=== PATIENT | male | born 1950 | race Caucasian/White ===

== ENCOUNTER 2022-04-22 08:40 | Outpatient (CLI) | payer BC, SELFPAY ==
[2022-04-22 12:32] LABS: Albumin* 4.3 g/dL (3.3-5.0)
[2022-04-22 12:33] LABS: Chloride* 104 mmol/L (96-114); Potassium* 4.7 mmol/L (3.6-5.1); Sodium* 137 mmol/L (135-149)
[2022-04-22 12:35] LABS: Aspartate Amino Transferase* 23 U/L (12-35); Bilirubin Total* 0.6 mg/dL (0.1-1.5); Carbon Dioxide* 26 mmol/L (20-32); Cholesterol* 205 mg/dL (90-199); Creatinine* 0.8 mg/dL (0.5-1.5); Estimated Glomerular Filt Rate 95 ml/min; Total Protein* 7.1 g/dL (6.0-8.3)
[2022-04-22 12:36] LABS: Alanine Aminotransferase* 11 U/L (4-50); Alkaline Phosphatase* 90 U/L (40-150); Blood Urea Nitrogen* 18 mg/dL (7-30); Calcium* 9.1 mg/dL (8.4-10.6); Glucose* 100 mg/dL (60-115); HDL Cholesterol* 59 mg/dL (>=40); LDL Cholesterol Calculated 129 mg/dL (<100); Triglycerides* 87 mg/dL (40-149)
[2022-04-22 13:03] LABS: PSA Screen* 0.14 ng/mL (0.10-4.00)
== END 2022-04-22 08:41 | disposition home or self-care (01) ==
LOC: LKVLAB 08:41
PROVIDERS: PCP Physician Assistant Medical; Visit Provider Physician Assistant Medical
DX: Z00.00 Encounter for general adult medical examination without abnormal findings (principal); Z12.5 Encounter for screening for malignant neoplasm of prostate; E03.9 Hypothyroidism, unspecified; E78.00 Pure hypercholesterolemia, unspecified
CPT/HCPCS: 36415; 80053; 80061; 84153; 84443

== ENCOUNTER 2022-05-26 07:06 | Outpatient (CLI) | payer BC, SELFPAY | END 2022-05-26 07:07 | disposition home or self-care (01) | PROVIDERS: PCP Physician Assistant Medical; Visit Provider Surgery | DX: Z12.11 Encounter for screening for malignant neoplasm of colon (principal); K63.5 Polyp of colon; N42.9 Disorder of prostate, unspecified; K57.30 Diverticulosis of large intestine without perforation or abscess without bleeding; Z80.0 Family history of malignant neoplasm of digestive organs | CPT/HCPCS: 45385; 88305; 99153; J1200; J2250; J3010 ==

== ENCOUNTER 2022-08-22 14:16 | Outpatient (CLI) | payer BC, SELFPAY ==
[2022-08-22 23:14] LABS: C Reactive Protein* 2.1 mg/dL (0.5-1.0)
== END 2022-08-22 14:17 | disposition home or self-care (01) ==
LOC: LKVREF 14:19
PROVIDERS: PCP Physician Assistant Medical; Visit Provider Nurse Practitioner Family
DX: M25.551 Pain in right hip (principal); M25.552 Pain in left hip
CPT/HCPCS: 86140

== ENCOUNTER 2023-02-06 09:15 | Outpatient (CLI) | payer BC, SELFPAY | END 2023-02-06 09:16 | disposition home or self-care (01) | LOC: LAB 09:16 | PROVIDERS: PCP Physician Assistant Medical; Visit Provider Orthopaedic Surgery Sports Medicine | DX: Z98.890 Other specified postprocedural states (principal) | CPT/HCPCS: 36415; 86850; 86900; 86901 ==

== ENCOUNTER 2023-02-08 08:43 | Day surgery (SDC) | payer BC, SELFPAY ==
[2023-02-08] VITALS (23 sets, daily range): BP systolic 103–154; BP diastolic 62–87; PULSE 62–783; RESP 14–18; TEMP 35.6–36.7; O2SAT 95–100; BMI 25.4
[2023-02-08] MEDS: LACTATED RINGERS 1000 ML 1,000 ML 100 ML IV ×2 (09:00→12:22)
[2023-02-08] MEDS: ACETAMINOPHEN 500 MG TABLET 1000 MG PO ×3 (09:16→23:29)
[2023-02-08] MEDS: CELECOXIB 200 MG CAPSULE PO ×2 (09:17→21:29)
[2023-02-08] MEDS: OXYCODONE (CR) 10 MG TAB.ER.12H PO (09:17)
[2023-02-08] MEDS: SODIUM CHLORIDE 0.9 % (FLUSH) 10 ML SYRINGE IVF (09:44)
--- NOTE | 2023-02-08 09:57 | CRLHL7_ITS ---
For Patients: As a result of the Cures Act, medical imaging exams and procedure reports are released immediately into your electronic medical record. You may view this report before your referring provider. If you have questions, please contact your health care provider. Indication: Postop Technique: AP hip centered pelvis and lateral view left hip Findings/Impression: Hardware from a left total hip arthroplasty is in satisfactory position. Bone alignment is normal. No sign of acute fracture. Postop changes are within normal limits. Dictated by Eris Meraz MD @ 02/08/2023 3:25:59 PM (Electronically Signed)
[2023-02-08] MEDS: fentaNYL 100 MCG/2 ML inj IVP (10:42)
--- NOTE | 2023-02-08 10:42 | SUR.PREOP ---
TIME?OUT:?1042 PT/RN/MDA?VERIFICATION?OF?SURGICAL?SITE,?PROCEDURE,?AND?CONSENT OBTAINED?PRIOR?TO?INVASIVE?PROCEDURE.
[2023-02-08] MEDS: MIDAZOLAM HCL 1 MG/ML inj IVP (10:53)
--- NOTE | 2023-02-08 11:00 | CRLHL7_ITS ---
For Patients: As a result of the Cures Act, medical imaging exams and procedure reports are released immediately into your electronic medical record. You may view this report before your referring provider. If you have questions, please contact your health care provider. Indication: Hip replacement surgery Technique: AP hip fluoroscopic images. Fluoroscopy time 43.5 seconds. Findings/Impression: Hardware from a left total hip arthroplasty is in satisfactory position. Dictated by Eris Meraz MD @ 02/08/2023 3:24:58 PM (Electronically Signed)
--- NOTE | 2023-02-08 11:22 | P.NB_ITS ---
Nerve Block Nerve Block Time Seen by Provider: 10:45 Date Seen: 02/08/23 Type of block requested by surgeon for post-operative analgesia: NYA/LFCN Side: left Time out performed: Yes Verification of patient name: Yes Verification of date of : Yes Site marking: site marked Name of person performing procedure: Geoffrey Continuous monitoring Was continuous monitoring of O2 sat, B/P, environmental monitoring specialist, recorded every 15 minutes?: Yes Procedure Checklist: sterile prep, needles and gloves Ultrasound guided. Images saved: Yes Medications given in 5ml increments after negative aspiration: Ropivicaine %: 0.5 mL: 30 Needle gauge: 20 Decadron (mg): 10 Precedex (mcg): 25 Patient tolerated procedure well: Yes Additional comments: Needle noted below psoas tendon needle noted adjacent to LFCN Block Charges Block Charge (with Pro Fee): Other Periph Nerve Block Use of Ultrasound Machine for Block: Yes- US Guidance/pain block
--- NOTE | 2023-02-08 11:22 | W.ANESCHARGE ---
Anesthesia Charges Start Date/Time Anesthesia Start Date: 02/08/23 Anesthesia Start Time: 11:50 Stop Date/Time Anesthesia Stop Date: 02/08/23 Anesthesia Stop Time: 14:40 Summary Extremes of Age - Over 70 or under 1: MDA
[2023-02-08] MEDS: CEFAZOLIN 2 GM in 0.9 % SODIUM CHLORIDE Mini-bag 100 ML IVPB ×2 (12:02→17:55)
[2023-02-08] MEDS: TRANEXAMIC ACID 100 MG/ML INJ 1000 MG IV (12:05)
--- NOTE | 2023-02-08 13:50 | P.ORPRC_ITS ---
Procedure Note Date of procedure: 02/08/23 Procedure: PREOPERATIVE DIAGNOSIS: 1. Left hip osteoarthritis, severe, primary POSTOPERATIVE DIAGNOSIS: 1. Left hip osteoarthritis, severe, primary PROCEDURE: 1. Left total hip arthroplasty-anterior approach 2. 17991 - intraoperative fluoroscopy up to 1 hour. SURGEON: Chris Gaston MD. RACE AND SPORTS BOOK WRITER: Mil Herrera PA-C; CALLIE Schulz - Of note, a skilled food and beverage assistant manager was critical for this case to aid in patient positioning, tissue retraction, limb manipulation/positioning, dislocation/relocation, patient safety, and closure. ANESTHESIA: Spinal anesthetic EBL: 300ml IMPLANTS: DePuy J&J uncemented total hip Troy cup size 54, hole eliminator, +4 neutral liner Actis stem, standard offset, size 12 +1.5 mm ceramic 36 mm head. COMPLICATIONS: None evident INDICATIONS: The patient is a pleasant 72-year-old male who has experienced severe left hip pain and difficulty bearing weight. Workup included x-rays which revealed severe osteoarthrosis in the hip. Given the deformity, the dysfunction, and the pain, as well as the failure of nonoperative management, recommendation was made for surgery. FINDINGS: Full-thickness chondral loss femoral head broadly. Acetabular osteophytes. Moderate effusion upon entering the joint. DESCRIPTION OF PROCEDURE: Following a thorough discussion of risks, benefits, and alternatives consent was obtained and the left hip was marked. The patient was brought to the operating room and placed supine on the operating table. Induction of anesthesia was undertaken. 2 g IV Ancef and 1 g tranexamic acid was administered within 1 hr of incision preoperatively. Proper time-out was performed identifying proper patient, site, procedure. The operative extremity was prepped and draped in the appropriate sterile fashion using ChloraPrep after the patient was positioned on the [place] table with head in neutral alignment and all bony prominences well padded. C-arm fluoroscopic imaging was utilized to confirm proper pelvis rotation and position, and to get true AP films of both the contralateral left, and the affected left hip. This is for comparison. A longitudinal incision was made starting approximately 1 cm distal to the ASIS, and 3-4 cm lateral. The incision was extended distally aiming toward the lateral border the patella. Sharp incision through skin and bovie cautery through the subcutaneous tissue allowed identification of the TFL fascia. This was sharply divided, and the fascia bluntly released from the muscle fibers as we dissected medial. Upon coming to the medial border, we were able to retract the TFL laterally, and penetrated the deeper fascia and identify the crossing circumflex vessels. These were ligated/cauterized. The rectus was elevated from the capsule, and retractors placed laterally and medially along the femoral neck to help with visualization of the capsule. We then performed an inverted T capsulotomy. The capsule was tagged for later repair. Retractors were placed inside the capsule. The femoral neck was visua lized after releasing medially down to the lesser trochanter, along the saddle laterally, and up onto the acetabulum. The femoral neck cut was made in line with our preoperative templating. The head was removed in a single piece, and sized. We turned our attention to acetabular preparation. Initially, the labrum was resected from around the perimeter, the pulvinar was excised, allowing us to vi sualize the false wall. We started the reaming with a 43 mm reamer. This was medialized down to the true wall. We then enlarged our reamers sequentially up to one size less than the selected cup size. We trialed at the same size and found it to have an excellent fit. The selected cup was then opened, inserted, and impacted in line with the goal of 40-45? of abduction, and 20-25? of anteversion. This was confirmed on C-arm fluoroscopic imaging to be in the appropriate/goal position. Once the cup was placed we placed a hole eliminator and a liner consistent with preop planning. Attention was turned to the femoral preparation. The limb was extended, externally rotated, and adducted. The posteromedial capsule was released, as retractors were placed allowing excellent access to the proximal femur. Initially a boxer operator was followed by canal finder followed by various broaches. We broached sequentially up to size noted above, found it to have excellent rotational control, and trialing various heads and necks, revealed that appropriate neck offset, and the above noted head size provided the greatest stability, and nondenominational of length, and offset. C-arm fluoroscopic imaging confirmed position of the stem, as well as leg lengths, which were compared with the pre procedure all fluoroscopic images. Trial implants were removed, the real femoral stem inserted, as was the ceramic head. After reducing, the leg was placed through range of motion and stability was confirmed anterior, posterior, and lateral. A 3 min Betadine soak was then performed, and thorough irrigation with normal saline followed. Closure of the capsule was performed with #1 PDS. Bleeding was confirmed to be controlled at this stage, and the TFL fascia was closed with #0 strata fix. Subcutaneous, and subcuticular closure was performed with 2-0 Vicryl and 4-0 Monocryl, respectively. Dressings were applied, and the patient was awoken from anesthesia and transferred the PACU in stable condition. A skilled food and beverage assistant manager was critical for this case to aid in patient positioning, tissue retraction, proximal femur exposure, limb manipulation/positioning, dislocation/relocation, patient safety, and closure. PLAN: 1. Weight bear as tolerated operative extremity. 2. 23 hr perioperative antibiotics. 3. Ice. 4. PT/OT consults for ambulation assistance/mobility education. 5. Social work consult for discharge planning. 6. DVT prophylaxis with at SCDs, Kp Hose, and Xarelto x5 days followed by aspirin for a total of 1 month..
--- NOTE | 2023-02-08 14:37 | W.ANESCHARGE ---
Anesthesia Charges Start Date/Time Anesthesia Start Date: 02/08/23 Anesthesia Start Time: 11:50 Stop Date/Time Anesthesia Stop Date: 02/08/23 Anesthesia Stop Time: 14:40
--- NOTE | 2023-02-08 16:01 | PM.IMCN1 ---
Date of Consult Patient: [facility] Patient Consult date: 02/08/23 Requesting Physician: Orthopedics Primary Care Provider: Collette Gardner PA-C Consult Narrative Reason for consult: Medical management of comorbidities Narrative: Devin Desai is a 72 year old male who presented to the hospital today for an elective L ARACELI. There were no surgical or anesthetic complications noted during procedure. Patient's H&P reviewed, PCP is Collette Gardner. Past medical history significant for: Vasculitis (no steroids for >1 year), mitral valve repair, thoracic aortic aneurysm (followed by [facility] annually), prostate cancer, hypothyroidism. Postoperative plan: Home with in [place]. Review of Systems Status of ROS: Reports: 10 or more systems reviewed and unremarkable except as noted in History and below [facility] Medical History (Updated 01/04/23 @ 11:42 by Collette Gardner PA-C) Squamous cell skin cancer ?C44.92 - Squamous cell carcinoma of skin, unspecified (ICD-10) Basal cell carcinoma (07/29/10) ?C44.91 - Basal cell carcinoma of skin, unspecified (ICD-10) Malignant neoplasm of prostate ?C61 - Malignant neoplasm of prostate (ICD-10) Elevated prostate specific antigen (PSA) ?R97.20 - Elevated prostate specific antigen [PSA] (ICD-10) Surgical History (Updated 02/08/23 @ 16:04 by Milagro Patriico MD) Status post left hip replacement ?Z96.642 - Presence of left artificial hip joint (ICD-10) History of mitral valve repair ?Z98.890 - Other specified postprocedural states (ICD-10) History of total thyroidectomy (07/29/10) ?E89.0 - Postprocedural hypothyroidism (ICD-10) Family History (Updated 01/17/23 @ 09:32 by Navya Castro RN) Brother Colon cancer Heart disease Brain cancer Father Abdominal aortic aneurysm Colon cancer Angina at rest Mother Diabetes Social History (Reviewed 08/25/22 @ 10:20 by Dorothy Brewer ~ [facility], [facility]) Narrative: - 1 adult child; 2 grandchildren; 1 great granddaughter that he helps care for. resides with them during the summer months; malone in [place] with his non-tobacco user Smoking Status: Never smoker Do you use any of these nicotine containing products: None How often do you have a drink containing alcohol: 4 or more times a week Alcohol type: wine How many standard drinks containing alcohol do you have on a typical day: 1 or 2 How often do you have six or more drinks on one occasion: Never AUDIT-C Alcohol total score: 4 Non-prescribed substance use: denies use Caffeine: Yes (1 cup/AM) Little interest or pleasure in doing things: not at all Feeling down, depressed, or hopeless: not at all service: Yes Meds Home Medications and Allergies Allergies Allergy/AdvReac Type Severity Reaction Status Date / Time penicillin V Allergy Intermediate Rash Verified 02/08/23 09:17 amoxicillin Allergy Mild Rash Verified 02/08/23 09:17 Exam Narrative: Exam Narrative: GEN: Alert and oriented, laying comfortably in bed HEENT: EOMIs bilaterally, no scleral icterus CV: RRR, + murmur heard best in left mid axillary line R: LCTA bilaterally without concerning wheezing, air movement adequate Ext: wearing Kp hose bilaterally Skin: No concerning skin lesions or rashes on exposed skin Neuro: Nonfocal Psych: Appropriate Const: Vital Signs, click to edit/add: Vital Signs - 24 hr 02/08/23 09:25 02/08/23 10:42 02/08/23 10:45 Temperature 98.1 F Pulse Rate 70 68 68 Respiratory Rate 16 16 16 Blood Pressure 149/87 H 154/79 H 129/74 Pulse Oximetry 95 97 100 Oxygen Delivery Me thod Nasal Cannula Nasal Cannula Oxygen Flow Rate 2 2 02/08/23 14:35 02/08/23 14:40 02/08/23 14:45 Temperature 97.6 F Pulse Rate 86 82 90 Respiratory Rate 14 16 16 Blood Pressure 116/77 115/79 121/71 Pulse Oximetry 97 98 98 Oxygen Delivery Me thod Room Air Room Air Room Air Oxygen Flow Rate 02/08/23 14:50 02/08/23 14:55 02/08/23 15:00 Temperature 97.4 F L Pulse Rate 82 76 76 Respiratory Rate 14 16 18 Blood Pressure 111/76 114/80 114/77 Pulse Oximetry 98 97 97 Oxygen Delivery Me thod Room Air Room Air Room Air Oxygen Flow Rate 02/08/23 15:05 02/08/23 15:46 Temperature 97.7 F Pulse Rate 783 H Respiratory Rate 18 Blood Pressure 112/76 Pulse Oximetry 98 97 Oxygen Delivery Me thod Room Air Room Air Oxygen Flow Rate Assessment and Plan Assessment and plan (1) Status post left hip replacement: Problem comment: - 02/08/23, Dr. Gaston Status: Acute Plan - pain management and prophylaxis per orthopedic surgery team - continue home medications for comorbidities as noted in HPI - anticipate routine postoperative course - updated at bedside, questions answered
[2023-02-08] MEDS: ONDANSETRON 2 MG/ML inj 4 MG IVP ×2 (16:55→21:29)
[2023-02-08] MEDS: OXYCODONE 5 MG TABLET PO ×3 (16:55→23:30)
[2023-02-08] MEDS: HYDROmorphone 0.5 mg/0.5 ml inj IVP (17:52)
[2023-02-08] MEDS: LACTATED RINGERS 1000 ML 1,000 ML 75 ML IV (17:58)
--- NOTE | 2023-02-08 18:34 | PC.NURSE ---
End of Shift: Pt arrived to med/surg unit post LTH repair. Pain well-controlled with PO oxycodone ranging from 0-7/10. Pt reported some nausea, IV zofran administered, nausea resolved. Tolerating ice chips, water, and crackers well. Pt has not yet ambulated. No void or BM. VS stable. O2 97-100% RA
[2023-02-08] MEDS: PROCHLORPERAZINE 10 MG TABLET 5 MG PO (20:34)
[2023-02-08] MEDS: SENNOSIDES 1 TAB TABLET 2 TAB PO (21:29)
[2023-02-09] MEDS: CEFAZOLIN 2 GM in 0.9 % SODIUM CHLORIDE Mini-bag 100 ML IVPB (01:36)
[2023-02-09 01:38] VITALS: BP 102/61; PULSE 78; RESP 16; TEMP 36.2; O2SAT 96
[2023-02-09] MEDS: OXYCODONE 5 MG TABLET PO ×2 (01:42→08:36)
[2023-02-09] MEDS: ACETAMINOPHEN 500 MG TABLET 1000 MG PO (05:44)
--- NOTE | 2023-02-09 06:24 | PC.NURSE ---
[id number]: Patient cooperative with cares. Dressing to L. hip C/D/I. CMS intact. A1/walker/GB. PRN Oxycodone and active ice for pain management. Pt c/o nausea for first half of shift and medications administered accordingly. Nausea subsided by 0100 and patient reports feeling better.
[2023-02-09 07:00] VITALS: RESP 16
[2023-02-09 07:19] LABS: Basophils Percent Auto 0.1 % (0.0-3.0); Hematocrit 34.8 % (37.0-53.0); Hemoglobin* 11.6 gm/dL (13.5-17.5); Immature Granulocytes Pct Auto 0.3 %; Lymphocytes Percent Auto 5.7 % (20-44); Mean Corpuscular HGB Conc 33 gm/dL (32-36); Mean Corpuscular Hemoglobin 33 pg (26-34); Mean Corpuscular Volume 99 fL (80-100); Monocytes Percent Auto 11.6 % (0.0-11.0); Neutrophils Percent Auto 82.3 % (42.0-72.0); Platelet Count* 171 K/uL (140-440); RDW Coefficient of Variation % 13.2 % (11.5-15.5); Red Blood Count 3.51 m/uL (4.30-5.90); White Blood Count* 14.42 K/uL (4.50-11.00)
[2023-02-09 07:29] LABS: Slide Review Reflex No
[2023-02-09 07:42] LABS: Potassium* 4.2 mmol/L (3.6-5.1); Sodium* 135 mmol/L (135-149)
[2023-02-09 07:44] LABS: Creatinine* 0.7 mg/dL (0.5-1.5); Est. Creatinine Clearance* 69.96; Estimated Glomerular Filt Rate 99 ml/min
[2023-02-09 07:45] LABS: Blood Urea Nitrogen* 20 mg/dL (7-30)
[2023-02-09] MEDS: RIVAROXABAN 10 MG TABLET PO (08:36)
[2023-02-09] MEDS: SENNOSIDES 1 TAB TABLET 2 TAB PO (08:36)
[2023-02-09] MEDS: CELECOXIB 200 MG CAPSULE PO (08:36)
[2023-02-09 09:00] VITALS: BP 113/76; PULSE 76; RESP 16; TEMP 36; O2SAT 99
--- NOTE | 2023-02-09 09:04 | PM.ORPN ---
Subjective Subjective Date Seen: 02/09/23 Principal diagnosis: Status postop day 1, left total hip arthroplasty - anterior approach Interval history: Patient reports doing well. No acute events over night. Some nausea yesterday, resolved with medication. Had breakfast this morning without issue. Pain managed with scheduled and PRN medications, ice. DVT prophylaxis: Rivaroxaban, bilateral knee high Kp stockings, SCDs, walking. Denies fevers, chills, aches, N/V, CP, SOB/CLARK, or lightheadedness at this time. Reports to me nearly 15 years of prednisone use for vasculitis, but has not been taking his medication for quite some time now as the vasculitis is in remission. Ortho Exam Narrative Exam Narrative: -Patient appears comfortable in recliner, family present; no apparent acute distress -Alert and oriented times 3 -Operative hip mildly swollen; soft tissues supple; no obvious erythema. Ecchymosis noted medial to the bandage. Warmth appropriate -Surgical dressing clean, dry, intact; no obvious drainage, no erythematous streaking peripheral to the bandage -Bilateral calves soft and supple; no significant swelling, edema, tenderness, erythema, discoloration, warmth, or palpable cords -2+ DP/PT pulses, intact dermatomes and myotomes distally (5/5 strength). Noted numbness about the lateral femoral cutaneous nerve distribution. Const Vital Signs, click to edit/add: Vital Signs - 24 hr 02/08/23 09:25 02/08/23 10:42 02/08/23 10:45 Temperature 98.1 F Pulse Rate 70 68 68 Pulse Rate [Right Pulse Oximeter] Respiratory Rate 16 16 16 Blood Pressure 149/87 H 154/79 H 129/74 Blood Pressure [Left Arm] Pulse Oximetry 95 97 100 Oxygen Delivery Method Nasal Cannula Nasal Cannula Oxygen Flow Rate 2 2 02/08/23 14:35 02/08/23 14:40 02/08/23 14:45 Temperature 97.6 F Pulse Rate 86 82 90 Pulse Rate [Right Pulse Oximeter] Respiratory Rate 14 16 16 Blood Pressure 116/77 115/79 121/71 Blood Pressure [Left Arm] Pulse Oximetry 97 98 98 Oxygen Delivery Method Room Air Room Air Room Air Oxygen Flow Rate 02/08/23 14:50 02/08/23 14:55 02/08/23 15:00 Temperature 97.4 F L Pulse Rate 82 76 76 Pulse Rate [Right Pulse Oximeter] Respiratory Rate 14 16 18 Blood Pressure 111/76 114/80 114/77 Blood Pressure [Left Arm] Pulse Oximetry 98 97 97 Oxygen Delivery Method Room Air Room Air Room Air Oxygen Flow Rate 02/08/23 15:05 02/08/23 15:10 02/08/23 15:25 Temperature 97.7 F 96.8 F L 96.1 F L Pulse Rate 783 H Pulse Rate [Right Pulse Oximeter] 78 76 Respiratory Rate 18 16 18 Blood Pressure 112/76 Blood Pressure [Left Arm] 111/73 106/83 Pulse Oximetry 98 Oxygen Delivery Method Room Air Room Air Room Air Oxygen Flow Rate 02/08/23 15:40 02/08/23 15:46 02/08/23 15:50 Temperature 96.1 F L 96.8 F L Pulse Rate 78 Pulse Rate [Right Pulse Oximeter] 75 Respiratory Rate 16 16 Blood Pressure Blood Pressure [Left Arm] 115/62 111/73 Pulse Oximetry 97 97 Oxygen Delivery Method Room Air Room Air Room Air Oxygen Flow Rate 02/08/23 15:55 02/08/23 16:10 02/08/23 16:40 Temperature 96.8 F L 96.1 F L 96.8 F L Pulse Rate Pulse Rate [Right Pulse Oximeter] 73 70 71 Respiratory Rate 16 16 18 Blood Pressure Blood Pressure [Left Arm] 103/67 104/71 110/64 Pulse Oximetry 97 97 100 Oxygen Delivery Method Room Air Room Air Room Air Oxygen Flow Rate 02/08/23 17:10 02/08/23 18:10 02/08/23 19:00 Temperature 96.8 F L 96.8 F L 96.9 F L Pulse Rate Pulse Rate [Right Pulse Oximeter] 62 62 74 Respiratory Rate 18 18 18 Blood Pressure Blood Pressure [Left Arm] 113/79 117/66 118/75 Pulse Oximetry 100 100 97 Oxygen Delivery Method Room Air Room Air Room Air Oxygen Flow Rate 02/08/23 20:00 02/08/23 21:00 02/08/23 21:00 Temperature 96.9 F L 98.1 F 98.1 F Pulse Rate Pulse Rate [Right Pulse Oximeter] 91 74 74 Respiratory Rate 18 16 16 Blood Pressure Blood Pressure [Left Arm] 112/67 114/73 114/73 Pulse Oximetry 98 98 98 Oxygen Delivery Method Room Air Room Air Room Air Oxygen Flow Rate 02/09/23 01:38 02/09/23 07:00 Temperature 97.1 F L Pulse Rate Pulse Rate [Right Pulse Oximeter] 78 Respiratory Rate 16 16 Blood Pressure Blood Pressure [Left Arm] 102/61 Pulse Oximetry 96 Oxygen Delivery Method Room Air Oxygen Flow Rate Assessment and Plan Assessment and plan (1) Status post left hip replacement: Problem details: - 02/08/23, Dr. Gaston Status: Acute Plan - Complete 23 hour perioperative antibiotics. - PT/OT consult for education and assistance. - Social work consult for discharge planning - Prescribed analgesics as needed (of note, insurance only improved 28 tablets of 5 mg oxycodone for discharge) - DVT prophylaxis: Rivaroxaban for 5 days, followed by 81 mg aspirin by mouth twice daily 25 days, bilateral knee high Kp Hose stockings and SCDs - Anticipation is for discharge to home with family 02/09/2023 if the patient remains medically stable, pain is controlled, and they are safe with mobilization.
[2023-02-09 10:00] VITALS: BP 112/76; PULSE 78; RESP 16; TEMP 36
== END 2023-02-09 10:50 | disposition home or self-care (01) ==
LOC: OR 08:45 → MEDSURG 08:47
PROVIDERS: PCP Physician Assistant Medical; Visit Provider Orthopaedic Surgery Sports Medicine
PROC: (CPT 27130; principal; 2023-02-08 11:00)
DX: M16.11 Unilateral primary osteoarthritis, right hip (principal); G89.18 Other acute postprocedural pain
CPT/HCPCS: 27130; 01214; 36415; 64450; 73501; 76000; 76942; 82565; 84132; 84295; 84520; 85025; 97110; 97116; 97161; 97165; 99100; A9270; C1776; J0690; J1100; J1170; J2250; J2370; J2405; J2704; J2795; J3010; J7120

== ENCOUNTER 2023-03-08 13:45 | Outpatient (RCR) | payer BC, SELFPAY | END 2023-07-06 23:59 | disposition home or self-care (01) | PROVIDERS: PCP Physician Assistant Medical; Visit Provider Orthopaedic Surgery Sports Medicine | DX: M16.12 Unilateral primary osteoarthritis, left hip (principal); Z96.642 Presence of left artificial hip joint; M25.552 Pain in left hip; M25.652 Stiffness of left hip, not elsewhere classified; Z51.89 Encounter for other specified aftercare | CPT/HCPCS: 97110; 97140; 97161; 97535 ==

== ENCOUNTER 2023-07-31 09:33 | Outpatient (CLI) | payer BC, SELFPAY | END 2023-07-31 09:34 | disposition home or self-care (01) | PROVIDERS: PCP Physician Assistant Medical; Visit Provider Physician Assistant Medical | DX: Z00.00 Encounter for general adult medical examination without abnormal findings (principal); D64.9 Anemia, unspecified; E03.9 Hypothyroidism, unspecified; Z12.5 Encounter for screening for malignant neoplasm of prostate; Z13.6 Encounter for screening for cardiovascular disorders; Z13.1 Encounter for screening for diabetes mellitus | CPT/HCPCS: 80053; 80061; 84153; 84443 ==

== ENCOUNTER 2024-05-02 10:21 | Outpatient (CLI) | payer BC, MEDICARE, SELFPAY ==
--- OUTSIDE RECORDS SUMMARY | 2024-05-02 10:25 | XMS_ITS | Encounter Summary ---
Author Organization Pending sale to [facility] Address [address], [place] [address] Care Team Providers Care [facility] Specialist Name Role Phone Unassigned, Provider Primary Care Provider Unava ilable Encounter Details Date Type Department Care Team (Latest Contact Info) Description 05/30/1995 Orders Only Ryan Sim DDS Social History Tobacco Use Types Packs/Day Years Used Date Smoking Tobacco: Never Assessed Sex and Gender Information Value Date Recorded Sex Assigned at Not on file Gender Identity Not on file Sexual Orientation Not on file documented as of this encounter Plan of Treatment Not on file documented as of this encounter Visit Diagnoses Not on filedocumented in this encounter Care Teams [facility] Specialist Relationship Specialty Start Date End Date Unassigned, Provider [address] [place] [address] PCP - General 12/29/05 documented as of this encounter
--- OUTSIDE RECORDS SUMMARY | 2024-05-02 10:25 | XMS_ITS | Clinical Summary ---
Author Organization [facility] Address [address] [place] [address] Care Team Providers Care Bedspread Folder Name Role Phone Unassigned, Provider Primary Care Provider Unava ilable Source Comments You are receiving this document as you are listed as the primary care provider,follow-up provider, or the patient has been referred to you for consultation.This is in compliance with the Medicare andMedicaid EHR Incentive Program,which states Providers who transition their patient to another setting of careor provider of care or refers their patient to another provider of care shouldprovide summary care record for each transition of care or referral. [employer] Allergies Active Allergy Reactions Criticality Noted Date Comments Penicillins Hives High 07/10/2016 Medications Medication Sig Dispensed Refills Start Date End Date Status azaTHIOprine (IMURAN) 50 MG tablet Take 50 mg by mouth daily. Active levothyroxine (SYNTHROID) 150 MCG tablet Take 150 mcg by mouth daily. Active aspirin 81 MG chewable tablet Take 81 mg by mouth daily. Active metoprolol tartrate (LOPRESSOR) 25 MG tablet Take 25 mg by mouth daily. 01/12/2022 Active methylPREDNISolone (MEDROL 21 TABLET DOSEPACK) 4 MG tablet Follow package directions 21 Tablet 01/29/2022 Active methocarbamol (ROBAXIN) 500 MG tablet Take 1 Tablet (500 mg) by mouth at bedtime as needed for Other. 20 Tablet 01/29/2022 Active Active Problems No known active problems Immunizations Name Administration Dates Next Due Td 05/19/1992,07/02/1980 Varicella 06/23/1998(Deferred: Immune by Desire saunders) Social History Tobacco Use Types Packs/Day Years Used Date Smoking Tobacco: Never Smokeless Tobacco: Never Sex and Gender Information Value Date Recorded Sex Assigned at Not on file Gender Identity Not on file Sexual Orientation Not on file Last Filed Vital Signs Vital Sign Reading Time Taken Comments Blood Pressure 150/77 01/29/2022 11:45 AM CDT Pulse 58 01/29/2022 11:45 AM CDT Temperature 36.8 ??C (98.2 ??F) 01/29/2022 11:45 AM C DT Respiratory Rate 18 01/29/2022 11:45 AM CDT Oxygen Saturation 99% 01/29/2022 11:45 AM CDT Inhaled Oxygen Concentration - - Weight - - Height - - Body Mass Index - - Plan of Treatment Health Maintenance Due Date Last Done Comments Colon Cancer Screening Plan Due 1950 Hep C Screening (Preventive Services) 1950 MTM Covered 1950 Adult Preventive Visit 06/22/1999 06/22/1998, 1996 Cholesterol 02/03/2002 02/03/1997 COVID-19 Vaccine ( season) 2024 05/11/2021 Influenza (#1) 2024 06/01/2021, 04/15, 04/23/2019, Additional history exists RSV (1 - 1-dose 75+ series) 2026 DTaP/Tdap/Td (3 - Tdap) 12/21/2030 12/22/19, 09/06/2013, 01/05/2006, Additional history exists Zoster/Shingles Completed 12/09/2018, 11/0 01/2018, 02/25/2015 Pneumococcal 65+ Yrs Completed 12/27/2018, 10/31/2017, 01/31/2017, Additional history exists HepA Aged Out No longer eligi ble based on patient's age to complete this topic HepB Aged Out No longer eligi ble based on patient's age to complete this topic Hib Aged Out No longer eligi ble based on patient's age to complete this topic IPV (Polio) Aged Out No longer eligi ble based on patient's age to complete this topic MCV4 Aged Out No longer eligi ble based on patient's age to complete this topic Procedures Procedure Name Priority Date/Time Associated Diagnosis Comments LIPID PANEL, FAST > 12 HOUR Routine 02/03/1997 9:27 AM CDT from Last 3 Months or Most Recently Relevant to Health Maintenance Results * FASTING LIPID PANEL (>12HR FAST) INCL:CHOL,HDL,TRIG,LDL(CALC (02/03/1997 9:27 AM CDT) Cholesterol 155 <240 mg/dl [facility] Triglyceride 65 <300 mg/dl [facility] HDL 49 >35 mg/dl [facility] LDL, Calc. 93 mg/dl [facility] Hours Fasting 12 hours [facility] 02/03/1997 9:27 AM CDT 02/03/1997 9:28 AM CDT Gustavo Rust MD [facility] [address] [address] from Last 3 Months or Most Recently Relevant to Health Maintenance Care Teams Bedspread Folder Relationship Specialty Start Date End Date Unassigned, Provider [address] [place] [address] PCP - General 12/29/05
--- OUTSIDE RECORDS SUMMARY | 2024-05-02 10:25 | XMS_ITS | Clinical Summary ---
Author Organization [facility] Address [address] [place] [address] Care Team Providers Care Medical Records Secretary Name Role Phone Unavailable Primary Care Provider Unavailabl e Source Comments Patient records contain information from all sites at [facility]. For routine questions regarding patient records, call [phone] during business hours, M-F 8:00 AM - 5:00 PM Central Time. Record requests for emergency care only can be directed to [phone] at any time.[facility] Allergies Active Allergy Reactions Criticality Noted Date Comments Amoxicillin Rash 02/09/2004 Penicillins Hives (Reselect Reaction) High 6 Medications Medication Sig Dispensed Refills Start Date End Date Status levothyroxine (SYNTHROID, LEVOTHROID) 137 mcg tablet Take 137 mcg by mouth every morning before breakfast. 0 10/17/2018 Active niacin 500 mg ER capsule Take 500 mg by mouth at bedtime. Active aspirin [address] tablet Take 81 mg by mouth daily. Every other day Active sildenafiL (Viagra) 100 mg tablet 20 mg 03/08/2020 Active UNABLE TO FIND Take by mouth. Ukzlejs-Xajhi-Rwlu -PassF-LBalm (MELATONIN + L-THEANINE) CAPS Active naproxen sodium 220 mg capsule Take 220 mg by mouth as needed. Active oxyCODONE (ROXICODONE) 5 mg immediate release tablet Take 5 mg by mouth as needed for pain. 02/08/2023 Active Senexon-S 8.6-50 mg per tablet Take by mouth as needed. 02/08/2023 Active acetaminophen (TYLENOL) 500 mg tablet Take 500 mg by mouth every 6 (six) hours as needed for pain. Active methocarbamoL (Robaxin) 500 mg tablet Take 500 mg by mouth daily as needed. 01/29/2022 Active metoprolol tartrate (Lopressor) 25 mg tablet Take 25 mg by mouth daily. 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 Aneurysm Aortic Without Rupture (HCC); Vasculitis (HCC) Discharge Disposition: Home or Self Care 02/19/2024 8:30 AM CDT Clinical Communication Virtual Review in [address] [address] Pre-visit Intake from Last 3 Months Immunizations Name Administration Dates Next Due HZV (ZOSTAVAX) 02/25/2015 Family History Medical History Relation Name Comments Colon cancer Brother 1 Isaiah Desai Diabetes Brother 2 Abhishek Desai Relation Name Status Comments Brother 1 Isaiah Desai Brother 2 Abhishek Desai Social History Tobacco Use Types Packs/Day Years Used Date Smoking Tobacco: Never Smokeless Tobacco: Never Tobacco Cessation:Counseling Given: Not Answered Alcohol Use Standard Drinks/Week Comments Yes 3 (1 standard drink = 0.6 oz pur e alcohol) [facility] Utilities Answer Date Recorded In the past 12 months has e [employer], gas, oil, or water company threatened to shut off services in your home? No 02/14/2024 Humiliation, Afraid, Rape, and Kick questionnair e Answer Date Recorded Within the last year, have y ou been afraid of your partner or ex-partner? No 02/12/2023 Within the last year, have y ou been humiliated or emotionally abused in other ways by your partner or ex-partner? No Within the last year, have y ou been kicked, hit, slapped, or otherwise physically hurt by your partner or ex-partner? No 02/12/2023 Within the last year, have y ou been raped or forced to have any kind of sexual activity by your partner or ex-partner? No 02/12/2023 Social Connection and Isolat ion Panel [NHANES] Answer Date Recorded In a typical week, how many times do you talk on the phone with family, friends, or neighbors? Twice a week 12/18/2021 How often do you get togethe r with friends or relatives? More than three times a week 12/18/2021 How often do you attend [facility] or uatsdin services? Never 12/18/2021 Do you belong to any clubs o r organizations such as scientology groups, unions, fraternal or athletic groups, or school groups? Yes 12/18/2021 How often do you attend meet ings of the clubs or organizations you belong to? Never 12/18/2021 Are you , , di vorced, , never , or living with a partner? 12/18/2021 AUDIT-C Answer Date Recorded Q1: How often do you have a drink containing alcohol? 4 or more times a week 12/18/2021 Q2: How many drinks containi ng alcohol do you have on a typical day when you are drinking? 1 or 2 2 Q3: How often do you have si x or more drinks on one occasion? Never 12/18/2021 Overall Financial Resource Strain (CARDIA) Answe r Date Recorded How hard is it for you to pa y for the very basics like food, housing, medical care, and heating? Not very hard 02/12/2023 [facility] of Occupat ional Health - Occupational Stress Questionnaire Answer Date Recorded Do you feel stress - tense, restless, nervous, or anxious, or unable to sleep at night because your mind is troubled all the time - these days? Only a little 12/18/2021 Exercise Vital Sign Answer Date Recorde d On average, how many days pe r week do you engage in moderate to strenuous exercise (like a brisk walk)? 3 days 02/14/2024 On average, how many minutes do you engage in exercise at this level? 90 min 02/14/2024 Hunger Vital Sign Answer Date Recorded Within the past 12 months, y ou worried that your food would run out before you got the money to buy more. Never true 02/14/20 24 Within the past 12 months, t he food you bought just didn't last and you didn't have money to get more. Never true 02/14/2024 PRAPARE - Transportation Answer Date Re corded In the past 12 months, has l ack of transportation kept you from medical appointments or from getting medications? No 10/2023 In the past 12 months, has l ack of transportation kept you from meetings, work, or from getting things needed for daily living? No 02/14/2024 Nutrition Answer Date Recorded On average, how many serving s of fruits and vegetables do you eat per day (serving size is equal to 1 cup or approximately the size of a tennis ball)? 3-5 02/14/2024 Dental Answer Date Recorded Dental: Regular Dentist Yes 12/19/19 Employment Answer Date Recorded Employment status Retired 02/14/2024 Housing Stability Answer Date Recorded What is your living situation today? I have a [facility] place to live 02/14/2024 Education Answer Date Recorded What is the highest level of school you have completed or the highest degree you have received? Associate degree: occupational, technical, or vocational program 12/18/2021 Sex and Gender Information Value Date Recorded Sex Assigned at Male 11/28/2018 12:14 PM CDT Gender Identity Male 11/28/2018 12:14 PM CDT Sexual Orientation Straight 11/28/2018 12 :14 PM CDT Last Filed Vital Signs Vital Sign Reading Time Taken Comments Blood Pressure 164/78 02/21/2024 10:14 AM CDT Pulse 72 02/21/2024 10:14 AM CDT Temperature 36.6 ??C (97.9 ??F) 02/21/2024 1 0:14 AM CDT Respiratory Rate - - Oxygen Saturation - - Inhaled Oxygen Concentration - - Weight 80.2 kg (176 lb 12.9 oz) 024 10:14 AM CDT Height 177.8 cm (5' 10) 02/21/2024 10: 14 AM CDT Body Mass Index 25.37 02/21/2024 10:14 AM CDT Plan of Treatment Health Maintenance Due Date Last Done Comments CT Colonography 1950 Cologuard 1950 Colonoscopy 1950 Colorectal Cancer Surveillance 1950 Thyroid Stimulating Hormone (TSH) test for thyroid function 1950 Depression Screening (Annual PHQ-2) 08/14/2023 Fall Risk Screen (Annual) 08/14/2023 Fasting Glucose for Diabetes Screening 03/07/2024 03/07/2021, 03/06/2021, 03/05/2021, Additional history exists COVID-19 Vaccine (2022-09 4 season) 2024 05/19/2023, 05/11/2021, 11/05/2020, Additional history exists Influenza Vaccine (#1) 2024 , 05/18/2022, 06/01/2021, Additional history exists DTaP,Tdap,and Td Vaccines (3 - Td or Tdap) 12/21/2030 12/21/2020, 09/06/2013, 01/05/2006 Hepatitis C Screening Completed 07/25/2000 Abdominal Aortic Aneurysm (A AA) Screen Discontinued 07/10/2016, 07/14/2013, 05/08/2001, Additional history exists Zoster Vaccines Completed 12/09/2018, 01/2018, 02/25/2015 Pneumococcal vaccine (65+ years) Completed 12/27/2018, 10/31/2017, 01/31/2017, Additional history exists Medical Devices Implanted Type Area [place] Device Identifier Shelf Expiration Date Model / Serial / Lot Cardiac Valve Prosthesis-03/03 Implanted:03/03 (Quantity not on file) Cardiac Valve Prosthesis Mitral Valve Nigel [id number] / [id number] / Hardware E.G. Pins/Screws/Jann s Hardware e.g. pins/screws/r ods Chest Description:Spoke to pt on t he phone. He didn't have his card with him at the time to give the exact information on the clip/wires. 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 (HCC) Vasculitis (HCC) C-REACTIVE PROTEIN (CRP), S/P Routine 02/21/2024 10:00 AM CDT Aneurysm Aortic Without Rupture (HCC) Vasculitis (HCC) SEDIMENTATION RATE, B Routine 02/21/2024 10:00 AM CDT Aneurysm Aortic Without Rupture (HCC) Vasculitis (HCC) CBC WITH DIFFERENTIAL, B Routine 024 10:00 AM CDT Aneurysm Aortic Without Rupture (HCC) Vasculitis (HCC) GLUCOSE, FASTING, S/P Routine 09/12/2012 8:06 AM IT DESKTOP SUPPORT SPECIALIST CT ABDOMEN WITH IV CONTRAST Routine 05/08/2001 10:08 AM CDT from Last 3 Months or Most Recently Relevant to Health Maintenance Results * Sedimentation Rate (02/21/2024 10:00 AM CDT) Sedimentation Rate, B 5 3 - 28 mm/h 02/21/2024 11:58 AM CDT DTL Blood (Blood, Venous) 02/21/2024 10:00 AM CDT 02/21/2024 10:17 AM CDT Vera Fernandez APRN, C.N.P., M.S. LAB BLOOD ADD-ON [facility] [address] [place] [address], [facility] DTL [facility] [address] [place] [address] * (ABNORMAL) CBC with Differential, Blood (02/21/2024 10:00 AM CDT) Hemoglobin 13.5 13.2 - 16.6 g/dL 02/21/2024 11:07 AM CDT DTL Hematocrit 41.8 38.3 - 48.6 % 02/21/2024 11:07 AM CDT DTL Erythrocytes 4.17(L) 4.35 - 5.65 x10(12)/L 02/21/2024 11:07 AM CDT DTL MCV 100.2(H) 78.2 - 97.9 fL 02/21/2024 11:07 AM CDT DTL RBC Distrib Width 12.9 11.8 - 14.5 % 02/21/2024 11:07 AM CDT DTL Platelet Count 233 135 - 317 x10(9)/L 02/21/2024 11:07 AM CDT DTL Leukocytes 7.4 3.4 - 9.6 x10(9)/L 02/21/2024 11:07 AM CDT DTL Neutrophils 4.58 1.56 - 6.45 x10(9)/L 02/21/2024 11:07 AM CDT DHPM Lymphocytes 1.46 0.95 - 3.07 x10(9)/L 02/21/2024 11:07 AM CDT DTL Monocytes 0.88(H) 0.26 - 0.81 x10(9)/L 02/21/2024 11:07 AM CDT DTL Eosinophils 0.40 0.03 - 0.48 x10(9)/L 02/21/2024 11:07 AM CDT DTL Basophils 0.08 0.01 - 0.08 x10(9)/L 02/21/2024 11:07 AM CDT DTL Blood (Blood, Venous) 02/21/2024 10:00 AM CDT 02/21/2024 10:17 AM CDT Vera Fernandez APRN, C.N.P., M.S. LAB BLOOD ADD-ON [facility] [address] [place] [address], [facility] [address] [place] [address] [facility] [address] [place] [address] * CRP (C-Reactive Protein) (02/21/2024 10:00 AM CDT) C-Reactive Protein (CRP), S <3.0 <5.0 mg/L 02/21/2024 11:01 AM CDT DTL Blood (Blood, Venous) 02/21/2024 10:00 AM CDT 02/21/2024 10:38 AM CDT Teetee Sahu APRN.N.Vincent., M.S. LAB BLOOD ADD-ON [facility] [address] [place] [address], [facility] [address] [place] [address] * AST (Aspartate Aminotransferase) (02/21/2024 10:00 AM CDT) Aspartate Aminotransferase (AST), S 29 8 - 48 U/L 02/21/2024 11:01 AM CDT DT Blood (Blood, Venous) 02/21/2024 10:00 AM CDT 02/21/2024 10:38 AM CDT Teetee Sahu APRN.N.P., M.S. LAB BLOOD ADD-ON [facility] [address] [place] [address], [facility] [address] [place] [address] * Creatinine with Estimated GFR (02/21/2024 10:00 AM CDT) Creatinine 0.92 0.74 - 1.35 mg/dL 02/21/2024 11:01 AM CDT DTL Estimated GFR (eGFR) 88 >=60 mL/min/BSA 02/21/2024 11:01 AM CDT DTL Comment: Estimated GFR calculated using the 2020 CKD_EPI creatinine equation. Blood (Blood, Venous) 02/21/2024 10:00 AM CDT 02/21/2024 10:38 AM CDT Vera Fernandez APRN, C.N.P., M.S. LAB BLOOD ADD-ON Performing Organization Address City/[facility] Co de Phone Number [facility] [address] DTL [facility] [address] [place] [address] * Glucose, Fasting (09/12/2012 8:06 AM IT DESKTOP SUPPORT SPECIALIST) Last Intake 13 HR [facility] Glucose, P 96 70 - 100 MG/DL [facility] 09/12/2012 8:06 AM IT DESKTOP SUPPORT SPECIALIST 09/12/2012 8:06 AM IT DESKTOP SUPPORT SPECIALIST Lopez Sahu APRNNMarcos., M.S. LAB BLOOD NON ADD-ON Performing Organization Address [facility] Co de Phone Number [facility] [address] * CT Abdomen with IV Contrast (05/08/2001 10:08 AM CDT) Anatomical Region Laterality Modality Abdomen N/A Computed Tomogra phy 05/08/2001 10:0 8 AM CDT Narrative 05/08/2001 12:28 PM CDT 08-May-2001 10:08:00 ??Exam: CT ABDOMEN w Indications: TH/ABD - ANEURYSM, OLD CHANGES^OF ASCENDING & DESCENDING AORT ORIGINAL REPORT - 08-May-2001 12:28:00 ([id number], [id number]) ??Scan of the entire aorta was carried out from the thoracic aorta all the way to the bifurcation. There is very slight dilatation of the ascending aorta and to a lesser extent of the descending aorta but I really do not think this is an aneurysm just that these areas are generous in size. We compared with the previous examination of 11/08/00 and the measurements of the ascending and descending aorta are exactly the same. There has been no change. Also on today's examination, we see no sign of any type of thickening involving the wall of the aorta that was apparently present before. Small hepatic cysts are present. ?? Dx--531.205 C Ind: [phone] ?? [email or web address] ?? Electronically signed by: ?? Lilia Green MD. ??[id number] 08-May-2001 12:28 Procedure Note Hermilo Green M.D. - 11/17/2017 08-May-2001 10:08:00 Exam: CT ABDOMEN w Indications: TH/ABD - ANEURYSM, OLD CHANGES^OF ASCENDING & DESCENDING AORT ORIGINAL REPORT - 08-May-2001 12:28:00 ([id number], [id number]) Scan of the entire aorta was carried out from thethoracic aorta all the way to the bifurcation. There is very slightdilatation of the ascending aorta and to a lesser extent of the descendingaorta but I really do not think this is an aneurysm just that these areasare generous in size. We compared with the previous examination of11/08/00 and the measurements of the ascending and descending aorta areexactly the same. There has been no change. Also on today's examination,we see no sign of any type of thickening involving the wall of the aortathat was apparently present before. Small hepatic cysts are present. Dx--531.205 C Ind: [id number] [email or web address] Electronically signed by: Lilia Green MD. [id number] 08-May-2001 12:28 Ruddy Torres M.D. IMTrudy CT PROCEDURE S from Last 3 Months or Most Recently Relevant to Health Maintenance
--- OUTSIDE RECORDS SUMMARY | 2024-05-02 10:26 | XMS_ITS ---
Author Organization [facility] Address [address] [place] [address] Care Team Providers Care Gaming Table Operator Name Role Phone Unavailable Unavailable Unavailable Surgery Details Not on file Complications Check Surgery Details section. Procedure Estimated Blood Loss Check Surgery Details section. Procedure Findings Check Surgery Details section. Procedure Specimens Taken Check Surgery Details section.
--- OUTSIDE RECORDS SUMMARY | 2024-05-02 10:26 | XMS_ITS | Referral Summary ---
Author Organization 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. For routine questions regarding patient records, call [phone] during business hours, M-F 8:00 AM - 5:00 PM Central Time. Record requests for emergency care only can be directed to [phone] at any time.[facility] Encounters Date Type Department Care Team Description 02/21/2024 10:30 AM CDT Office Visit Division of Rheumatology in [address] [phone] Vera Fernandez APRN, C.N.P., M.S. Aneurysm Aortic Without Rupture (HCC); Vasculitis (HCC) 02/21/2024 9:39 AM CDT - 02/21/2024 11:59 PM CDT Hospital Encounter Department of Laboratory Medicine and Pathology, [facility], in [address] [phone] Vera Fernandez APRN, C.N.P., M.S. Aneurysm Aortic Without Rupture (HCC); Vasculitis (HCC) Discharge Disposition: Home or Self Care 02/19/2024 8:30 AM CDT Clinical Communication Virtual Review in [address] [phone] Pre-visit Intake from Last 3 Months Allergies Active Allergy Reactions Criticality Noted Date [...] Active UNABLE TO FIND Take by mouth. 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 Never 12/18/2021 Do you belong to any clubs o r organizations such as sikh groups, unions, fraternal or athletic groups, or [...] care, and heating? Not very hard 02/12/2023 [facility] [place] of Occupat ional Health - Occupational Stress [...] your living situation today? I have a [facility] place to live 02/14/2024 Education Answer [...] 02/21/2024 10:14 AM CDT Plan of Treatment Not on file Medical Devices Implanted Type Area Licensed Real Estate Broker Device Identifier Shelf Expiration Date Model / Serial / Lot Cardiac Valve Prosthesis-03/03 Implanted:03/03 (Quantity not on file) Cardiac Valve Prosthesis Mitral Valve Manning [id number] / [id number] / Hardware E.G. Pins/Screws/Jann s Hardware e.g. [...] GLUCOSE, FASTING, S/P Routine 09/12/2012 8:[address] ABDOMEN WITH IV CONTRAST Routine 05/08/2001 10:08 AM CDT from Last 3 Months or Most Recently Relevant to Health Maintenance Results * Sedimentation Rate (02/21/2024 10:00 AM CDT) Sedimentation Rate, B 5 3 - 28 mm/h 02/21/2024 11:58 AM CDT DTL Blood (Blood, Venous) 02/21/2024 10:00 AM CDT 02/21/2024 10:17 AM CDT Vera Fernandez APRN, C.N.P., M.S. LAB BLOOD ADD-ON [facility] [address] [place] [address], [facility] DTL [facility] [address] [place] [address] * (ABNORMAL) CBC with Differential, Blood (02/21/2024 [...] 10:00 AM CDT 02/21/2024 10:17 AM CDT Teetee Sahu APRN.N.Vincent., M.S. LAB BLOOD ADD-ON [facility] [address] [place], [place] [id number] [place] [address] 200 [place] [address] * CRP (C-Reactive Protein) (02/21/2024 10:00 AM CDT) C-Reactive Protein (CRP), S <3.0 <5.0 mg/L 02/21/2024 11:01 AM CDT DTL Blood (Blood, Venous) 02/21/2024 10:00 AM CDT 02/21/2024 10:38 AM CDT Teetee Sahu APRN.N.P., M.S. LAB BLOOD ADD-ON Performing Organization Address City/[facility]/ZIP Co de Phone Number [facility] [address] [place], [place] [id number] [place] [address] [facility] [address] [place] [address] * AST (Aspartate Aminotransferase) (02/21/2024 10:00 AM CDT) Aspartate Aminotransferase (AST), S 29 8 - 48 U/L 02/21/2024 11:01 AM CDT DTL Blood (Blood, Venous) 02/21/2024 10:00 AM CDT 02/21/2024 10:38 AM CDT Vera Fernandez APRN, C.N.P., M.S. LAB BLOOD ADD-ON [facility] [address] [place] [address] * Creatinine with Estimated GFR (02/21/2024 10:00 AM CDT) Creatinine 0.92 0.74 - 1.35 mg/dL 02/21/2024 11:01 AM CDT DTL Estimated GFR (eGFR) 88 >=60 mL/min/BSA 02/21/2024 11:01 AM CDT DT Comment: Estimated GFR calculated using the 2020 CKD_EPI creatinine equation. Blood (Blood, Venous) 02/21/2024 10:00 AM CDT 02/21/2024 10:38 AM CDT Vera Fernandez APRN, C.N.P., M.S. LAB BLOOD ADD-ON Performing Organization Address City/[facility]/ZIP Co de Phone Number [facility] [address] 200 [place] [address] * Glucose, Fasting (09/12/2012 8:06 AM COMPOSITION MIXER) Last Intake 13 HR [facility] [place] Glucose, P 96 70 - 100 MG/DL [facility] 09/12/2012 8:06 AM COMPOSITION MIXER 09/12/2012 8:06 AM COMPOSITION MIXER Vera Fernandez APRN, C.N.P., M.S. LAB BLOOD NON ADD-ON [facility] [address] * CT Abdomen with IV Contrast (05/08/2001 10:08 AM CDT) Anatomical Region Laterality Modality Abdomen N/A Computed Tomogra phy 05/08/2001 10:0 8 AM CDT Narrative 05/08/2001 12:28 PM CDT 08-May-2001 10:08:00 ??Exam: CT ABDOMEN w Indications: TH/ABD - ANEURYSM, OLD CHANGES^OF ASCENDING & DESCENDING AORT ORIGINAL REPORT - 08-May-2001 12:28:00 ([id number], [id number]) ??Scan of the entire aorta was carried [...] DESCENDING AORT ORIGINAL REPORT - 08-May-2001 12:28:00 ([id number], [id number]) Scan of the entire aorta was carried [...] MD. [id number] 08-May-2001 12:28 Ruddy Torres M.D. IMG CT PROCEDURE S from Last 3 Months or Most Recently Relevant to Health Maintenance
--- OUTSIDE RECORDS SUMMARY | 2024-05-02 10:26 | XMS_ITS | Encounter Summary ---
Author Organization [facility] Address [address] [place] [address] Care Team Providers Care Placement Interviewer Name Role Phone Unavailable Primary Care Provider Unavailabl e Encounter Details Date Type Department Care Team (Latest Contact Info) Description 02/21/2024 9:39 AM CDT - 02/21/2024 11:59 PM CDT Hospital Encounter Department of Laboratory Medicine and Pathology, [place], [place] [address] [place] [phone] Vera Fernandez, SHANE, C.N.P., M.S. [address] [place] [phone] Aneurysm Aortic Without Rupture (HCC); Vasculitis (HCC) Discharge Disposition: Home or Self Care Social History Tobacco Use Types Packs/Day Years Used Date Smoking Tobacco: Never Smokeless Tobacco: Never Alcohol Use Standard Drinks/Week Comments Yes 3 (1 standard drink = 0.6 oz pur e alcohol) [facility] Utilities Answer Date Recorded In the past 12 months has e electric, gas, oil, or water [employer] threatened to shut off services in your [...] How often do you attend chur or pentecostal services? Never 12/18/2021 Do you belong to any clubs o r organizations such as zoroastrianism groups, unions, fraternal or athletic groups, or [...] care, and heating? Not very hard 02/12/2023 [facility] of Occupat ional Health - Occupational Stress [...] your living situation today? I have a [facility] place to live 02/14/2024 Education Answer [...] Orientation Straight 11/28/2018 12 :14 PM CDT documented as of this encounter Medications at Time of Discharge Medication Sig Dispensed Refills Start Date End Date acetaminophen (TYLENOL) 500 mg tablet Take 500 mg by mouth every 6 (six) hours as needed for pain. aspirin [address] tablet Take 81 mg by mouth daily. Every other day levothyroxine (SYNTHROID, LEVOTHROID) 137 mcg tablet Take 137 mcg by mouth every morning before breakfast. 0 10/17/2018 methocarbamoL (Robaxin) 500 mg tablet Take 500 mg by mouth daily as needed. 01/29/2022 metoprolol tartrate (Lopressor) 25 mg tablet Take 25 mg by mouth daily. 01/12/2022 naproxen sodium 220 mg capsule Take 220 mg by mouth as needed. niacin 500 mg ER capsule Take 500 mg by mouth at bedtime. oxyCODONE (ROXICODONE) 5 mg immediate release tablet Take 5 mg by mouth as needed for pain. 02/08/2023 Senexon-S 8.6-50 mg per tablet Take by mouth as needed. 02/08/2023 sildenafiL (Viagra) 100 mg tablet 20 mg 03/08/2020 UNABLE TO FIND Take by mouth. Erqoupg-Lykml-Xtua-Won ssF-LBalm (MELATONIN + L-THEANINE) CAPS azithromycin (ZITHROMAX) 500 mg tablet Take 500 mg by mouth as needed. 01/23/2023 02/24/2024 documented as of this encounter Plan of Treatment Not on file documented as of this encounter Procedures Procedure Name Priority Date/Time Associated Diagnosis Comments SEDIMENTATION RATE, B Routine 02/21/2024 10:00 AM CDT Aneurysm Aortic Without Rupture (HCC) Vasculitis (HCC) CBC WITH DIFFERENTIAL, B Routine 024 10:00 AM CDT Aneurysm Aortic Without Rupture (HCC) Vasculitis (HCC) C-REACTIVE PROTEIN (CRP), S/P Routine 02/21/2024 10:00 AM CDT Aneurysm Aortic Without Rupture (HCC) Vasculitis (HCC) ASPARTATE AMINOTRANSFERASE (AST), S/P Routine 02/21/2024 10:00 AM CDT Aneurysm Aortic Without Rupture (HCC) Vasculitis (HCC) CREATININE WITH EGFR, S/P Routine 02/21/2024 10:00 AM CDT 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 Results * AST (Aspartate Aminotransferase) (02/21/2024 10:00 AM CDT) Aspartate Aminotransferase (AST), S 29 8 - 48 U/L 02/21/2024 11:01 AM CDT DTL Blood (Blood, Venous) 02/21/2024 10:00 AM CDT 02/21/2024 10:38 AM CDT Vera Fernandez APRN, C.N.P., M.S. LAB BLOOD ADD-ON [facility] [address] [place], [place] [phone] [place] [address] [facility] [address] [place] [address] * Creatinine with Estimated GFR (02/21/2024 10:00 AM CDT) Creatinine 0.92 0.74 - 1.35 mg/dL 02/21/2024 11:01 AM CDT DTL Estimated GFR (eGFR) 88 >=60 mL/min/BSA 02/21/2024 11:01 AM CDT DTL Comment: Estimated GFR calculated using the 2020 CKD_EPI creatinine equation. Blood (Blood, Venous) 02/21/2024 10:00 AM CDT 02/21/2024 10:38 AM CDT Vera Fernandez APRN, C.N.P., M.S. LAB BLOOD ADD-ON [facility] [address] [place], [place] [phone] [place] [address] 200 [place] [address] * CRP (C-Reactive Protein) (02/21/2024 10:00 AM CDT) C-Reactive Protein (CRP), S <3.0 <5.0 mg/L 02/21/2024 11:01 AM CDT DTL Blood (Blood, Venous) 02/21/2024 10:00 AM CDT 02/21/2024 10:38 AM CDT Lopez Sahu APRNNMarcos., M.S. LAB BLOOD ADD-ON [facility] [address] [place], [place] [id number] [place] [address] [facility] 200 [place] [address] * Sedimentation Rate (02/21/2024 10:00 AM CDT) Pathologist [facility] Sedimentation Rate, B 5 3 - 28 mm/h 02/21/2024 11:58 AM CDT DTL Blood (Blood, Venous) 02/21/2024 10:00 AM CDT 02/21/2024 10:17 AM CDT Vera Fernandez APRN, C.N.P., M.S. LAB BLOOD ADD-ON [facility] 200 [place] [address], [facility] [place] [address] * (ABNORMAL) CBC with Differential, Blood (02/21/2024 10:00 AM CDT) [facility] [address] Hemoglobin 13.5 13.2 - 16.6 g/dL 02/21/2024 [...] Fernandez APRN, C.N.P., M.S. LAB BLOOD ADD-ON [facility] [address] [place] [address], [facility] DTL [facility] [address] [place] [address] [facility] [address] [place] [address] documented in this encounter Visit Diagnoses Diagnosis 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
--- OUTSIDE RECORDS SUMMARY | 2024-05-02 10:26 | XMS_ITS | Referral Summary ---
Author Organization [place] Address [address] [place] [address]. [place] [address] Care Team Providers Care Sql Server Architect Name Role Phone Little Birch MD Unavailable [phone] No Ref-Primary, Physician Primary Care Provider Mich Yanes MD Unavailable Encounters Date Type Department Care Team Description 04/29/2024 Telephone [facility] [address] [facility] [address] [place] [address] Little Birch MD Call Back (Chest cold- wondering if Cardioversion should be delayed) 04/29/2024 Telephone [facility] [address] [facility] [address] [place] [address] Lisa Odom RN Clinic Care Coordination - Follow-up (Pre-cardioversion call to patient) 2024 Travel 04/26/2024 12:45 PM CDT Office Visit [facility] [address] [place] [address] [address] [place] [address] Little Birch MD Persistent atrial fibrillation (H) (Primary Dx); History of mitral valve repair 04/25/2024 Travel 04/25/2024 9:23 AM CDT - 04/25/2024 11:59 PM CDT Hospital Encounter [facility] [address] [facility] [address] [place] [phone] Little Birch MD History of mitral valve repair; Persistent atrial fibrillation (H) Discharge Disposition: Home or Self Care 04/22/2024 Travel 03/27/2024 Travel 03/27/2024 3:45 PM CDT Office Visit [facility] [place] [address] [facility] [address] [place] [phone] Little Birch MD History of mitral valve repair (Primary Dx); Persistent atrial fibrillation (H) from Last 3 Months Allergies Active Allergy Reactions Criticality Noted Date Comments Amoxicillin 07/14/2013 Penicillins 07/14/2013 Medications Medication Sig Dispensed Refills Start Date End Date Status levothyroxine (SYNTHROID/LEVOTHRO ID) 137 MCG tablet Take 137 mcg by mouth every morning Active diphenhydrAMINE (BENADRYL) 25 MG capsule Take 25 mg by mouth at bedtime. 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 Prostate cancer 06/21/2021 Acquired hypothyroidism 06/21/2021 S/P MVR (mitral valve repair )-[place]-Ambrosio NeoChords on flail P2 segment, 34 mm Velasquez Physio ring 03/08/2021 Fluid overload 03/08/2021 Transient hyperglycemia post procedure Mitral prolapse 02/09/2021 Overview: Added automatically from request for surgery [id number] Status post coronary angiogram 02/04/2021 Nonrheumatic mitral valve regurgitation 01/26/20 21 Overview: Added automatically from request for surgery [id number] Coronary artery disease invo lving [place] coronary artery of [place] heart without angina pectoris 01/25/2021 Overview: Added automatically from request for surgery [id number] Immunizations Name Administration Dates Next Due Flu 65+ (Fluad) 04/23/2019 Influenza Vaccine 65+ (Fluzone HD) 06/01/2021, Pneumo Conj 13-V (2010&after) 10/31/2017, 017 Pneumococcal 23 valent 12/27/2018,07/29/2010 TDAP Vaccine (Boostrix) 12/21/2020,09/06/2013 Zoster recombinant adjuvanted (SHINGRIX) 019,06/19/2018 Zoster vaccine, live 02/25/2015 Social History Tobacco Use Types Packs/Day Years Used Date Smoking Tobacco: Never Smokeless Tobacco: Never Tobacco Cessation:Counseling Given: Not Answered Alcohol Use Standard Drinks/Week Comments Yes 0 (1 standard drink = 0.6 oz pur e alcohol) glass of wine daily PHQ-2 Answer Date Recorded PHQ-2 Score 0 03/27/2024 Adolescent Education Answer Date Record ed Getting School Help Needed Not on file 05/13 Sex and Gender Information Value Date Recorded Sex Assigned at Male 05/01/2021 11:53 PM CDT Gender Identity Male 05/01/2021 11:53 PM CDT Sexual Orientation Straight 05/01/2021 11 :53 PM CDT Last Filed Vital Signs Vital Sign Reading Time Taken Comments Blood Pressure 150/92 04/26/2024 12:43 PM CDT Pulse 90 04/26/2024 12:43 PM CDT Temperature 36.9 ??C (98.4 ??F) 06/21/2021 2:01 PM CS T Respiratory Rate 18 03/07/2021 7:40 AM CDT Oxygen Saturation 100% 04/26/2024 12:43 PM CDT Inhaled Oxygen Concentration - - Weight 79.4 kg (175 lb) 04/26/2024 12:43 PM CDT Height 179.1 cm (5' 10.5) 04/26/2024 12:43 PM C DT Body Mass Index 24.75 04/26/2024 12:43 PM CDT Plan of Treatment Upcoming Encounters Date Type Department Care Team (Late st Contact Info) Description 05/14/2024 8:30 AM CDT Appointment [facility] [address] [phone] Little Birch MD [address] [place] [address] 06/26/2024 12:40 PM MACHINE RIGGER Office Visit [facility] [place] [address] [facility] [address] [place] [phone] Khadra Poe APRN CNP [address] [place] [id number] Medical Devices Implanted Type Area Steward/Stewardess Deck Device Identifier Shelf Expiration Date Model / Serial / Lot Annuloplasty Ring Terri Velasquez Physio Ii 24mm [id number] - [id number] Implanted:Qty: 1 on 03/03/2021 by Merlin Rouse MD at [facility] Annuloplasty Ring N/A: Heart [employer] 11/17/2025 [id number] / [id number] / Imp Kit Suture Cor-Knot Mini 4x14mm [id number] - [id number] Implanted:Qty: 1 on 03/03/2021 by Merlin Rouse MD at [facility] Metallic Hardware/Ancho r N/A: Chest [employer] 02/10/2023 [id number] / / [id number] Device Villalta Endo Cor Knot Quick Load [id number] - [id number] Implanted:Qty: 1 on 03/03/2021 by Merlin Rouse MD at [facility] Wire N/A: Chest [employer] [id number] 11/11/2022 [id number] / / [id number] Device Villalta Endo Cor Knot Quick Load [id number] - [id number] Implanted:Qty: 1 on 03/03/2021 by Merlin Rouse MD at [facility] Wire N/A: Chest [employer] [id number] 05/13/2022 [id number] / / [id number] Procedures Procedure Name Priority Date/Time Associated Diagnosis Comments ECHO COMPLETE Routine 04/25/2024 10:09 AM CDT History of mitral valve repair Persistent atrial fibrillation (H) EKG 12-LEAD COMPLETE W/READ - CLINICS Routine 03/27/2024 History of mitral valve repair BASIC METABOLIC PANEL Add-On 03/07/2021 7:22 AM CDT TSH WITH FREE T4 REFLEX Routine 01/12/2021 10:53 PM CDT from Last 3 Months or Most Recently Relevant to Health Maintenance Results * ECHO COMPLETE (04/25/2024 10:09 AM CDT) LVEF 60-65% CARDIOLOGY RESULTS Anatomical Region Laterality Modality Echocardiography 04/25/2024 8:51 AM CDT Narrative 04/25/2024 11:25 AM CDT [id number]^KASEY^LITTLE^TONY DONIS [facility] Echocardiography Laboratory [address] [place] [address] Name: DEVIN DESAI : 1950 Study Date: 04/25/2024 08:51 AM Age: 73 yrs Gender: Male Patient Location: [facility] Reason For Study: History of mitral valve repair, Persistent atrial fibrillation ( Ordering Physician: LITTLE BIRCH Referring Physician: No Ref-Primary, Physician Performed By: Lidia Ruiz RDCS BSA: 2.0 m2 Height: 70 in Weight: 177 lb HR: 80 BP: 115/80 mmHg Procedure Complete Echo Adult. 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 There is no mitral valve stenosis. The visual ejection fraction is 60-65%. The left atrium is mildly dilated. Compared to prior study, there is no significant change. Left Ventricle The left ventricle is normal in structure, function and size. The visual ejection fraction is 60-65%. Diastolic function not assessed due to presence of prosthetic mitral valve. Right Ventricle The right ventricle is normal in structure, function and size. Atria The left atrium is mildly dilated. Right atrial size is normal. Mitral Valve There is trace mitral regurgitation. There is no mitral valve stenosis. An annuloplasty ring is noted in the mitral position. Tricuspid Valve Normal tricuspid valve. There is mild (1+) tricuspid regurgitation. Right ventricular systolic pressure is normal. Aortic Valve The aortic valve is normal in structure and function. Pulmonic Valve Normal pulmonic valve. Vessels The aortic root is normal size. Ascending aorta aneurysm is present. The inferior vena cava is normal. Pericardium There is no pericardial effusion. MMode/2D Measurements & Calculations IVSd: 1.0 cm LVIDd: 4.2 cm LVIDs: 3.0 cm LVPWd: 1.1 cm IVC diam: 1.6 cm FS: 27.2 % LV mass(C)d: 148.3 grams LV mass(C)dI: 74.9 grams/m2 Ao root diam: 3.9 cm LA dimension: 3.8 cm asc Aorta Diam: 4.8 cm LA/Ao: 0.97 LVOT diam: 2.5 cm LVOT area: 4.7 cm2 Ao root diam index Ht(cm/m): 2.2 Ao root diam index BSA (cm/m2): 2.0 Asc Ao diam index BSA (cm/m2): 2.4 Asc Ao diam index Ht(cm/m): 2.7 LA Volume Index (BP): 36.1 ml/m2 RWT: 0.54 Doppler Measurements & Calculations MV E max juan: 122.7 cm/sec MV A max juan: 83.1 cm/sec MV E/A: 1.5 MV max P.2 mmHg MV mean P.4 mmHg MV V2 VTI: 43.9 cm MV dec slope: 409.1 cm/sec2 MV dec time: 0.30 sec PA acc time: 0.10 sec TR max juan: 272.5 cm/sec TR max P.7 mmHg E/E': 8.7 Peak E' Juan: 14.2 cm/sec Report approved by: Ulises Villagomez 04/25/2024 11:25 AM Procedure Note Little Birch MD - 04/25/2024 [id number]^KASEY^LITTLE^TONY DONIS [facility] Echocardiography Laboratory [address] [place] [address] Name: DEVIN DESAI : 1950 Study Date: 04/25/2024 08:51 AM Age: 73 yrs Gender: Male Patient Location: [facility] Reason For Study: History of mitral valve repair, Persistent atrial fibrillation ( Ordering Physician: LITTLE BIRCH Referring Physician: Zaida Ref-Primary, Physician Performed By: Lidia Ruiz RDCS BSA: 2.0 m2 Height: 70 in Weight: 177 lb HR: 80 BP: 115/80 mmHg Procedure Complete Echo Adult. 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 There is no mitral valve stenosis. The visual ejection fraction is 60-65%. The left atrium is mildly dilated. Compared to prior study, there is no significant change. Left Ventricle The left ventricle is normal in structure, function and size. The visual ejection fraction is 60-65%. Diastolic function not assessed due topresence of prosthetic mitral valve. Right Ventricle The right ventricle is normal in structure, function and size. Atria The left atrium is mildly dilated. Right atrial size is normal. Mitral Valve There is trace mitral regurgitation. There is no mitral valve stenosis.An annuloplasty ring is noted in the mitral position. Tricuspid Valve Normal tricuspid valve. There is mild (1+) tricuspid regurgitation.Right ventricular systolic pressure is normal. Aortic Valve The aortic valve is normal in structure and function. Pulmonic Valve Normal pulmonic valve. Vessels The aortic root is normal size. Ascending aorta aneurysm is present. The inferior vena cava is normal. Pericardium There is no pericardial effusion. MMode/2D Measurements & Calculations IVSd: 1.0 cm LVIDd: 4.2 cm LVIDs: 3.0 cm LVPWd: 1.1 cm IVC diam: 1.6 cm FS: 27.2 % LV mass(C)d: 148.3 grams LV mass(C)dI: 74.9 grams/m2 Ao root diam: 3.9 cm LA dimension: 3.8 cm asc Aorta Diam: 4.8 cm LA/Ao: 0.97 LVOT diam: 2.5 cm LVOT area: 4.7 cm2 Ao root diam index Ht(cm/m): 2.2 Ao root diam index BSA (cm/m2): 2.0 Asc Ao diam index BSA (cm/m2): 2.4 Asc Ao diam index Ht(cm/m): 2.7 LA Volume Index (BP): 36.1 ml/m2 RWT: 0.54 Doppler Measurements & Calculations MV E max juan: 122.7 cm/sec MV A max juan: 83.1 cm/sec MV E/A: 1.5 MV max P.2 mmHg MV mean P.4 mmHg MV V2 VTI: 43.9 cm MV dec slope: 409.1 cm/sec2 MV dec time: 0.30 sec PA acc time: 0.10 sec TR max juan: 272.5 cm/sec TR max P.7 mmHg E/E': 8.7 Peak E' Juan: 14.2 cm/sec Report approved by: Ulises Villagomez 04/25/2024 11:25 AM Little Birch MD CV ECHO ORDERABLES * EKG 12-lead complete w/read - Clinics (performed today) (03/27/2024) Little Birch MD ECG ORDERABLES * (ABNORMAL) Basic metabolic panel (03/07/2021 7:22 AM CDT) [facility] Signature Sodium 135 133 - 144 mmol/L 03/07/2021 9:04 AM [facility] Potassium 3.8 3.4 - 5.3 mmol/L 03/07/2021 9:04 AM [facility] Chloride 103 94 - 109 mmol/L 03/07/2021 9:04 AM [facility] Carbon Dioxide (CO2) 26 20 - 32 mmol/L 03/07/2021 9:04 AM [facility] Anion Gap 6 3 - 14 mmol/L 03/07/2021 9:04 AM [facility] Urea Nitrogen 14 7 - 30 mg/dL 03/07/2021 9:04 AM [facility] Creatinine 0.80 0.66 - 1.25 mg/dL 03/07/2021 9:04 AM [facility] Calcium 8.9 8.5 - 10.1 mg/dL 03/07/2021 9:04 AM [facility] Glucose 106(H) 70 - 99 mg/dL 03/07/2021 9:04 AM [facility] GFR Estimate >90 >60 mL/min/1.7 3m2 03/07/2021 9:04 AM [facility] Comment:As of February 21, 2021, eGFR is calculated by the CKD-EPI creatinine equation, without race adjustment. eGFR can be influenced by muscle mass, exercise, and diet. The reported eGFR is an estimation only and is only applicable if the renal function is stable. Blood STRUCTURE OF LEFT UPPER LIMB / Unknown Venipuncture / Unknown 03/07/2021 7:22 AM CDT 03/07/2021 7:43 AM CDT Bisi Jerry PA-C LAB - BLOOD ORDER [facility] [address], [address] [place] [address], [facility] [phone] * TSH with free T4 reflex (01/12/2021 10:53 PM CDT) TSH 1.35 0.40 - 4.00 mU/L 01/13/2021 12:00 AM CDT [facility] 01/12/2021 10:5 3 PM CDT 01/12/2021 11:04 PM CDT Harshad Toribio MD LAB - BLOOD ORDERABL ES [facility] [address] [place] [address], [facility] [phone] from Last 3 Months or Most Recently Relevant to Health Maintenance Advance Directives For more information, please contact: [phone] * Full Code (Latest Code Status on File) Date Activated Date Inactivated Comments 03/03/2021 12:54 PM 03/07/2021 1:15 PM All basic a nd advanced life-sustaining interventions are performed as appropriate Question Answer Comments Code status determined by: Discussion with patie nt/ legal decision maker Care Teams Sql Server Architect Relationship Specialty Start Date End Date No Ref-Primary, Physician PCP - General 06/18/21 Little Birch MD [address] [place], [place] [address] Assigned Heart and Vascular Provider 05/09/21 Mich Yanes MD [address] [place], [place] [address] Assigned PCP 05/27/21
--- OUTSIDE RECORDS SUMMARY | 2024-05-02 10:26 | XMS_ITS ---
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 Prostate cancer 06/21/2021 Acquired hypothyroidism 06/21/2021 S/P MVR (mitral valve repair )-[place]-Ambrosio NeoChords on flail P2 segment, 34 mm Manning Physio ring 03/08/2021 Fluid overload 03/08/2021 Transient hyperglycemia post procedure Mitral prolapse 02/09/2021 Overview: Added automatically from request for surgery [id number] Status post coronary angiogram 02/04/2021 Nonrheumatic mitral valve regurgitation 01/26/20 Overview: Added automatically from request for surgery [id number] Coronary artery disease invo lving [place] coronary artery of [place] heart without angina pectoris 01/25/2021 Overview: Added automatically from request for surgery [id number] Current Oncology Plans No current plan information found. Past Plans No past plan information found. Radiation Treatments * No radiation treatments are documented for this patient in [facility]. Treatments may have been administered in another system. Lifetime Dose Tracking * Chemical Lifetime Dose Automatic Entry Manual Entr y Total Air Kerma 148.09 mGy 0 mGy 148.09 mGy Jeff DAP. 16.9 Gy-cm2 0 Gy-cm2 16.9 Gy-cm2
--- OUTSIDE RECORDS SUMMARY | 2024-05-02 10:26 | XMS_ITS | Encounter Summary ---
Author Organization [place] Address [facility] [place] [address] Care Team Providers Care Geological Scout Name Role Phone Ip, Teodoro Velazquez MD Unavailable [phone] No Ref-Primary, Physician Primary Care Provider Mich Yanes MD Unavailable [phone] Encounter Details Date Type Department Care Team (Latest Contact Info) Description 2024 Travel Social History Tobacco Use Types Packs/Day Years Used Date Smoking Tobacco: Never Smokeless Tobacco: Never Alcohol Use Standard Drinks/Week Comments Yes 0 [...] Orientation Straight 05/01/2021 11 :53 PM CDT documented as of this encounter Plan of Treatment Upcoming Encounters Date Type Department Care Team (Late st Contact Info) Description 05/14/2024 8:30 AM CDT Appointment [facility] [address] [phone] Ip, Teodoro Velazquez MD [address] [place] [address] 06/26/2024 12:40 PM FUR TINTER Office Visit [facility] [address] [facility] [address] [place] [phone] Khadra Poe APRN CNP [address] [place] [address] documented as of this encounter Visit Diagnoses Not on filedocumented in this encounter Care Teams Geological Scout Relationship Specialty Start Date End Date No Ref-Primary, Physician PCP - General 06/18/21 Ip, Teodoro Velazquez MD [address] [place] [address] Assigned Heart and Vascular Provider 05/09/21 Mich Yanes MD [address] [place] [address] Assigned PCP 05/27/21 documented as of this encounter
--- OUTSIDE RECORDS SUMMARY | 2024-05-02 10:26 | XMS_ITS | Encounter Summary ---
Author Organization [place] Address [facility] [place] [address] Care Team Providers Care Senior Firewall Engineer Name Role Phone Ip, Teodoro Velazquez MD Unavailable [phone] No Ref-Primary, Physician Primary Care Provider Mich Yanes MD Unavailable [phone] Reason for Visit * Reason Onset Date Comments Call Back 04/29/2024 Chest cold- wond ering if Cardioversion should be delayed Encounter Details Date Type Department Care Team (Late st Contact Info) Description 04/29/2024 Telephone [facility] [address] [place] [address] [address] [place] [address] Ip, Teodoro Velazquez MD [address] [facility] [address] [place], [place] [address] Call Back (Chest cold- wondering if Cardioversion should be delayed) Social History Tobacco Use Types Packs/Day Years [...] PM CDT documented as of this encounter Miscellaneous Notes * Telephone Encounter - Burak Imelda - 04/29/2024 12:43 PM CDT [facility] Phone Message May a detailed message be left on voicemail: yes Reason for Call: Other: Patient called to reschedule his cardioversion on 05/01. Patient said that he was told that he shouldn't go under the anesthesia since he is currently sick. Please call patientback to reschedule the appointment. Thank you! Action Taken: Other: Cardiology Travel Screening: Not Applicable Thank you! [facility] * Telephone Encounter - Lisa Odom RN - 04/29/2024 12:36 PM CDT Sweep Molder called again and spoke with Devin. He verbalized understanding and agreement with Dr. Justice for postponing the cardioversion for a couple weeks, just to be sure the cold\virus\infection gets out ofhis system. We also discussed rescheduling the follow up apmnt, since Dr. Birch's note says 6 - 8 weeks after the procedure. Devin verbalized understanding and will call scheduling to get these appointments rescheduled. Lisa Odom RN on 04/29/2024 at 12:38 PM * Telephone Encounter - Lisa Odom RN - 04/29/2024 11:46 AM CDT Sweep Molder spoke with patient earlier today. He states he has been feeling off for several days, frequent cough, test for CoVid is negative. Chest cold, productive cough of yellow phlegm, worse at night. Not improving. Now it seems to be moving up into my head. Should I reschedule the cardioversion? Sending to Dr. Justice for recommendation. Informed Devin that I will call him back by the end of today with response. Lisa Odom RN on 04/29/2024 at 11:50 AM * Telephone Encounter - Gabriela Mcqueen - 04/29/2024 10:59 AM CDT [facility] Phone Message May a detailed message be left on voicemail: no Reason for Call: Pt stated he has Cardioversion scheduled 05/01/24, but he has lingering chest cold symptoms. Pt is wondering if this should be delayed due to going under anesthesia. Please review andcall pt to discuss. Action Taken: Other: cardio Travel Screening: Not Applicable Date of Service: documented in this encounter Plan of Treatment Upcoming Encounters Date Type Department Care Team (Late st Contact Info) Description 05/14/2024 8:30 AM CDT Appointment [facility] [address] [phone] Teodoro Birch MD [address] [place] [id number] 06/26/2024 12:40 PM POULTRY TRIMMER Office Visit [facility] [place] [address] [facility] [address] [place] [phone] Khadra Poe APRN CNP [address] [place] [phone] documented as of this encounter Visit Diagnoses Not on filedocumented in this encounter Care Teams Senior Firewall Engineer Relationship Specialty Start Date End Date No Ref-Primary, Physician PCP - General 06/18/21 Teodoro Birch MD [address] [place] [id number] Assigned Heart and Vascular Provider 05/09/21 Mich Yanes MD [address] [place], [place] [phone] Assigned PCP 05/27/21 documented as of this encounter
--- OUTSIDE RECORDS SUMMARY | 2024-05-02 10:26 | XMS_ITS | Clinical Summary ---
Author Organization [place] Address [address] [place] [address] Care Team Providers Care Powertrain Calibration Engineer Name Role Phone Ip, Little Velazquez MD Unavailable [phone] No Ref-Primary, Physician Primary Care Provider Mich Yanes MD Unavailable [phone] Allergies Active Allergy Reactions Criticality Noted Date Comments Amoxicillin 07/14/2013 Penicillins 07/14/2013 Medications Medication Sig Dispensed Refills Start Date End Date Status levothyroxine (SYNTHROID/LEVOTHRO ID) 137 MCG tablet Take 137 mcg by mouth every morning Active diphenhydrAMINE (BENADRYL) 25 MG capsule Take 25 mg by mouth at bedtime. 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 01/25/2021 Overview: Added automatically from request for surgery [id number] Encounters Date Type Department Care Team Description 04/29/2024 Telephone [facility] [address] [facility] [address] [place] [phone] Little Birch MD Call Back (Chest cold- wondering if Cardioversion should be delayed) 04/29/2024 Telephone [facility] [address] [facility] [address] [place] [phone] Lisa Odom RN Clinic Care Coordination - Follow-up (Pre-cardioversion call to patient) 2024 Travel 04/26/2024 12:45 PM CDT Office Visit [facility] [id number] [place] [address] [address] [place] [phone] Little Birch MD Persistent atrial fibrillation (H) (Primary Dx); History of mitral valve repair 04/25/2024 9:23 AM CDT - 04/25/2024 11:59 PM CDT Hospital Encounter [facility] [id number] [place] [address] [address] [place] [address] Little Birch MD History of mitral valve repair; Persistent atrial fibrillation (H) Discharge Disposition: Home or Self Care 04/25/2024 Travel 04/22/2024 Travel 03/27/2024 3:45 PM CDT Office Visit [facility] [place] [phone] [facility] [address] [place] [address] Little Birch MD History of mitral valve repair (Primary Dx); Persistent atrial fibrillation (H) 03/27/2024 Travel from Last 3 Months Immunizations Name Administration Dates Next Due Flu 65+ (Fluad) 04/23/2019 Influenza Vaccine 65+ (Fluzone HD) 06/01/2021, Pneumo Conj 13-V (2010&after) 10/31/2017, 017 Pneumococcal 23 valent 12/27/2018,07/29/2010 TDAP Vaccine (Boostrix) 12/21/2020,09/06/2013 Zoster recombinant adjuvanted (SHINGRIX) 019,06/19/2018 Zoster vaccine, live 02/25/2015 Family History Medical History Relation Comments Colon Cancer Brother Angina Father Colon Cancer Father Coronary Artery Disease Father Relation Status Comments Brother Father Mother Social History Tobacco Use Types Packs/Day Years [...] Info) Description 05/14/2024 8:30 AM CDT Appointment [facility] [address] [phone] Little Birch MD [address] [place] [id number] 06/26/2024 12:40 PM MARKETING CONTENT SPECIALIST Office Visit M [facility] [address] [facility] [address] [place] [phone] Khadra Poe APRN SAFETY INSTRUCTOR [address] [place] [id number] Health Maintenance Due Date Last Done Comments ADVANCE CARE PLANNING 1950 ANNUAL REVIEW OF HM ORDERS [address] COLONOGRAPHY 1950 FIT 1950 FLEX SIG 1950 sDNA (Cologuard) 1950 COLONOSCOPY 1961 COLORECTAL CANCER SCREENING 1961 HEPATITIS C SCREENING 1969 LIPID 1991 RSV VACCINE (1 - Risk 60-74 years 1-dose series) 2011 MEDICARE ANNUAL WELLNESS VISIT 2016 06/22/1998, 01/20/1997 TSH W/FREE T4 REFLEX 01/12/2022 01/12/2021 FALL RISK ASSESSMENT 06/21/2022 06/21/2021 GLUCOSE 03/07/2024 03/07/2021, 02/12, 03/06/2021, Additional history exists COVID-19 Vaccine ( - season) 2024 05/19/2023, 05/11/2021 INFLUENZA VACCINE (#1) 2024 , 05/18/2022, 06/01/2021, Additional history exists DTAP/TDAP/TD IMMUNIZATION (3 - Td or Tdap) 12/21/2030 12/21/2020, 09/06/2013, 01/05/2006, Additional history exists ZOSTER IMMUNIZATION Completed 12/09/2018, 06/19/2018, 02/25/2015 Pneumococcal Vaccine: 65+ Years Completed 12/27/2018, 10/31/2017, 01/31/2017, Additional history exists PHQ-2 (once per calendar year) Completed 03/27/2024, 06/21/2021 HPV IMMUNIZATION Aged Out No longer e ligible based on patient's age to complete this topic MENINGITIS IMMUNIZATION Aged Out No l onger eligible based on patient's age to complete this topic RSV MONOCLONAL ANTIBODY Aged Out No l onger eligible based on patient's age to complete this topic Medical Devices Implanted Type Area Apple Peeler Operator Device Identifier Shelf Expiration Date Model / Serial / Lot Annuloplasty Ring Terri Velasquez Physio Ii 24mm [id number] - [id number] Implanted:Qty: 1 on 03/03/2021 by Merlin Rouse MD at [facility] Annuloplasty Ring N/A: Heart [employer] 11/17/2025 [id number] / [id number] / Imp Kit Suture Cor-Knot Mini 4x14mm [id number] - [id number] Implanted:Qty: 1 on 03/03/2021 by Merlin Rouse MD at [facility] Metallic Hardware/Ancho r N/A: Chest [employer] 02/10/2023 [id number] / / [id number] Device Villalta Endo Cor Knot Quick Load [id number] - [id number] Implanted:Qty: 1 on 03/03/2021 by Merlin Rouse MD at [facility] Wire N/A: Chest [employer] [id number] 11/11/2022 [id number] / / [id number] Device Villalta Endo Cor Knot Quick Load [id number] - [id number] Implanted:Qty: 1 on 03/03/2021 by Merlin Rouse MD at [facility] Wire N/A: Chest [employer] [id number] 05/13/2022 [id number] / / [id number] Procedures Procedure Name Priority Date/Time Associated Diagnosis [...] AM CDT Narrative 04/25/2024 11:25 AM CDT [id number]^KASEY^LITTLE^TONY VELAZQUEZ [facility] E[facility] [address] [place] [address] Name: DEVIN DESAI : 1950 Study Date: 04/25/2024 08:51 AM Age: 73 yrs Gender: Male Patient Location: [facility] Reason For Study: History of mitral [...] Procedure Note Little Birch MD - 04/25/2024 [id number]^KASEY^LITTLE^TONY VELAZQUEZ [facility] [address] [place] [address] Name: DEVIN DESAI : 1950 Study Date: 04/25/2024 08:51 AM Age: 73 yrs Gender: Male Patient Location: [facility] Reason For Study: History of mitral [...] Basic metabolic panel (03/07/2021 7:22 AM CDT) Sodium 135 133 - 144 mmol/L 03/07/2021 9:04 AM CDT LABORATORY Potassium 3.8 3.4 - 5.3 mmol/L 03/07/2021 9:04 AM CDT LABORATORY Chloride 103 94 - 109 mmol/L 03/07/2021 9:04 AM T LABORATORY Carbon Dioxide (CO2) 26 20 - 32 mmol/L 03/07/2021 9:04 AM CDT LABORATORY Anion Gap 6 3 - 14 mmol/L 03/07/2021 9:04 AM T LABORATORY Urea Nitrogen 14 7 - 30 mg/dL 03/07/2021 9:04 AM CDT LABORATORY Creatinine 0.80 0.66 - 1.25 mg/dL 03/07/2021 9:04 AM T LABORATORY Calcium 8.9 8.5 - 10.1 mg/dL 03/07/2021 9:04 AM T LABORATORY Glucose 106(H) 70 - 99 mg/dL 03/07/2021 9:04 AM T LABORATORY GFR Estimate >90 >60 mL/min/1.7 3m2 03/07/2021 9:04 AM [facility]OR[facility] Comment:As of February 21, 2021, [...] Jerry PA-C LAB - BLOOD ORDER [facility] Lab [address] floor, [address] [place] [address], [facility] [phone] * TSH with free T4 reflex (01/12/2021 10:53 PM CDT) TSH 1.35 0.40 - 4.00 mU/L 01/13/2021 12:00 AM CDT [facility] 01/12/2021 10:5 3 PM CDT 01/12/2021 11:04 PM CDT Harshad Toribio MD LAB - BLOOD ORDERABL ES [facility] [address] [place] [address], [facility] [phone] from Last 3 Months or Most Recently Relevant to Health Maintenance Advance Directives For more information, please contact: [phone] * Full Code (Latest Code Status on File) Date Activated Date Inactivated Comments 03/03/2021 12:54 PM 03/07/2021 1:15 PM All basic a nd advanced life-sustaining interventions are performed as appropriate Question Answer Comments Code status determined by: Discussion with shan trujillo/ legal decision maker Care Teams Powertrain Calibration Engineer Relationship Specialty Start Date End Date No Ref-Primary, Physician PCP - General 06/18/21 Little Birch MD [address] [place] [address] Assigned Heart and Vascular Provider 05/09/21 Mich Yanes MD [address] [place] [address] Assigned PCP 05/27/21
--- OUTSIDE RECORDS SUMMARY | 2024-05-02 10:26 | XMS_ITS | Encounter Summary ---
Author Organization [facility] Address [address] [place] [address] Care Team Providers Care Roller Setter Name Role Phone Unavailable Primary Care Provider Unavailabl e Reason for Referral * MRI/CAT/PET Scan (Routine) - Pending Review Specialty Diagnoses / Procedures Referred By Kassyac t Referred To Contact Radiology Diagnoses Vasculitis (HCC) Procedures CT Chest Angiogram with IV Contrast Vera Fernandez APRN, C.NMarcos., M.S. [address] [place] [phone] [facility] Referral ID Status Reason Start Date Expiration Date V isits Requested Visits Authorized [id number] Pending Review 02/24/2024 02/23/2025 1 1 * Outpatient (Routine) - Authorized Specialty Diagnoses / Procedures Referred By Contac t Referred To Contact Rheumatology Vera Fernandez APRN, C.N.Vincent., M.S. 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 [address] [place] [phone] [facility] Referral ID Status Reason Start Date Expiration Date Visits Re quested Visits Authorized [id number] Closed 02/15/2023 02/14/2026 1 1 Encounter Details Date Type Department Care Team (Late st Contact Info) Description 02/21/2024 10:30 AM CDT Office Visit Division of Rheumatology in [place], [place] [address] [place] [phone] Vera Fernandez APRN, C.N.Vincent., M.S. 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 Never 12/18/2021 Do you belong to any clubs o r organizations such as samaritan groups, unions, fraternal or athletic groups, or [...] care, and heating? Not very hard 02/12/2023 [facility] - Occupational Stress [...] your living situation today? I have a [facility] place to live 02/14/2024 Education Answer Date [...] PM CDT documented as of this encounter Last Filed Vital Signs Vital Sign Reading [...] Mass Index 25.37 02/21/2024 10:14 AM CDT documented in this encounter Progress Notes * Vera Fernandez, SHANE, C.N.P., M.S. - 02/21/2024 10:30 AM CDT SUBJECTIVE CHIEF COMPLAINT / REASON FOR VISIT Devin Desai is a 73 y.o. male presenting today as an established patient for follow up of aortitis. 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 He has had stable lab monitoring. Sed rate and C-reactive protein within normal limits. Liver enzymes, creatinine, and EGFR all within normal limits. He He has his history of shoulder separation and frozen shoulder in the past and kidney stones, basal cell carcinoma surveillance, as he has a history of this. he did have prostate cancer was treated with radiation Is doing well with normalised PSA Had mitral valve repair in February 2021. Had left hip replacement in 2022. He denies any typical giant cell arteritis symptoms and does well. No findings of active vasculitis. CT angiogram showed stability in 2022 with no significant change in the caliber of the thoracic or abdominal aortas from the prior study. No evidence of active arteritis. Had cataracts removed doing well Giant Cell Arteritis Associated symptoms: hip pain (right pain has improved 3 days) and joint pain Associated symptoms: no headaches, no scalp tenderness, no tenderness at left temporal artery, no tenderness at right temporal artery, no anterior neck pain, no tongue pain, no jaw pain, no vision loss, no double vision, no blurred vision, no shoulder pain, no shoulder stiffness, no hip stiffness, no joint swelling, no fever, not weight gain, no weight loss, no muscle weakness, no chest pain and no loss of consciousness Previous Reports Reviewed:lab reports and office notes The following portions of the patient's history were reviewed and updated as appropriate: allergies, current medications, and problem list. REVIEW OF SYSTEMS Pertinent positives and negatives as documented in the above history of present illness. Constitutional: - Negative for fever and weight loss. Eyes: - Negative for blurred vision, double vision and sudden loss of vision. Cardiovascular: - Negative for chest pain, pressure or tightness. Musculoskeletal: Positive for pain or stiffness in the joints and hip pain (right pain has improved3 days). - Negative for joint swelling and shoulder pain. Neurological: - Negative for loss of consciousness and headaches. OBJECTIVE PHYSICAL EXAM Physical Exam Vascular Exam General: Alert, oriented, appropriate affect, no apparent distress Skin: No rheumatic rashes. Eyes: Clear conjunctivae and lids. Lymph: No cervical or supraclavicular adenopathy. Heart: Regular rate. No murmurs or rubs. Lungs: Clear to auscultation bilaterally. Vessels: Normal radial and pedal pulses. No edema noted Gait: normal Lab: Lab Results Component Value Date/Time SEDRATE 5 02/21/2024 10:00 AM SEDRATE 58 (H) 02/15/2023 07:40 AM SEDRATE 27 (H) 12/20/2021 11:03 AM SEDRATE 7 01/12/2021 10:53 PM CRP <3.0 02/21/2024 10:00 AM CRP 30.0 (H) 12/20/2021 11:03 AM CRP <2.9 01/12/2021 10:53 PM CRP <3.0 01/24/2020 10:21 AM Lab Results Component Value Date/Time HGB 10.8 (L) 02/15/2023 07:40 AM HGB 13.4 12/20/2021 11:03 AM HGB 10.8 (L) 03/03/2021 11:36 AM HGB 10.4 (L) 03/03/2021 10:50 AM HGB 9.5 (L) 03/03/2021 10:32 AM HGB 13.4 02/04/2021 07:05 AM HGB 13.5 01/12/2021 10:53 PM MCV 101.5 (H) 02/15/2023 07:40 AM MCV 101.0 (H) 12/20/2021 11:03 AM MCV 98 02/04/2021 07:05 AM MCV 101 (H) 01/12/2021 10:53 PM MCV 100.7 (H) 01/24/2020 10:21 AM WBC 8.7 02/15/2023 07:40 AM WBC 11.2 (H) 12/20/2021 11:03 AM WBC 6.2 02/04/2021 07:05 AM WBC 7.8 01/12/2021 10:53 PM WBC 5.9 01/24/2020 10:21 AM PLT 338 (H) 02/15/2023 07:40 AM PLT 247 12/20/2021 11:03 AM PLT 194 02/04/2021 07:05 AM PLT 201 01/12/2021 10:53 PM PLT 200 01/24/2020 10:21 AM Lab Results Component Value Date/Time CREATININE 0.82 02/15/2023 07:40 AM CREATININE 0.86 12/20/2021 11:03 AM CREATININE 0.80 03/07/2021 07:22 AM CREATININE 0.81 03/06/2021 06:10 AM CREATININE 0.77 03/05/2021 07:08 AM CREATININE 0.86 02/04/2021 07:05 AM CREATININE 0.87 01/12/2021 10:53 PM EGFR >90 02/15/2023 07:40 AM 12/20/2021 Tender joint count (0-28) 0 Swollen joint count (0-28) 0 Patient global assessment (0-100) 5 Printed Circuit Board Pcb Designer global assessment (0-100) 5 ESR (mm/h) 27 CRP (mg/L) 30 Disease Activity Score 28 using ESR (NAF35-HSL) 2.38 Disease Activity Score 28 using CRP (JMS38-MRC) 2.27 Clinical Disease Activity Index (CDAI) 1 Simplified Disease Activity Index (SDAI) 4 Jorge Luis Vasculitis Activity Score (BVAS) for Rula's Granulomatosis (WG) Evaluation: Total BVAS/WG score: 0 ASSESSMENT / PLAN #1 Aortitis #2 Vasculitis (HCC) He is currently stable with minimal vasculitis symptoms at time his sed rate and C-reactive proteinare stable I will see him back follow-up in the with CT chest angiogram at that time if he has any recurrent symptoms and I can see him back sooner Patient's questions were answered they verbalized understanding and agreed with plan. documented in this encounter Plan of Treatment Scheduled Orders Name Type Priority Associated Diagnoses Order Schedule CBC with Differential, Blood Lab Routine Vasculitis (HCC) Expected: 01/01/2025, Expires: 05/26/2025 Sedimentation Rate Lab Routine Vasculitis (HCC) Expected: 01/01/2025, Expires: 05/26/2025 CRP (C-Reactive Protein) Lab Routine Vasculitis (HCC) Expected: 01/01/2025, Expires: 05/26/2025 Creatinine with Estimated GFR Lab Routine Vasculitis (HCC) Expected: 01/01/2025, Expires: 05/26/2025 AST (Aspartate Aminotransferase) Lab Routine Vasculitis (HCC) Expected: 01/01/2025, Expires: 05/26/2025 CT Chest Angiogram with IV Contrast Imaging RAD - Routine (most inpatients and all outpatients) Vasculitis (HCC) Expected: 01/01/2025, Expires: 02/23/2025 Scheduled Referrals Name Type Priority Associated Diagnoses Order Schedule Rheumatology office visit (clinic) Outpatient Referral Routine Expected: 01/01/2025, Expires: 05/26/2025 documented as of this encounter Visit Diagnoses Diagnosis 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
--- OUTSIDE RECORDS SUMMARY | 2024-05-02 10:26 | XMS_ITS | Encounter Summary ---
Author Organization [facility] Address [address] [place] [address] Care Team Providers Care Convalescent Sitter Name Role Phone Unavailable Primary Care Provider Unavailabl e Reason for Visit * Reason Onset Date Comments Pre-visit Intake 02/19/2024 Encounter Details Date Type Department Care Team (Latest Contact Info) Description 02/19/2024 8:30 AM CDT Clinical Communication Virtual Review in [place], [place] [address] [place] [phone] Pre-visit Intake Social History Tobacco Use Types Packs/Day Years Used Date Smoking Tobacco: Never Smokeless Tobacco: Never Alcohol Use Standard Drinks/Week Comments Yes 3 (1 standard drink = 0.6 oz pur e alcohol) [facility] Utilities Answer Date Recorded In the past 12 months has e electric, gas, oil, or water [employer] threatened to shut off services in your [...] often do you attend chur ch or rastafarian services? Never 12/18/2021 Do you belong to any clubs o r organizations such as taoist groups, unions, fraternal or athletic groups, or [...] care, and heating? Not very hard 02/12/2023 [facility] Health - Occupational [...]
--- OUTSIDE RECORDS SUMMARY | 2024-05-02 10:26 | XMS_ITS | Encounter Summary ---
Author Organization [place] Address [address] [place] [address]. [place] [address] Care Team Providers Care Child And Family Therapist Name Role Phone Ip, Teodoro Velazquez MD Unavailable [phone] Ref-Primary, Physician Primary Care Provider Mich Yanes MD Unavailable [phone] Reason for Visit * Reason Onset Date Comments Clinic Care Coordination - Follow-up 04/29/2024 Pre-cardioversion call to patient Encounter Details Date Type Department Care Team (Late st Contact Info) Description 04/29/2024 [facility] [address] [place] [address] Lisa Odom, RN Clinic Care Coordination - Follow-up (Pre-cardioversion call to patient) Social History Tobacco Use Types Packs/Day Years [...] encounter Miscellaneous Notes * Telephone Encounter - Lisa Odom RN - 05/01/2024 1:27 PM CDT He has rescheduled. Lisa Odom RN on 05/01/2024 at 1:27 PM * Telephone Encounter - Lisa Odom RN - 04/29/2024 9:20 AM CDT Placed call to Devin for review of pre-cardioversion information. He states that he is not feeling well, he has a frequent cough and feels like he has a cold. He is going to check a CoVid test when he returns home today. He will call in later to check with us. Lisa Odom RN on 04/29/2024 at 9:31 AM documented in this encounter Plan of Treatment Upcoming Encounters Date Type Department Care Team (Late st Contact Info) Description 05/14/2024 8:30 AM CDT Appointment [facility] [address] [phone] Teodoro Birch MD [address] [place] [address] 06/26/2024 12:40 PM TEST DECK SUPERVISOR Office Visit [facility] [place] [address] [facility] [address] [place] [phone] Khadra Poe APRN CNP [address] [place] [address] documented as of this encounter Visit Diagnoses Not on filedocumented in this encounter Care Teams Child And Family Therapist Relationship Specialty Start Date End Date No Ref-Primary, Physician PCP - General 06/18/21 Teodoro Birch MD [address] [place] [address] Assigned Heart and Vascular Provider 05/09/21 Mich Yanes MD [address] [address] Assigned PCP 05/27/21 documented as of this encounter
--- OUTSIDE RECORDS SUMMARY | 2024-05-02 10:27 | XMS_ITS | Encounter Summary ---
Author Organization [place] Address [facility] [place] [address] Care Team Providers Care Locomotive Mechanic Name Role Phone Ip, Teodoro Velazquez MD Unavailable [phone] No Ref-Primary, Physician Primary Care Provider Mich Yanes MD Unavailable [phone] Encounter Details Date Type Department Care Team (Latest Contact Info) Description 04/22/2024 Travel Social History Tobacco Use Types Packs/Day [...] Info) Description 05/14/2024 8:30 AM CDT Appointment [facility] [address] [phone] Ip, Teodoro Velazquez MD [address] [place] [address] 06/26/2024 12:40 PM SELF PROPELLED MINING MACHINE OPERATOR Office Visit [facility] [address] [facility] [address] [place] [phone] Khadra Poe APRN CNP [address] [address] documented as of this encounter Visit Diagnoses Not on filedocumented in this encounter Care Teams Locomotive Mechanic Relationship Specialty Start Date End Date No Ref-Primary, Physician PCP - General 06/18/21 Ip, Teodoro Velazquez MD [address] [phone] Assigned Heart and Vascular Provider 05/09/21 Mich Yanes MD [address] [place] [address] Assigned PCP 05/27/21 documented as of this encounter
--- OUTSIDE RECORDS SUMMARY | 2024-05-02 10:27 | XMS_ITS | Encounter Summary ---
Author Organization [place] Address [facility] [place] [address] Care Team Providers Care Radiation Monitor Name Role Phone Ip, Little Donis MD Unavailable No Ref-Primary, Physician Primary Care Provider Mich Yanes MD Unavailable [phone] Reason for Referral * CV Testing (Routine) - Closed Specialty Diagnoses / Procedures Referred By Ruby lima Referred To Contact Cardiology Diagnoses History of mitral valve repair Persistent atrial fibrillation (H) Procedures Echocardiogram Complete ZZHC TTE W/DOPPLER, COMPLETE ZZHC ECHO COMPLETE W DOPPLER W CONTRAST ZZHC ECHO COMPLETE W DOPPLER W/O CONTRAST ZZHC IV PUSH SINGLE, INITIAL SUBSTANCE ZZHC US GUIDE FOR PERICARDIOCENTESIS ZZHC ECHO MYOCARD BX ZZC INJECTION, PERFLUTREN LIPID MICROSPHERES, PER ML ZZHC STATISTIC IV PUSH SINGLE INITIAL SUBSTANCE TN ECHO MYOCARD BX TN INJECTION, PERFLUTREN LIPID MICROSPHERES, PER ML TN TTE W/DOPPLER, COMPLETE TN IV PUSH SINGLE, INITIAL SUBSTANCE TN TTE W/DOPPLER, COMPLETE TN TTE W/DOPPLER, COMPLETE HC US GUIDE FOR PERICARDIOCENTESIS HC ECHO MYOCARD BX HC IV PUSH SINGLE, INITIAL SUBSTANCE HC STATISTIC IV PUSH SINGLE INITIAL SUBSTANCE HC ECHO COMPLETE W DOPPLER W CONTRAST HC ECHO COMPLETE W DOPPLER W/O CONTRAST Ip, Little Donis MD [address] [place] [address] Rh Cv Cardiac Svc Rscc [address] [place] [address] Referral ID Status Reason Start Date Expiration Date Visits Re quested Visits Authorized [id number] Closed 03/27/2024 03/27/2025 1 1 * Consultation (Routine: Next available opening) - Pending Review Specialty Diagnoses / Procedures Referred By Contac t Referred To Contact Cardiovascular Disease Diagnoses History of mitral valve repair Persistent atrial fibrillation (H) Little Birch MD [address] [place] [address] Referral ID Status Reason Start Date Expiration Date V isits Requested Visits Authorized [id number] Pending Review 03/27/2024 03/27/2025 1 1 Question Answer Follow-up with: JOHNATHON Scheduling Instructions: [facility] will call you to coordinate your care as prescribed by your provider. If you have concerns about scheduling, please call [phone]. Comments [facility] will call you to coordinate your care as prescribed by your provider. If you have concerns about scheduling, please call [phone]. Encounter Details Date Type Department Care Team (Late st Contact Info) Description 03/27/2024 3:45 PM CDT Office Visit [facility] [place] [address] [place] [phone] Little Birch MD [address] [place] [id number] History of mitral valve repair (Primary Dx); Persistent atrial fibrillation (H) Social History Tobacco Use Types Packs/Day Years [...] Sign Reading Time Taken Comments Blood Pressure 132/70 03/27/2024 3:42 PM CDT Pulse 80 03/27/2024 3:42 PM CDT Temperature - - Respiratory Rate - - Oxygen Saturation - - Inhaled Oxygen Concentration - - Weight 80.3 kg (177 lb) 03/27/2024 3:42 PM CDT Height 179.1 cm (5' 10.5) 03/27/2024 3:42 PM CD T Body Mass Index 25.04 03/27/2024 3:42 PM CDT documented in this encounter Progress Notes * Ip, Little Donis MD - 03/27/2024 3:45 PM CDT HPI and Plan: Mr Desai, accompanied by his , returns today for follow-up of mitral valve disease. I first saw him in January 2021 when he presented with symptomatic severe mitral regurgitation due to flail P2 leaflet. He had atypical chest pain at that time and no shortness of breath but had progressive fatigue on exertion. Fortunately he had no coronary artery disease on coronary angiography preoperatively. On 03/03/21 Mr Desai successfully underwent Mitral valve repair with implantation of [place]-Ambrosio NeoChords to the flail P2 segment, implantation of a 34 mm Velasquez Physio II annuloplasty ring by Dr. Merlin Rouse. Postoperatively the mean gradient by ESTHER was only 1.7 mmHg. 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 He is followed up at the [facility] and he has been told that this is an extremely rare disease. In January 2021 CT scan of his aorta demonstrated aneurysmal dilatation of ascending thoracic aorta proximally just above the level the sinuses of Valsalva measuring approximately 5 x 4.7 cm. Aneurysmal dilatation of the descending thoracic aorta above the level of the aortic hiatus at the level the hemidiaphragm measuring 5.4 x 5.1 cm up. We consulted [facility] who advised us to continue to pursue conservative treatment for his aortic disease. He has done very well symptomatically after his mitral valve surgery. He is physically active and walks 4 miles a day without any cardiac symptoms. He has regular CTs of his thoracic aorta. He is notable to have MRIs as he is claustrophobic Last echocardiogram in 2021 shows intact mitral valve repair with a mean gradient of 1.8 mmHg. He does have mild to moderate tricuspid regurgitation but normal pulmonary artery pressures and normal right ventricular systolic function. His left atrium is mildly enlarged. On physical examination today he continues to have a short systolic murmur at the left sternal border consistent with a tricuspid regurgitation. Otherwise there is no evidence of CHF. However his heart rhythm is irregular and even prior to me entering the consultation room medical record clerk Derrell hinds taken his EKG in atrial fibrillation is confirmed. He was in sinus rhythm when he had his echocardiogram in 2021. He has a history of hypothyroidism and he has been told that this illness is very stable. He does not smoke abuse alcohol or drugs. This stage and I not sure exactly what precipitated atrial fibrillation but he certainly has the substrate for it and that he is 73 years old and has a history of mitral valve repair with left atrialenlargement. I am happy to see that he is asymptomatic from it though a controlled heart rate in the absence of negatively chronotropic drugs would suggest that he might have a degree of underlying conduction system disease. We discussed various approaches to treatment of atrial fibrillation. I like to see if we can restore and maintain normal sinus rhythm. He is agreeable to this approach. To this end I have asked him to stop taking aspirin and I will have him start on Eliquis 5 mg p.o. twice daily. Possible side effects were discussed. In the next 3 to 4 weeks I will have him come back for an H&P in preparation for elective cardioversion. Orders Placed This Encounter Procedures Follow-Up with Cardiology JOHNATHON EKG 12-lead complete w/read - Clinics (performed today) Echocardiogram Complete Orders Placed This Encounter Medications cannabidiol (EPIDIOLEX) 100 MG/ML oral solution Sig: Take by mouth as needed apixaban ANTICOAGULANT (ELIQUIS ANTICOAGULANT) 5 MG tablet Sig: Take 1 tablet (5 mg) by mouth 2 times daily Dispense: 60 tablet Refill: 11 Encounter Diagnoses Name Primary? History of mitral valve repair Yes Persistent atrial fibrillation (H) CURRENT MEDICATIONS: Current Outpatient Medications Medication Sig Dispense Refill apixaban ANTICOAGULANT (ELIQUIS ANTICOAGULANT) 5 MG tablet Take 1 tablet (5 mg) by mouth 2 times daily 60 tablet 11 cannabidiol (EPIDIOLEX) 100 MG/ML oral solution Take by mouth as needed levothyroxine (SYNTHROID/LEVOTHROID) 137 MCG tablet Take 137 mcg by mouth every morning Jngmzol-Dgzel-Ygvl-PassF-LBalm (MELATONIN + L-THEANINE) CAPS naproxen sodium (ALEVE) 220 MG capsule Take 220 mg by mouth as needed diphenhydrAMINE (BENADRYL) 25 MG capsule Take 25 mg by mouth At Bedtime (Patient not taking: Reported on 03/15/2023) ALLERGIES Allergies Allergen Reactions Amoxicillin Penicillins PAST MEDICAL HISTORY: Past Medical History: Diagnosis Date Cancer (H) basal cell skin cancer removed, Hx prostate cancer(radiation) Mitral valve posterior leaflet prolapse Thyroid disease thyroidectomy for benign nodules Vasculitis (H24) PAST SURGICAL HISTORY: Past Surgical History: Procedure Laterality Date CV CORONARY ANGIOGRAM Bilateral 02/04/2021 Procedure: Coronary Angiogram; Surgeon: Fermin Novoa MD; Location: HEART CARDIAC VERIFICATION MANAGER HEAD & NECK SURGERY REPLACE VALVE MITRAL N/A 03/03/2021 Procedure: MITRAL VALVE REPAIR WITH JOSE-VELASQUEZ PHYSIO RING SIZE 34 ON PUMP/ESTHER; Surgeon: Merlin Rouse MD; Location: OR FAMILY HISTORY: Family History Problem Relation Age of Onset Angina Father Coronary Artery Disease Father Colon Cancer Father Colon Cancer Brother SOCIAL HISTORY: Social History Socioeconomic History Marital status: Spouse name: None Number of children: None Years of education: None Highest education level: None Tobacco Use Smoking status: Never Smokeless tobacco: Never Substance and Sexual Activity Alcohol use: Yes Comment: glass of wine daily Drug use: Never Social Determinants of Health Financial Resource Strain: Low Risk (02/12/2023) Received from [facility], [facility] Overall Financial Resource Strain (CARDIA) Difficulty of Paying Living Expenses: Not very hard Food Insecurity: No Food Insecurity (02/14/2024) Received from [facility] Hunger Vital Sign Worried About Running Out of Food in the Last Year: Never true Ran Out of Food in the Last Year: Never true Transportation Needs: No Transportation Needs (02/14/2024) Received from [facility] PRAPARE - Transportation Lack of Transportation (Medical): No Lack of Transportation (Non-Medical): No Physical Activity: Sufficiently Active (02/14/2024) Received from [facility] Exercise Vital Sign Days of Exercise per Week: 3 days Minutes of Exercise per Session: 90 min Stress: No Stress Concern Present (12/18/2021) Received from [facility] [place] of Occupational Health - Occupational Stress Questionnaire Feeling of Stress : Only a little Social Connections: Moderately Integrated (12/18/2021) Received from [facility], [facility] Social Connection and Isolation Panel [NHANES] Frequency of Communication with Friends and Family: Twice a week Frequency of Social Gatherings with Friends and Family: More than three times a week Attends Bahai Services: Never Active Member of Clubs or Organizations: Yes Attends Club or Organization Meetings: Never Marital Status: Interpersonal Safety: Not At Risk (02/12/2023) Received from [facility] Humiliation, Afraid, Rape, and Kick questionnaire Fear of Current or Ex-Partner: No Emotionally Abused: No Physically Abused: No Sexually Abused: No Housing Stability: Low Risk (02/14/2024) Received from [facility] Housing Stability What is your living situation today?: I have a steady place to live Review of Systems: Skin: not assessed Eyes: not assessed ENT: not assessed Respiratory: Negative Cardiovascular: Negative Gastroenterology: not assessed Genitourinary: not assessed Musculoskeletal: not assessed Neurologic: not assessed Psychiatric: not assessed Heme/Lymph/Imm: not assessed Endocrine: not assessed Physical Exam: Vitals: BP 132/70 (BP Location: Right arm, Patient Position: Sitting, Cuff Size: Adult Regular) Pulse 80 Ht 1.791 m (5' 10.5) Wt 80.3 kg (177 lb) BMI 25.04 kg/m?? Constitutional: cooperative;well nourished Skin: warm and dry to the touch surgical scars well-healed Head: normocephalic Eyes: pupils equal and round Lymph:No Cervical lymphadenopathy present ENT: no pallor or cyanosis Neck: JVP normal;no carotid bruit Respiratory: normal respiratory excursion;clear to auscultation Cardiac: apical impulse not displaced;normal S1 and S2 irregular rhythm pulses full and equal GI: abdomen soft Extremities and Muscular Skeletal: no edema Neurological: no gross motor deficits Psych: Alert and Oriented x 3 Recent Lab Results: LIPID RESULTS: No results found for: CHOL, HDL, LDL, TRIG, CHOLHDLRATIO LIVER ENZYME RESULTS: Lab Results Component Value Date AST 43 03/04/2021 ALT 17 03/04/2021 CBC RESULTS: Lab Results Component Value Date WBC 8.2 06/21/2021 WBC 6.2 02/04/2021 RBC 4.33 (L) 06/21/2021 RBC 4.05 (L) 02/04/2021 HGB 14.0 06/21/2021 HGB 13.4 02/04/2021 HCT 42.4 06/21/2021 HCT 39.6 (L) 02/04/2021 MCV 98 06/21/2021 MCV 98 02/04/2021 MCH 32.3 06/21/2021 MCH 33.1 (H) 02/04/2021 MCHC 33.0 06/21/2021 MCHC 33.8 02/04/2021 RDW 13.2 06/21/2021 RDW 12.4 02/04/2021 PLT 192 06/21/2021 PLT 194 02/04/2021 BMP RESULTS: Lab Results Component Value Date NA 135 03/07/2021 NA 140 02/04/2021 POTASSIUM 3.8 03/07/2021 POTASSIUM 4.3 02/04/2021 CHLORIDE 103 03/07/2021 CHLORIDE 109 02/04/2021 CO2 26 03/07/2021 CO2 28 02/04/2021 ANIONGAP 6 03/07/2021 ANIONGAP 3 02/04/2021 GLC 106 (H) 03/07/2021 GLC 95 02/04/2021 BUN 14 03/07/2021 BUN 17 02/04/2021 CR 0.80 03/07/2021 CR 0.86 02/04/2021 GFRESTIMATED >90 03/07/2021 GFRESTIMATED 88 02/04/2021 GFRESTBLACK >90 02/04/2021 BRAULIO 8.9 03/07/2021 BRAULIO 9.0 02/04/2021 A1C RESULTS: Lab Results Component Value Date A1C 5.3 03/03/2021 INR RESULTS: Lab Results Component Value Date INR 1.46 (H) 03/03/2021 INR 1.67 (H) 03/03/2021 INR 1.11 02/04/2021 CC No referring provider defined for this encounter. documented in this encounter Plan of Treatment Upcoming Encounters Date Type Department Care Team (Late st Contact Info) Description 05/14/2024 8:30 AM CDT Appointment [facility] [address] [place] [phone] Little Birch MD [address] [place] [id number] 06/26/2024 12:40 PM CARDIOTHORACIC SURGEON Office Visit [facility] [address] [place] [phone] Khadra Poe E, SHANE SFDC SOLUTION ARCHITECT [address] [place] [id number] Scheduled Referrals Name Type Priority Associated Diagnoses Orde r Schedule Follow-Up with Cardiology JOHNATHON Referral Routine: Next available opening History of mitral valve repair Persistent atrial fibrillation (H) Expected: 2024 (Approximate), Expires: 03/27/2025 documented as of this encounter Procedures Procedure Name Priority Date/Time Associated Diagnosis Comments EKG 12-LEAD COMPLETE W/READ - CLINICS Routine 03/27/2024 History of mitral valve repair documented in this encounter Results * ECHO COMPLETE (04/25/2024 10:09 AM CDT) LVEF 60-65% CARDIOLOGY RESULTS Anatomical Region Laterality Modality Echocardiography 04/25/2024 8:51 AM CDT Narrative 04/25/2024 11:25 AM CDT [id number]^KASEY^LITTLE^TONY DONIS [facility] [address] [place] [address] Name: DEVIN DESAI : 1950 Study Date: 04/25/2024 08:51 AM Age: 73 yrs Gender: Male Patient Location: [facility] Reason For Study: History of mitral valve repair, Persistent atrial fibrillation ( Ordering Physician: LITTLE BIRCH Referring Physician: Zaida Ref-Primary, Physician Performed By: Lidia Ruiz BETTY BSA: 2.0 m2 Height: 70 in Weight: [...] Procedure Note Little Birch MD - 04/25/2024 [id number]^KASEY^LITTLE^TONY DONIS [facility] [address] [place] [id number] Name: DEVIN DESAI : 1950 Study Date: 04/25/2024 08:51 AM Age: 73 yrs Gender: Male Patient Location: [facility] Reason For Study: History of mitral valve [...] today) (03/27/2024) Little Birch MD ECG ORDERABLES documented in this encounter Visit Diagnoses Diagnosis History of mitral valve repair- Primary Personal history of surgery to heart and great vessels, presenting hazards to health Persistent atrial fibrillation (H) Atrial fibrillation History of mitral valve repair Personal history of surgery to heart and great vessels, presenting hazards to health Persistent atrial fibrillation (H) Atrial fibrillation documented in this encounter Care Teams Radiation Monitor Relationship Specialty Start Date End Date No Ref-Primary, Physician PCP - General 06/18/21 Little Birch MD [address] [place] [address] Assigned Heart and Vascular Provider 05/09/21 Mich Yanes MD [address] [place] [address] Assigned PCP 05/27/21 documented as of this encounter
--- OUTSIDE RECORDS SUMMARY | 2024-05-02 10:27 | XMS_ITS | Encounter Summary ---
Author Organization [place] Address [facility] [place] [address] Care Team Providers Care Player Development Executive Name Role Phone Ip, Teodoro Velazquez MD Unavailable [phone] No Ref-Primary, Physician Primary Care Provider Mich Yanes MD Unavailable [phone] Encounter Details Date Type Department Care Team (Latest Contact Info) Description 03/27/2024 Travel Social History Tobacco Use Types Packs/Day [...] Info) Description 05/14/2024 8:30 AM CDT Appointment [facility] [address] [place] [phone] Ip, Teodoro Velazquez MD [address] [place] [address] 06/26/2024 12:40 PM LIVESTOCK YARD ATTENDANT Office Visit [facility] [address] [address] [place] [phone] Khadra oPe APRN CNP [address] [place] [id number] documented as of this encounter Visit Diagnoses Not on filedocumented in this encounter Care Teams Player Development Executive Relationship Specialty Start Date End Date No Ref-Primary, Physician PCP - General 06/18/21 Ip, Teodoro Velazquez MD [address] [place] [id number] Assigned Heart and Vascular Provider 05/09/21 Mich Yanes MD [address] [place] [address] Assigned PCP 05/27/21 documented as of this encounter
--- OUTSIDE RECORDS SUMMARY | 2024-05-02 10:27 | XMS_ITS | Encounter Summary ---
Author Organization [place] Address [address] [place] [address]. [place] [address] Care Team Providers Care Shearer Screen Measurer And Trimmer Name Role Phone JjBluJessicapaulie Nicole PA-C Primary Care Provider Teodoro Birch MD Unavailable [phone] No Ref-Primary, Physician Primary Care Provider Mich Yanes MD Unavailable [phone] Encounter Details Date Type Department Care Team (Late st Contact Info) Description 06/01/2021 MyC Medical Advice [address] [place] [phone] Marci Junior Social History Tobacco Use Types Packs/Day Years Used Date Smoking Tobacco: Never Smokeless Tobacco: Never Alcohol Use Standard Drinks/Week Comments Yes 0 (1 standard drink = 0.6 oz pur e alcohol) glass of wine daily Sex and Gender Information Value Date Recorded Sex Assigned at Male 05/01/2021 11:53 PM CDT Gender Identity Male 05/01/2021 11:53 PM CDT Sexual Orientation Straight 05/01/2021 11 :53 PM CDT COVID-19 Exposure Response Date Recorded In the last month, have you been in contact with someone who was confirmed or suspected to have Coronavirus / COVID-19? No / Unsure 05/11/2021 10:00 AM CDT documented as of this encounter Plan of Treatment Upcoming Encounters Date Type Department Care Team (Late st Contact Info) Description 05/14/2024 8:30 AM CDT Appointment [facility] [address] [place] [phone] Teodoro Birch MD [address] [place] [address] 06/26/2024 12:40 PM TELEVISION REPAIRER Office Visit [facility] [address] [address] [place] [phone] Khadra Poe APRN TRIAL CONSULTANT [address] [place] [id number] documented as of this encounter Visit Diagnoses Not on filedocumented in this encounter Care Teams Shearer Screen Measurer And Trimmer Relationship Specialty Start Date End Date Collette Gardner PA-C [facility] [address] [place] [address] PCP - General Physician Skin Piler 01/12/21 06/17/21 No Ref-Primary, Physician PCP - General 06/18/21 Teodoro Birch MD [address] [place] [address] Assigned Heart and Vascular Provider 05/09/21 Mich Yanes MD [address] [place] [address] Assigned PCP 05/27/21 documented as of this encounter
--- OUTSIDE RECORDS SUMMARY | 2024-05-02 10:27 | XMS_ITS | Encounter Summary ---
Author Organization [place] Address [facility] [place] [address] Care Team Providers Care Lean Manager Name Role Phone Ip, Teodoro Velazquez MD Unavailable [phone] No Ref-Primary, Physician Primary Care Provider Mich Yanes MD Unavailable [phone] Encounter Details Date Type Department Care Team (Latest Contact Info) Description 04/25/2024 Travel Social History Tobacco Use Types Packs/Day [...] Info) Description 05/14/2024 8:30 AM CDT Appointment [facility] [address] [place] [phone] Ip, Teodoro Velazquez MD [address] [place] [address] 06/26/2024 12:40 PM MARKETING ANALYTICS LEAD Office Visit [facility] Heart [facility] [address] [place] [phone] Khadra Poe APRN CNP [address] [place] [id number] documented as of this encounter Visit Diagnoses Not on filedocumented in this encounter Care Teams Lean Manager Relationship Specialty Start Date End Date No Ref-Primary, Physician PCP - General 06/18/21 Ip, Teodoro Velazquez MD [address] [place] [id number] Assigned Heart and Vascular Provider 05/09/21 Mich Yanes MD [address] [place] [address] Assigned PCP 05/27/21 documented as of this encounter
--- OUTSIDE RECORDS SUMMARY | 2024-05-02 10:27 | XMS_ITS | Encounter Summary ---
Author Organization [place] Address [facility] [place] [address] Care Team Providers Care Radio Station Manager Name Role Phone Ip, Little Donis MD Unavailable No Ref-Primary, Physician Primary Care Provider Mich Yanes MD Unavailable [phone] Reason for Referral * CV Testing (Routine) - Closed Specialty Diagnoses / Procedures Referred By Ruby basilio Referred To Contact Cardiology Diagnoses History of [...] ZZHC STATISTIC IV PUSH SINGLE INITIAL SUBSTANCE CT ECHO MYOCARD BX CT INJECTION, PERFLUTREN LIPID MICROSPHERES, PER ML CT TTE W/DOPPLER, COMPLETE CT IV PUSH SINGLE, INITIAL SUBSTANCE CT TTE W/DOPPLER, COMPLETE CT TTE W/DOPPLER, COMPLETE HC US GUIDE FOR PERICARDIOCENTESIS HC ECHO MYOCARD BX HC IV PUSH SINGLE, INITIAL SUBSTANCE HC STATISTIC IV PUSH SINGLE INITIAL SUBSTANCE HC ECHO COMPLETE W DOPPLER W CONTRAST HC ECHO COMPLETE W DOPPLER W/O CONTRAST Ip, Little Donis MD [address] [address] [place] [address] Rh Cv Cardiac Svc Rscc [id number] [place] [address] Referral ID Status Reason Start Date Expiration Date Visits Re quested Visits Authorized [id number] Closed 03/27/2024 03/27/2025 1 1 Reason for Visit * CV Testing (Routine) - Closed Specialty Diagnoses / Procedures Referred By Contac t Referred To Contact Cardiology Diagnoses History of [...] ZZHC STATISTIC IV PUSH SINGLE INITIAL SUBSTANCE CT ECHO MYOCARD BX CT INJECTION, PERFLUTREN LIPID MICROSPHERES, PER ML CT TTE W/DOPPLER, COMPLETE CT IV PUSH SINGLE, INITIAL SUBSTANCE CT TTE W/DOPPLER, COMPLETE CT TTE W/DOPPLER, COMPLETE HC US GUIDE FOR PERICARDIOCENTESIS HC ECHO MYOCARD BX HC IV PUSH SINGLE, INITIAL SUBSTANCE HC STATISTIC IV PUSH SINGLE INITIAL SUBSTANCE HC ECHO COMPLETE W DOPPLER W CONTRAST HC ECHO COMPLETE W DOPPLER W/O CONTRAST Ip, Little Donis MD [address] [place] [address] Rh Cv Cardiac Svc Rscc [id number] [place] [address] Referral ID Status Reason Start Date Expiration Date Visits Re quested Visits Authorized [id number] Closed 03/27/2024 03/27/2025 1 1 Encounter Details Date Type Department Care Team (Latest Contact Info) Description 04/25/2024 9:23 AM CDT - 04/25/2024 11:59 PM CDT Hospital Encounter [facility] [address] [address] [place] [address] Little Parks MD [address] [place] [address] History of mitral valve repair; Persistent atrial fibrillation (H) Discharge Disposition: Home or Self Care Social [...] Sig Dispensed Refills Start Date End Date apixaban ANTICOAGULANT (ELIQUIS ANTICOAGULANT) 5 MG tabletIndications:History of mitral valve repair,Persistent atrial fibrillation (H) Take 1 tablet (5 mg) by mouth 2 times daily 60 tablet 11 03/27/2024 cannabidiol (EPIDIOLEX) 100 MG/ML oral solution Take by mouth as needed diphenhydrAMINE (BENADRYL) 25 MG capsule Take 25 mg by mouth at bedtime. levothyroxine (SYNTHROID/LEVOTHROID) 137 MCG tablet Take 137 mcg by mouth every morning Cheznmp-Ispbn-Iewl-PassF- LBalm (MELATONIN + L-THEANINE) CAPS naproxen sodium (ALEVE) 220 MG capsule Take 220 mg by mouth as needed 04/26/2024 documented as of this encounter Plan of Treatment Upcoming Encounters Date Type Department Care Team (Late st Contact Info) Description 05/14/2024 8:30 AM CDT Appointment [facility] [address] [phone] Little Parks MD [address] [place] [address] 06/26/2024 12:40 PM STAMP CLERK Office Visit [facility] [address] [place] [address] Khadra Poe APRN BUSINESS CONTINUITY CONSULTANT [address] [place] [address] documented as of this encounter Procedures Procedure Name Priority Date/Time Associated Diagnosis Comments ECHO COMPLETE Routine 04/25/2024 10:09 AM CDT History of mitral valve repair Persistent atrial fibrillation (H) documented in this encounter Results * ECHO COMPLETE (04/25/2024 10:09 AM CDT) LVEF 60-65% CARDIOLOGY RESULTS Anatomical Region Laterality Modality Echocardiography 04/25/2024 8:51 AM CDT Narrative 04/25/2024 11:25 AM CDT [id number]^KASEY^LITTLE^TONY DONIS [facility] Echocardiography Laboratory [address] [place] [address] Name: DEVIN CAST : 1950 Study Date: 04/25/2024 08:51 AM Age: 73 yrs Gender: Male Patient Location: [facility] Reason For Study: History of mitral valve repair, Persistent atrial fibrillation ( Ordering Physician: LITTLE PARKS Referring Physician: No Ref-Primary, Physician Performed By: [...] Villagomez 04/25/2024 11:25 AM Procedure Note Little Parks MD - 04/25/2024 [id number]^KASEY^LITTLE^TONY DONIS [facility] Echocardiography Laboratory [address] [place] [id number] Name: DEVIN CAST : 1950 Study Date: 04/25/2024 08:51 AM Age: 73 yrs Gender: Male Patient Location: [facility] Reason For Study: History of mitral valve repair, Persistent atrial fibrillation ( Ordering Physician: LITTLE PARKS Referring Physician: No Ref-Primary, Physician Performed By: [...] by: Ulises Villagomez 04/25/2024 11:25 AM Little Parks MD CV ECHO ORDERABLES documented in this encounter Visit Diagnoses Diagnosis History of mitral valve repair Personal history of surgery to heart and great vessels, presenting hazards to health Persistent atrial fibrillation (H) Atrial fibrillation documented in this encounter Care Teams Radio Station Manager Relationship Specialty Start Date End Date No Ref-Primary, Physician PCP - General 06/18/21 Little Parks MD [address] [place], [place] [id number] Assigned Heart and Vascular Provider 05/09/21 Mich Yanes MD [address] [place], [place] [address] Assigned PCP 05/27/21 documented as of this encounter
--- OUTSIDE RECORDS SUMMARY | 2024-05-02 10:27 | XMS_ITS | Encounter Summary ---
Author Organization [place] Address [address] [facility] [place] [address] Care Team Providers Care Log Sorter Name Role Phone Teodoro Birch MD Unavailable [phone] No Ref-Primary, Physician Primary Care Provider Mich Yanes MD Unavailable [phone] Reason for Referral * Consultation (Routine: Next available opening) - Pending Review Specialty Diagnoses / Procedures Referred By [place] acquired by [employer] t Referred To Contact Cardiovascular Disease Diagnoses Persistent atrial fibrillation (H) History of mitral valve repair Teodoro Birch MD [address] [address] Referral ID Status Reason Start Date Expiration Date V isits Requested Visits Authorized [id number] Pending Review 04/26/2024 04/26/2025 1 1 Question Answer Follow-up with: JOHNATHON Scheduling Instructions: [facility] will call you to coordinate your care as prescribed by your provider. If you have concerns about scheduling, please call [phone]. Comments [facility] will call you to coordinate your care as prescribed by your provider. If you have concerns about scheduling, please call [phone]. * Consultation (Routine: Next available opening) - Pending Review Specialty Diagnoses / Procedures Referred By Contac t Referred To Contact Cardiovascular Disease Diagnoses Persistent atrial fibrillation (H) History of mitral valve repair Teodoro Birch MD [address] [place] [address] Referral ID Status Reason Start Date Expiration Date V isits Requested Visits Authorized [id number] Pending Review 04/26/2024 04/26/2025 1 1 Question Answer Follow-up with: Self Scheduling Instructions: [facility] will call you to coordinate your care as prescribed by your provider. If you have concerns about scheduling, please call [phone]. Comments [facility] will call you to coordinate your care as prescribed by your provider. If you have concerns about scheduling, please call [phone]. * (Routine) - Authorized Specialty Diagnoses / Procedures Referred By Contac t Referred To Contact Cardiology Diagnoses Persistent atrial fibrillation (H) History of mitral valve repair Procedures Cardioversion External Teodoro Birch MD [address] [place] [address] [facility] [address] [place] [address] Referral ID Status Reason Start Date Expiration Date V isits Requested Visits Authorized [id number] Authorized 04/26/2024 04/26/2025 1 1 Reason for Visit * Reason Comments Follow Up 1 month follow up, H &P for cardioversion, echo review Encounter Details Date Type Department Care Team (Late st Contact Info) Description 04/26/2024 12:45 PM CDT Office Visit [facility] [place] [address] [facility] [address] [place] [address] Teodoro Birch MD [address] [place], [place] [address] Persistent atrial fibrillation (H) (Primary Dx); History of mitral valve repair Social History Tobacco Use Types Packs/Day Years [...] Pulse 90 04/26/2024 12:43 PM CDT Temperature - - Respiratory Rate - - Oxygen Saturation 100% 04/26/2024 12:43 PM CDT Inhaled Oxygen Concentration - - Weight 79.4 kg (175 lb) 04/26/2024 12:43 PM CDT Height 179.1 cm (5' 10.5) 04/26/2024 12:43 PM C DT Body Mass Index 24.75 04/26/2024 12:43 PM CDT documented in this encounter Progress Notes * Ip, Teodoro Velazquez MD - 04/26/2024 12:45 PM CDT HPI and Plan: This very nice 73-year-old gentleman, accompanied by his , returns for an H&P prior to elective cardioversion. Copying and pasting my last note: I first saw him in January 2021 when he presented with symptomatic severe mitral regurgitation due toflail P2 leaflet. He had atypical chest pain at that time and no shortness of breath but had progressive fatigue on exertion. Fortunately he had no coronary artery disease on coronary angiography preoperatively. On 03/03/21 Mr Desai successfully underwent Mitral valve repair with implantation of Brantley-Ambrosio NeoChords to the flail P2 segment, implantation of a 34 mm Velasquez Physio II annuloplasty ring by Dr. Merlin Rouse. Postoperatively the mean gradient by ESTHER was only 1.7 mmHg. 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 He is followed up at the [facility] and he has been told that this [...] 5.4 x 5.1 cm up. We consulted [facility] who advised us to continue to pursue [...] to me entering the consultation room medical scribe Derrell riosready taken his EKG in atrial fibrillation is [...] an H&P in preparation for elective cardioversion. Continues to be asymptomatic from the atrial fibrillation. He has been monitoring his heart rate with a blood pressure machine and there is some variation with rates between 40-100. I reassured him that this is what happens with A-fib. He has been more fatigued with joint aches and pains. I do not think this is a side effect from Eliquis. He has tested negative for COVID. Cardiac examination reveals an irregular heart rate but otherwise unremarkable. No CHF. Reviewed the echocardiogram with him. I am happy to see LVEF is normal. Mitral valve appear intact.Mild left atrial enlargement. He has been taking Eliquis uninterrupted and as such I think he is ready for cardioversion. And benefits explained. Quoted 90% success rate. See in 6 to 8 weeks after cardioversion. Informed him that he needs to be on Eliquis for at least 1month after cardioversion. CHADS2 Vascor at most 2. No orders of the defined types were placed in this encounter. Encounter Diagnoses Name Primary? Persistent atrial fibrillation (H) Yes History of mitral valve repair CURRENT MEDICATIONS: Current Outpatient Medications Medication Sig [...] Take 137 mcg by mouth every morning Opewjrg-Agwdc-Qbot-PassF-LBalm (MELATONIN + L-THEANINE) CAPS ALLERGIES Allergies Allergen Reactions Amoxicillin Penicillins PAST MEDICAL HISTORY: Past Medical History: Diagnosis Date Cancer (H) basal cell skin cancer removed, Hx prostate cancer(radiation) Mitral valve posterior leaflet prolapse Thyroid disease thyroidectomy for benign nodules Vasculitis (H24) PAST SURGICAL HISTORY: Past Surgical History: Procedure Laterality Date CV CORONARY ANGIOGRAM Bilateral 02/04/2021 Procedure: Coronary Angiogram; Surgeon: Fermin Novoa MD; Location: [facility] NECK SURGERY REPLACE VALVE MITRAL [...] Resource Strain: Low Risk (02/12/2023) Received from [facility] Overall Financial Resource Strain (CARDIA) Difficulty of Paying Living Expenses: Not very hard Food Insecurity: No Food Insecurity (02/14/2024) Received from [facility] Hunger Vital Sign Worried About Running Out of Food in the Last Year: Never true Ran Out of Food in the Last Year: Never true Transportation Needs: No Transportation Needs (02/14/2024) Received from [facility] PRAPARE - Transportation Lack of Transportation (Medical): No Lack of Transportation (Non-Medical): No Physical Activity: Sufficiently Active (02/14/2024) Received from [facility] Exercise Vital Sign Days of Exercise per Week: 3 days Minutes of Exercise per Session: 90 min Stress: No Stress Concern Present (12/18/2021) Received from [facility] [place] of Occupational Health - Occupational Stress Questionnaire Feeling of Stress : Only a little Social Connections: Moderately Integrated (12/18/2021) Received from [facility] Social Connection and Isolation Panel [NHANES] Frequency of Communication with Friends and Family: Twice a week Frequency of Social Gatherings with Friends and Family: More than three times a week Attends Scientology Services: Never Active Member of Clubs or Organizations: Yes Attends Club or Organization Meetings: Never Marital Status: Interpersonal Safety: Not At Risk (02/12/2023) Received from [facility] Humiliation, Afraid, Rape, and Kick questionnaire Fear of Current or Ex-Partner: No Emotionally Abused: No Physically Abused: No Sexually Abused: No Housing Stability: Low Risk (02/14/2024) Received from [facility] Housing Stability What is your living situation today?: I have a steady place to live Review of Systems: Skin: not assessed Eyes: not assessed ENT: not assessed Respiratory: Negative Cardiovascular: Negative Gastroenterology: not assessed Genitourinary: not assessed Musculoskeletal: not assessed Neurologic: not assessed Psychiatric: not assessed Heme/Lymph/Imm: not assessed Endocrine: not assessed Physical Exam: Vitals: BP (!) 150/92 (BP Location: Right arm, Patient Position: Sitting, Cuff Size: Adult Regular) Pulse 90 Ht 1.791 m (5' 10.5) Wt 79.4 kg (175 lb) SpO2 100% BMI 24.75 kg/m?? Constitutional: cooperative;well nourished Skin: warm and [...] 1.67 (H) 03/03/2021 INR 1.11 02/04/2021 CC Teodoro Birch MD [address] [place] [address] documented in this encounter Plan of Treatment Upcoming Encounters Date Type Department Care Team (Late st Contact Info) Description 05/14/2024 8:30 AM CDT Appointment [facility] [address] [phone] Teodoro Birch MD [address] [address] 06/26/2024 12:40 PM TOBACCO WEIGHER Office Visit [facility] [place] [address] [facility] [address] [place] [phone] Khadra Poe APRN CNP [address] [place] [id number] Scheduled Orders Name Type Priority Associated Diagnoses Orde r Schedule Cardioversion External Electrophysiology Routine Persistent atrial fibrillation (H) History of mitral valve repair Expected: 05/03/2024 (Approximate), Expires: 04/26/2025 Scheduled Referrals Name Type Priority Associated Diagnoses Orde r Schedule Follow-Up with Cardiology Referral Routine: Next available opening Persistent atrial fibrillation (H) History of mitral valve repair Expected: 10/24/2024 (Approximate), Expires: 04/26/2025 Follow-Up with Cardiology Referral Routine: Next available opening Persistent atrial fibrillation (H) History of mitral valve repair Expected: 05/26/2024 (Approximate), Expires: 04/26/2025 documented as of this encounter Visit Diagnoses Diagnosis Persistent atrial fibrillation (H)- Primary Atrial fibrillation History of mitral valve repair Personal history of surgery to heart and great vessels, presenting hazards to health documented in this encounter Care Teams Log Sorter Relationship Specialty Start Date End Date No Ref-Primary, Physician PCP - General 06/18/21 Teodoro Birch MD [address] [place] [address] Assigned Heart and Vascular Provider 05/09/21 Mich Yanes MD [address] [place] [address] Assigned PCP 05/27/21 documented as of this encounter
--- OUTSIDE RECORDS SUMMARY | 2024-05-02 10:27 | XMS_ITS | Encounter Summary ---
Author Organization [place] Address [address] [place] [address]. [place] [address] Care Team Providers Care [employer] Name Role Phone Ip, Teodoro Velazquez MD Unavailable No Ref-Primary, Physician Primary Care Provider Mich Yanes MD Unavailable [phone] Encounter Details Date Type Department Care Team (Late st Contact Info) Description 01/07/2022 [facility] Medical Advice [facility] [address] [place] [address] Lisa Odom, RN Social History Tobacco Use Types Packs/Day Years Used Date Smoking Tobacco: Never Smokeless Tobacco: Never Alcohol Use Standard Drinks/Week Comments Yes 0 (1 standard drink = 0.6 oz pur e alcohol) glass of wine daily PHQ-2 Answer Date Recorded PHQ-2 Score 0 06/21/2021 Sex and Gender Information Value Date Recorded Sex Assigned at Male 05/01/2021 11:53 PM CDT Gender Identity Male 05/01/2021 11:53 PM CDT Sexual Orientation Straight 05/01/2021 11 :53 PM CDT COVID-19 Exposure Response Date Recorded In the last 10 days, have yo u been in contact with someone who was confirmed or suspected to have Coronavirus/COVID-19? No / Unsure 01/07/2022 9:28 AM CDT documented as of this encounter Plan of Treatment Upcoming Encounters Date Type Department Care Team (Late st Contact Info) Description 05/14/2024 8:30 AM CDT Appointment [facility] [address] [phone] Teodoro Birch MD [address] [place] [id number] 06/26/2024 12:40 PM DEEP FAT COOK FRY Office Visit [facility] [place] [address] [facility] [address] [place] [phone] Poe, Khadra E, GLOBAL UPSTREAM MARKETING MANAGER WASH BARREL LEADER [address] [place] [address] documented as of this encounter Visit Diagnoses Not on filedocumented in this encounter Care Teams [employer] Relationship Specialty Start Date End Date No Ref-Primary, Physician PCP - General 06/18/21 Teodoro Birch MD [address] [place] [address] Assigned Heart and Vascular Provider 05/09/21 Mich Yanes MD [address] [place] [address] Assigned PCP 05/27/21 documented as of this encounter
== END 2024-05-02 10:22 | disposition home or self-care (01) ==
LOC: LKVREF 10:23
PROVIDERS: PCP Physician Assistant Medical; Visit Provider Emergency Medicine
DX: E03.9 Hypothyroidism, unspecified (principal); I48.91 Unspecified atrial fibrillation; R05.9 Cough, unspecified; D64.9 Anemia, unspecified
CPT/HCPCS: 80048; 84443

== ENCOUNTER 2024-08-05 10:45 | Outpatient (CLI) | payer BC, SELFPAY | END 2024-08-05 10:46 | disposition home or self-care (01) | PROVIDERS: PCP Physician Assistant Medical; Visit Provider Family Medicine | DX: E03.9 Hypothyroidism, unspecified (principal); R53.83 Other fatigue; Z85.46 Personal history of malignant neoplasm of prostate | CPT/HCPCS: 82607; 84153; 84443 ==

== ENCOUNTER 2025-02-07 12:57 | Outpatient (CLI) | payer BC, SELFPAY ==
--- OUTSIDE RECORDS SUMMARY | 2025-01-03 08:00 | XMS_ITS | Encounter Summary ---
Author Organization [facility] Address [address] [place] [address] Care Team Providers Care Energy Risk Management Analyst Name Role Phone Ip, Teodoro Velazquez MD Unavailable [phone] Collette Gardner PA-C Primary Care Provider Arnulfo Hill PA-C Unavailable [phone] Reason for Referral * Consultation (Routine: Next available opening) - Pending Review Specialty Diagnoses / Procedures Referred By Ruby lima Referred To Contact Cardiovascular Disease Diagnoses Paroxysmal atrial fibrillation (H) History of mitral valve repair Sinus bradycardia Arnulfo Hill PA-C [address] [place] [address] Phone: tel: fax: Referral ID Status Reason Start Date Expiration Date V isits Requested Visits Authorized [id number] Pending Review 01/03/2025 01/03/2026 1 1 Question Answer Follow-up with: Other Veterinary Livestock Inspector - Dr. Birch Reason for follow-up: General Cardiology Patient Scheduling Instructions: [facility] will call you to coordinate your care as prescribed by your provider. If you have concerns about scheduling, please call [phone]. Comments [facility] will call you to coordinate your care as prescribed by your provider. If you have concerns about scheduling, please call [phone]. Reason for Visit * Reason Comments Follow Up 6 month follow up ravinder Smith * Consultation (Routine) - Pending Review Specialty Diagnoses / Procedures Referred By Ruby t Referred To Contact Cardiovascular Disease Diagnoses Paroxysmal atrial fibrillation (H) History of mitral valve repair Sinus bradycardia Joe Kang NP [address] [place] [address] Phone: tel: fax: Referral ID Status Reason Start Date Expiration Date V isits Requested Visits Authorized [id number] Pending Review 06/28/2024 06/28/2025 1 1 Encounter Details Date Type Department Care Team (Late st Contact Info) Description 01/03/2025 8:00 AM CDT Office Visit [address] [place] [phone] Arnulfo Hill PA-C [address] [place] [address] Paroxysmal atrial fibrillation (H); History of mitral valve repair; Sinus bradycardia Social History Tobacco Use Types Packs/Day Years Used Date Smoking Tobacco: Never Smokeless Tobacco: Never Alcohol Use Standard Drinks/Week Comments Yes 0 (1 standard drink = 0.6 oz pur e alcohol) glass of wine daily PHQ-2 Answer Date Recorded PHQ-2 Score 0 01/03/2025 Adolescent Education Answer Date Record ed Getting School Help Needed Not on file 05/13 Sex and Gender Information Value Date Recorded Sex Assigned at Male 05/01/2021 11:53 PM CDT 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 Gender Identity Male 05/01/2021 11:53 PM CDT Sexual Orientation Straight 05/01/2021 11 :53 PM CDT documented as of this encounter Last Filed Vital Signs Vital Sign Reading Time Taken Comments Blood Pressure 129/67 01/03/2025 8:01 AM CDT Pulse 39 01/03/2025 8:01 AM CDT Temperature - - Respiratory Rate - - Oxygen Saturation 99% 01/03/2025 8:01 AM CDT Inhaled Oxygen Concentration - - Weight 80.2 kg (176 lb 12.8 oz) 01/03/2025 8:01 AM CDT Height 179.1 cm (5' 10.5) 01/03/2025 8:01 AM CD T Body Mass Index 25.01 01/03/2025 8:01 AM CDT documented in this encounter Patient Instructions * Patient Instructions* Arnulfo Hill PA-C - 01/03/2025 8:00 AM CDT Today's Plan: 1) Follow up with Luis or Dr. Birch in May. If you have questions or concerns please call my nurse team at [phone] Scheduling phone number: [phone] Reminder: Please bring in all current medications, over the counter supplements and vitamin bottlesto your next appointment. It was a pleasure seeing you today! documented in this encounter Progress Notes * Arnulfo Hill PA-C - 01/03/2025 8:00 AM CDT Primary Veterinary Livestock Inspector: Dr. Birch Reason for Visit: 6 month follow up with repeat ziopatch monitor History of Present Illness: Devin Desai is a very pleasant 74 year old male with past medical history notable for PAF/PACs (due to significant variability in his heart rates from 40- 100 he has not been on AV meño blocking agents; [id number] score of 2 but patient elected to switch from Eliquis to aspirin 81 mg daily), intermittent sinus bradycardia (he reports his heart rate can be as low as in the mid 30s; reports no symptoms associated with it), history of severe mitral valve regurgitation (s/p mitral valve repair with Morris-Ambrosio new cords and a 34 mm Manning annuloplasty ring in 02/[address] Rouse), giant cell arteritis, hypothyroidism, and moderately severe ascending aortic aneurysm measuring 4.8 cm(patient reports he gets MRA completed for surveillance of this at [facility]). Devin returns to clinic today with his spouse stating he is doing well. They recently returned from [place]. They go there every winter. He tries to go hiking, biking, and does daily walks. He has a mobile debbi called [employer] and checks his rhythm regularly on there. He tells me his heart rate candip down to the 30s but he has never had lightheadedness, syncope, or sudden onset of shortness of breath with it. Denies peripheral edema, orthopnea, abdominal distention, or bleeding issues. He does have hypothyroidism history and his he states his levels have been very stable for a number of years. He has follow-up coming up with his PCP in the near future with routine blood work prior. Assessment and Plan: Devin Desai is a very pleasant 74 year old male with past medical history notable for PAF/PACs with intermittent sinus bradycardia asymptomatic sinus bradycardia (manage on aspirin 81 mg daily despite [id number] score of 2 per patient's wishes; on no AV meño blocking agents), s/p mitral valve repair in 2020, moderately severe ascending aortic aneurysm monitored by [facility] team, giant cell arthritis, and hypothyroidism. His recent Zio patch monitor showed average heart rate of 59 bpm. His heart rate gets as low as 25 bpm at night. He had high burden PACs some of which were symptomatic. No significant pauses or high degree AV block was noted. Due to his low heart rate today we completed twelve-lead ECG and this showed marked sinus bradycardia but no evidence of AV block. He is completely asymptomatic. I will forward these results to his primary beveller operator to see if we should consider referral to EP team or continue monitoring. His medication list has cannabis gummy listed but patient tells me that he quit this several months ago tosee if it would help improve his bradycardia. We will set him up to follow-up with us in 6 months. 44 minutes spent on the date of the encounter with chart review, patient visit, care coordination, and documentation. The longitudinal plan of care for the diagnose(s)/condition(s) as documented were addressed during this visit. Due to the added complexity in care, I will continue to support Devin Desai in the subsequent management and with ongoing continuity of care. This note was completed in part using [employer] voice recognition software. Although reviewed after completion, some word and grammatical errors may occur. Orders this Visit: Orders Placed This Encounter Procedures Follow-Up with Cardiology EKG 12-lead complete w/read - Clinics (performed today) No orders of the defined types were placed in this encounter. There are no discontinued medications. Encounter Diagnoses Name Primary? Paroxysmal atrial fibrillation (H) History of mitral valve repair Sinus bradycardia CURRENT MEDICATIONS: Current Outpatient Medications Medication Sig Dispense Refill aspirin 81 MG EC tablet Take 81 mg by mouth every morning. diphenhydrAMINE (BENADRYL) 25 MG capsule Take 25 mg by mouth nightly as needed. levothyroxine (SYNTHROID/LEVOTHROID) 137 MCG tablet Take 137 mcg by mouth every morning. [facility] Kdkvzwb-Bgvvo-Tymr-PassF-LBalm (MELATONIN + L-THEANINE) CAPS Take by mouth every evening as needed. UNABLE TO FIND 1 cannabis gummy at bedtime every night ALLERGIES Allergies Allergen Reactions Amoxicillin Penicillins PAST MEDICAL HISTORY: Past Medical History: Diagnosis Date Cancer (H) basal cell skin cancer removed, Hx prostate cancer(radiation) Mitral valve posterior leaflet prolapse Thyroid disease thyroidectomy for benign nodules Vasculitis PAST SURGICAL HISTORY: Past Surgical History: Procedure Laterality Date CV CORONARY ANGIOGRAM Bilateral 02/04/2021 Procedure: Coronary Angiogram; Surgeon: Fermin Novoa MD; Location: [facility] PATENT [facility] HEAD & NECK SURGERY REPLACE VALVE MITRAL N/A 03/03/2021 Procedure: MITRAL VALVE REPAIR WITH JOSE-MANNING PHYSIO RING SIZE 34 ON PUMP/ESTHER; Surgeon: [...] of wine daily Drug use: Never Social Drivers of Health Financial Resource Strain: Low Risk (02/12/2023) Received from [facility] Overall Financial Resource Strain (CARDIA) Difficulty of Paying Living Expenses: Not very hard Food Insecurity: No Food Insecurity (02/14/2024) Received from [facility] Hunger Vital Sign Worried About Running Out of Food in the Last Year: Never true Ran Out of Food in the Last Year: Never true Transportation Needs: No Transportation Needs (02/14/2024) Received from [facility] PRAPARE - Transportation Lack of Transportation (Medical): No Lack of Transportation (Non-Medical): No Physical Activity: Sufficiently Active (02/14/2024) Received from [facility] Exercise Vital Sign Days of Exercise per Week: 3 days Minutes of Exercise per Session: 90 min Stress: No Stress Concern Present (12/18/2021) Received from [facility] [place] of Occupational Health - Occupational Stress Questionnaire Feeling of Stress : Only a little Social Connections: Moderately Integrated (12/18/2021) Received from [facility] Social Connection and Isolation Panel [NHANES] Frequency of Communication with Friends and Family: Twice a week Frequency of Social Gatherings with Friends and Family: More than three times a week Attends Hoahaoism Services: Never Active Member of Clubs or Organizations: Yes Attends Club or Organization Meetings: Never Marital Status: Interpersonal Safety: Not At Risk (02/12/2023) Received from [facility] Humiliation, Afraid, Rape, and Kick questionnaire Fear of Current or Ex-Partner: No Emotionally Abused: No Physically Abused: No Sexually Abused: No Housing Stability: Low Risk (02/14/2024) Received from [facility] Housing Stability What is your living situation today?: I have a steady place to live Review of Systems: Skin: not assessed Eyes: not assessed ENT: Positive for hearing loss Respiratory: Positive for shortness of breath Cardiovascular: Negative Gastroenterology: not assessed Genitourinary: not assessed Musculoskeletal: not assessed Neurologic: not assessed Psychiatric: not assessed Heme/Lymph/Imm: not assessed Endocrine: not assessed Physical Exam: Vitals: BP 129/67 (BP Location: Right arm, Patient Position: Sitting, Cuff Size: Adult Regular) Pulse (!) 39 Ht 1.791 m (5' 10.5) Wt 80.2 kg (176 lb 12.8 oz) SpO2 99% BMI 25.01 kg/m?? GEN: NAD NECK: No JVD C/V: Regular rate and rhythm, no murmur, rub or gallop. RESP: Clear to auscultation bilaterally without wheezing, rales, or rhonchi. GI: Abdomen soft, nontender, nondistended. No HSM appreciated. EXTREM: No pitting LE edema. NEURO: Alert and oriented, cooperative. No obvious focal deficits. PSYCH: Normal affect. SKIN: Warm and dry. Recent Lab Results: LIPID RESULTS: No results [...] INR 1.67 (H) 03/03/2021 INR 1.11 02/04/2021 Arnulfo Hill PA-C January 03, 2025 documented in this encounter Plan of Treatment Upcoming Encounters Date Type Department Care Team (Late st Contact Info) Description 05/29/2025 7:45 AM CDT Office Visit [facility] [address] [place] [address] Arnulfo Hill PA-C [address] [place] [address] Teodoro Birch MD [address] [place] [address] Scheduled Referrals Name Type Priority Associated Diagnoses Orde r Schedule Follow-Up with Cardiology Referral Routine: Next available opening Paroxysmal atrial fibrillation (H) History of mitral valve repair Sinus bradycardia Expected: 07/06/2025 (Approximate), Expires: 01/03/2026 documented as of this encounter Procedures Procedure Name Priority Date/Time Associated Diagnosis Comments EKG 12-LEAD COMPLETE W/READ - CLINICS Routine 01/03/2025 Paroxysmal atrial fibrillation (H) History of mitral valve repair Sinus bradycardia documented in this encounter Results * EKG 12-lead complete w/read - Clinics (performed today) (01/03/2025) Arnulfo Hill PA-C ECG ORDERABLES Final Result documented in this encounter Visit Diagnoses Diagnosis Paroxysmal atrial fibrillation (H) Atrial fibrillation History of mitral valve repair Personal history of surgery to heart and great vessels, presenting hazards to health Sinus bradycardia Other specified cardiac dysrhythmias documented in this encounter Care Teams Energy Risk Management Analyst Relationship Specialty Start Date End Date Collette Gardner PA-C [facility] [address] [place] [address] PCP - General Physician Ncr Operator 05/14/24 Teodoro Birch MD [address] [place] [address] Assigned Heart and Vascular Provider 05/09/21 Arnulfo Hill PA-C [address] [place] [id number] Physician Ncr Operator Cardiovascular Disease 11/07/24 documented as of this encounter
--- OUTSIDE RECORDS SUMMARY | 2025-01-10 09:45 | XMS_ITS | Encounter Summary ---
Author Organization [facility] Address [address] [place] [address] Care Team Providers Care Insurance Checker Name Role Phone Unavailable Primary Care Provider Unavailabl e Reason for Visit * Reason Onset Date Comments Pre-visit Intake 01/10/2025 * Appointment Request (Routine) - Pending Review Specialty Diagnoses / Procedures Referred By Ruby basilio Referred To Contact Rheumatology Referral ID Status Reason Start Date Expiration Date V isits Requested Visits Authorized [id number] Pending Review 10/28/2024 01/28/2026 1 1 Encounter Details Date Type Department Care Team (Latest Contact Info) Description 01/10/2025 9:45 AM CDT Clinical Communication Virtual Review in [place], [place] [address] [place] [address] Pre-visit Intake Social History Tobacco Use Types Packs/Day Years Used Date Smoking Tobacco: Never Smokeless Tobacco: Never Alcohol Use Standard Drinks/Week Comments Yes 3 (1 standard drink = 0.6 oz pur e alcohol) [facility] Utilities Answer Date Recorded In the past 12 months has e electric, gas, oil, or water company threatened to [...] by your partner or ex-partner? No 02/12/2023 Hunger Vital Sign Answer Date Recorded Within [...] things needed for daily living? No 02/14/2024 Housing Stability Answer Date Recorded What is your living situation today? I have a [facility] place to live 02/14/2024 Education Answer Date Recorded What is the highest level of school you have completed or the highest degree you have received? 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, in [place], [place] [address] [place] [address] Anette Clark M.D. [address] [place] [address] 04/08/2025 3:00 PM CDT Comprehensive Visit Division of Vascular and Endovascular Surgery in [place], [place] [address] [place] [address] Kali Lang M.D., M.S. [address] [place] [phone] documented as of this encounter Visit Diagnoses Not on filedocumented in this encounter
--- OUTSIDE RECORDS SUMMARY | 2025-01-13 09:37 | XMS_ITS | Encounter Summary ---
Author Organization [facility] Address [address] [place] [address] Care Team Providers Care Faculty I On Call Medical Assistant Name Role Phone Unavailable Primary Care Provider Unavailabl e Reason for Referral * MRI/CAT/PET Scan (Routine) - Closed Specialty Diagnoses / Procedures Referred By Ruby basilio Referred To Contact Radiology Diagnoses Vasculitis Procedures CT Chest Angiogram with IV Contrast Vera Fernandez APRN, C.N.P., M.S. [address] [place] [phone] Phone: tel:[phone] fax: [facility] Referral ID Status Reason Start Date Expiration Date Visits Re quested Visits Authorized [id number] Closed 02/24/2024 02/23/2025 1 1 Reason for Visit * MRI/CAT/PET Scan (Routine) - Closed Specialty Diagnoses / Procedures Referred By Ruby basilio Referred To Contact Radiology Diagnoses Vasculitis Procedures CT Chest Angiogram with IV Contrast Vera Fernandez APRN, C.N.P., M.S. [address] [place] [phone] Phone: tel:[phone] fax: [facility] Referral ID Status Reason Start Date Expiration Date Visits Re quested Visits Authorized [id number] Closed 02/24/2024 02/23/2025 1 1 Encounter Details Date Type Department Care Team (Latest Contact Info) Description 01/13/2025 9:37 AM CDT - 01/13/2025 10:49 AM CDT Hospital Encounter Department of Radiology, [facility], in [place], [place] [address] [place] [address] Vera Fernandez, SHANE, C.N.P., M.S. [address] [place] [address] Vasculitis Discharge Disposition: Home or Self Care Social History Tobacco Use Types Packs/Day Years Used Date Smoking Tobacco: Never Smokeless Tobacco: Never Alcohol Use Standard Drinks/Week Comments Yes 3 (1 standard drink = 0.6 oz pur e alcohol) [facility] Utilities Answer Date Recorded In the past 12 months has e electric, gas, oil, or water [employer] threatened to shut off services in your [...] your living situation today? I have a [facility] place to live 02/14/2024 Education Answer Date Recorded What is the highest level of school you have completed or the highest degree you have received? 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 Gender Identity Male 11/28/2018 12:14 PM CDT Sexual Orientation Straight 11/28/2018 12 :14 PM CDT documented as of this encounter Last Filed Vital Signs Vital Sign Reading Time Taken Comments Blood Pressure - - Pulse - - Temperature - - Respiratory Rate - - Oxygen Saturation - - Inhaled Oxygen Concentration - - Weight 80.4 kg (177 lb 4 oz) 01/13/2025 9:00 AM CDT Height 178.2 cm (5' 10.16) 01/13/2025 9:00 AM C DT Body Mass Index 25.32 01/13/2025 9:00 AM CDT documented in this encounter Medications at Time of Discharge acetaminophen (TYLENOL) 500 mg tablet Take 500 mg by mouth every 6 (six) hours as needed for pain. aspirin [address] tablet Take 81 mg by mouth daily. Every other day diphenhydrAMINE (BenadryL) 25 mg capsule Take 25 mg by mouth at bedtime as needed. levothyroxine (SYNTHROID, LEVOTHROID) 137 mcg tablet Take 137 mcg by mouth every morning before breakfast. 0 10/17/2018 naproxen sodium 220 mg capsule Take 220 mg by mouth as needed. sildenafiL (Viagra) 100 mg tablet 20 mg 03/08/2020 UNABLE TO FIND Take by mouth. Melaton-Thean -Zeoa-FxssA-O [place] (MELATONIN + L-THEANINE) CAPS azithromycin (Zithromax) 500 mg tablet 500 mg orally once; one tablet once; 30-60min prior to dental procedure* 01/14/2025 methocarbamoL (Robaxin) 500 mg tablet Take 500 mg by mouth daily as needed. 01/29/2022 01/14/2025 metoprolol tartrate (Lopressor) 25 mg tablet Take 25 mg by mouth daily. 01/12/2022 01/14/2025 niacin 500 mg ER capsule Take 500 mg by mouth at bedtime. 01/14/2025 oxyCODONE (ROXICODONE) 5 mg immediate release tablet Take 5 mg by mouth as needed for pain. 02/08/2023 01/14/2025 Senexon-S 8.6-50 mg per tablet Take by mouth as needed. 02/08/2023 01/14/2025 documented as of this encounter Plan of Treatment Upcoming Encounters Date Type Department Care Team (Late st Contact Info) Description 04/08/2025 9:15 AM CDT Appointment Department of Radiology, [facility], in [place], [place] [address] [place] [phone] Anette Clark M.D. [address] [place] [phone] 04/08/2025 3:00 PM CDT Comprehensive Visit Division of Vascular and Endovascular Surgery in [place], [place] [address] [place] [address] Kali Lang M.D., M.S. [address] [place] [phone] documented as of this encounter Procedures Procedure Name Priority Date/Time Associated Diagnosis Comments CT CHEST ANGIOGRAM WITH IV CONTRAST RAD - Routine (most inpatients and all outpatients) 01/13/2025 11:08 AM CDT Vasculitis documented in this encounter Results * CT Chest Angiogram with IV Contrast (01/13/2025 11:08 AM CDT) Anatomical Region Laterality Modality Chest, Cardiovascular RST LO S, Thoracic ARZ LOS, Thoracic FLA LOS, Vascular Interventional ARZ LOS, Procedural, Vascular Interventional NWWI LOS N/A Computed Tomography, Computed Tomography 01/13/2025 10:5 8 AM CDT Impressions 01/13/2025 1:17 PM CDT Slight interval increase in diameter is of the proximal mid and distal descending thoracic aorta, primarily the distal descending where in addition to expansion from approximately 49 mm to 56 mm currently, but 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 No signs of active vasculitis. See rodriguez images and measurements in series 1000. Ascending aorta and arch vessels unchanged. Narrative 01/13/2025 1:17 PM CDT EXAM: CT CHEST ANGIOGRAM WITH IV CONTRAST Including 3D image post-processing with or without AI assistance. COMPARISON: February 15, 2023 and December 20, 2021 FINDINGS: VASCULAR FINDINGS: There is been a slight increase in maximum dimensions of the descending thoracic aorta as detailed in the measurements below. There is additional laminated thrombus in the now more dilated distal descending thoracic aorta which has increased to approximately 56 mm versus 49 mm on the prior exams. No signs to suggest this is recent or active expansion. Other than the increased diameter and increased amount of laminated thrombus, overall appearance of the descending thoracic aorta is unchanged with no obviously inflamed aortic wall or new wall thickening. The scattered atheromatous changes extending into the upper abdominal aorta are all stable and presumably represent superimposed atherosclerotic changes on previous areas of giant cell arteritis. Aortic measurements: Sinus of Valsalva unchanged at 42 mm Sinotubular junction unchanged at 37 mm Mid ascending thoracic aorta unchanged at 49 mm Mid arch of aorta 34 mm unchanged from prior exams. Proximal descending thoracic aorta 34 mm, previously 32 mm. Mid descending thoracic aorta 42 mm, previously 40 mm Distal descending thoracic 56 mm, previously 49 mm. ADDITIONAL FINDINGS: No significant new nonvascular findings. Stable tiny pulmonary nodules and calcified granulomas. Old healed rib fractures. Sternotomy. Procedure Note Antonio Mueller M.D. - 01/13/2025 EXAM: CT CHEST ANGIOGRAM WITH IV CONTRAST Including 3D image post-processing with or without AI assistance. COMPARISON: February 15, 2023 and December 20, 2021 FINDINGS: VASCULAR FINDINGS: There is been a slight increase in maximum dimensions of the descendingthoracic aorta as detailed in the measurements below. There is additionallaminated thrombus in the now more dilated distal descending thoracicaorta which has increased to approximately 56 mm versus 49 mm on the prior exams. No signs to suggest this is recent or active expansion. Other than theincreased diameter and increased amount of laminated thrombus, overallappearance of the descending thoracic aorta is unchanged with no obviouslyinflamed aortic wall or new wall thickening. The scattered atheromatous changes extending into the upperabdominal aorta are all stable and presumably represent superimposedatherosclerotic changes on previous areas of giant cell arteritis. Aortic measurements: Sinus of Valsalva unchanged at 42 mm Sinotubular junction unchanged at 37 mm Mid ascending thoracic aorta unchanged at 49 mm Mid arch of aorta 34 mm unchanged from prior exams. Proximal descending thoracic aorta 34 mm, previously 32 mm. Mid descending thoracic aorta 42 mm, previously 40 mm Distal descending thoracic 56 mm, previously 49 mm. ADDITIONAL FINDINGS: No significant new nonvascular findings. Stable tiny pulmonary nodules and calcified granulomas. Old healed ribfractures. Sternotomy. IMPRESSION: Slight interval increase in diameter is of the proximal mid and distaldescending thoracic aorta, primarily the distal descending where inaddition to expansion from approximately 49 mm to 56 mm currently, but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 No signs of active vasculitis. See rodriguez images andmeasurements in series 1000. Ascending aorta and arch vessels unchanged. us Vera Fernandez APRN C.N.P., M.S. IMG CT MAMTA ABBASI Final Result documented in this encounter Visit Diagnoses Diagnosis Vasculitis documented in this encounter Administered Medications Inactive Administered Medications - up to 3 most recent administrations Medication Order MAR Action Action Date Dose Rate Site iopromide 370 mg iodine/mL injection 1-162 mL (Ultravist) 1-162 mL, intravenous, Once in imaging, contrast, Starting on Mon01/13/25 at 1046, For 1 dose, Imaging Protocol Orders, Dose per Radiant Medication Guidelines Given 01/13/2025 10:47 AM CDT 100 mL sodium chloride (PF) 0.9 % injection 1-100 mL 1-100 mL, intravenous, Once, On Mon01/13/25 at 1115, For 1 dose, Imaging Protocol Orders, Dose per Radiant Medication Guidelines Given 01/13/2025 10:47 AM CDT 30 mL documented in this encounter
--- OUTSIDE RECORDS SUMMARY | 2025-01-13 10:50 | XMS_ITS | Encounter Summary ---
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 [address] [place] [phone] Vasculitis Discharge Disposition: Home or Self Care Social History Tobacco Use Types Packs/Day Years Used Date Smoking Tobacco: Never Smokeless Tobacco: Never Alcohol Use Standard Drinks/Week Comments Yes 3 (1 standard drink = 0.6 oz pur e alcohol) [facility] Utilities Answer Date Recorded In the [...] ways by your partner or ex-partner? No 07 /09/2022 Within the last year, have y ou [...] your living situation today? I have a [facility] place to live 02/14/2024 Education Answer Date Recorded What is the highest level of school you have completed or the highest degree you have received? 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 Melaton-Thean -Rdem-QjwlR-M [place] (MELATONIN + L-THEANINE) CAPS azithromycin (Zithromax) 500 [...] 9:15 AM CDT Appointment Department of Radiology, [facility], in [place], [place] [address] [place] [phone] Anette Clark M.D. [address] [place] [phone] 04/08/2025 3:00 PM CDT Comprehensive Visit Division of Vascular and Endovascular Surgery in [place], [place] [address] [place] [phone] Kali Lang M.D., M.S. [address] [place] [phone] documented as of this encounter Procedures Procedure Name Priority Date/Time Associated Diagnosis Comments SEDIMENTATION RATE, B Routine 01/13/2025 11:27 AM CDT Vasculitis CBC WITH DIFFERENTIAL, B Routine 025 11:27 AM CDT Vasculitis C-REACTIVE PROTEIN (CRP), S/P Routine 01/13/2025 11:27 AM CDT Vasculitis ASPARTATE AMINOTRANSFERASE (AST), S/P Routine 01/13/2025 11:27 AM CDT Vasculitis CREATININE WITH EGFR, S/P Routine 01/13/2025 11:27 AM CDT Vasculitis documented in this encounter Results * AST (Aspartate Aminotransferase) (01/13/2025 11:27 AM CDT) Aspartate Aminotransferase (AST), S 24 8 - 48 U/L 01/13/2025 12:58 PM CDT DTL Blood (Blood, Venous) 01/13/2025 11:27 AM CDT 01/13/2025 12:16 PM CDT Teetee Sahu APRN.N.P., M.S. LAB BLOOD AD D-ON Final Result Performing Organization Address [facility]/[place] [address], [facility] [place] [address] * Creatinine with Estimated GFR (01/13/2025 11:27 AM CDT) Creatinine 0.82 0.74 - 1.35 mg/dL 01/13/2025 12:58 PM CDT DTL Estimated GFR (eGFR) >90 >=60 mL/min/BSA 01/13/2025 12:58 PM CDT DTL Comment: Estimated GFR calculated using the 2020 CKD_EPI creatinine equation. Blood (Blood, Venous) 01/13/2025 11:27 AM CDT 01/13/2025 12:16 PM CDT us Teetee Sahu APRN.N.P., M.S. LAB BLOOD AD D-ON Final Result [facility] [address] [place] [address], [facility] 200 [place] [address] * CRP (C-Reactive Protein) (01/13/2025 11:27 AM CDT) [facility] C-Reactive Protein (CRP), S <3.0 <5.0 mg/L 01/13/2025 12:58 PM CDT DTL Blood (Blood, Venous) 01/13/2025 11:27 AM CDT 01/13/2025 12:16 PM CDT Teetee Sahu APRN.N.P., M.S. LAB BLOOD AD D-ON Final Result [facility] [address] [place] [address], [facility] 200 [place] [address] * Sedimentation Rate (01/13/2025 11:27 AM CDT) [facility] Sedimentation Rate, B 6 3 - 28 mm/h 01/13/2025 1:42 PM CDT DTL Blood (Blood, Venous) 01/13/2025 11:27 AM CDT 01/13/2025 11:54 AM CDT Teetee Sahu APRN.N.P., M.S. LAB BLOOD AD D-ON Final Result [facility] [address] [place] [address], [facility] [address] [place] [address] * (ABNORMAL) CBC with Differential, Blood (01/13/2025 11:27 AM CDT) [facility] Hemoglobin 13.3 13.2 - 16.6 g/dL 01/13/2025 12:53 PM CDT DTL Hematocrit 39.9 38.3 - 48.6 % 01/13/2025 12:53 PM CDT DTL Erythrocytes 3.99(L) 4.35 - 5.65 x10(12)/L 01/13/2025 12:53 PM CDT DTL MCV 100.0(H) 78.2 - 97.9 fL 01/13/2025 12:53 PM CDT DTL RBC Distrib Width 12.9 11.8 - 14.5 % 01/13/2025 12:53 PM CDT DTL Platelet Count 185 135 - 317 x10(9)/L 01/13/2025 12:53 PM CDT DTL Leukocytes 6.4 3.4 - 9.6 x10(9)/L 01/13/2025 12:53 PM CDT DTL Neutrophils 4.15 1.56 - 6.45 x10(9)/L 01/13/2025 12:53 PM CDT [facility] Lymphocytes 1.17 0.95 - 3.07 x10(9)/L 01/13/2025 12:53 PM CDT DTL Monocytes 0.80 0.26 - 0.81 x10(9)/L 01/13/2025 12:53 PM CDT DTL Eosinophils 0.24 0.03 - 0.48 x10(9)/L 01/13/2025 12:53 PM CDT DTL Basophils 0.08 0.01 - 0.08 x10(9)/L 01/13/2025 12:53 PM CDT DTL Blood (Blood, Venous) 01/13/2025 11:27 AM CDT 01/13/2025 11:54 AM CDT us Vera Fernandez APRN, C.N.P., M.S. LAB BLOOD AD D-ON Final Result [facility] [address] [place] [address], [place] DTL [facility] [address] [place] [address] DHPM [facility] [address] [place] [address] documented in this encounter Visit Diagnoses Diagnosis Vasculitis documented in this encounter
--- OUTSIDE RECORDS SUMMARY | 2025-01-14 08:00 | XMS_ITS | Encounter Summary ---
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 [address] [place] [address] Phone: tel:[phone] fax: 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 [address] [place] [address] Phone: tel:[phone] fax: [facility] Referral ID Status Reason Start Date Expiration Date V isits Requested Visits Authorized [id number] Pending Review 01/14/2025 04/16/2026 1 1 * Outpatient (Routine) - Authorized Specialty Diagnoses / Procedures Referred By Contac t Referred To Contact Rheumatology Vrea Carnes APRN, C.N.Vincent., M.S. [address] [place] [address] Phone: tel: fax: 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 [address] [place] [address] Phone: tel:[phone] fax: 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 [address] [place] [address] Phone: tel:[phone] fax: 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 [address] [place] [address] Phone: tel:[phone] fax: [facility] Referral ID Status Reason Start Date Expiration Date Visits Re quested Visits Authorized [id number] Closed 01/14/2025 07/16/2026 1 1 Reason for Visit * Outpatient (Routine) - Closed Specialty Diagnoses / Procedures Referred By Contac t Referred To Contact Rheumatology Vera Carnes APRN, C.N.Vincent., M.S. [address] [place] [address] Phone: tel:[phone] fax: [facility] Referral ID Status Reason Start Date Expiration Date Visits Re quested Visits Authorized [id number] Closed 02/24/2024 08/25/2025 1 1 Encounter Details Date Type Department Care Team (Late st Contact Info) Description 01/14/2025 8:00 AM CDT Office Visit Division of Rheumatology in [place], [place] [address] [place] [phone] Vera Carnes APRN, C.N.PJayesh, M.S. 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 I have a [facility] place to live 02/14/2024 Education Answer Date Recorded What is the highest level of school you have completed or the highest degree you have received? Associate degree: occupational, technical, or vocational program 12/18/2021 Sex and Gender Information Value Date Recorded Sex Assigned at Male 11/28/2018 12:14 PM CDT Legal Sex Male 10:41 PM [employer] Gender Identity Male 11/28/2018 12:14 PM CDT Sexual Orientation Straight 11/28/2018 12 :14 PM CDT documented as of this encounter Last Filed Vital Signs Vital Sign Reading Time Taken Comments Blood Pressure 133/83 01/14/2025 7:35 AM CDT Pulse 64 01/14/2025 7:35 AM CDT Temperature - - Respiratory Rate - - Oxygen Saturation - - Inhaled Oxygen Concentration - - Weight - - Height - - Body Mass Index - - documented in this encounter Progress Notes * Vera Carnes APRN C.N.P., M.S. - 01/14/2025 8:00 AM CDT SUBJECTIVE CHIEF COMPLAINT / REASON FOR VISIT Devin Desai is a 74 y.o. male presenting today as an established patient for follow up of large vessel vasculitis. 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 He has been off Imuran for several years now He continues to do well off Imuran He has had stable lab monitoring. Sed [...] active arteritis. Had cataracts removed doing well Had cataract surgery. Does have irregular heart rate and faigue Giant Cell Arteritis Associated symptoms: joint pain (widespread athritis) and chest pain (only once a while at night iflays a certain way o n his side) Associated symptoms: no headaches, no scalp tenderness, no tenderness at left temporal artery, no tenderness at right temporal artery, no anterior neck pain, no tongue pain, no jaw pain, no vision loss, no double vision, no blurred vision, no shoulder pain, no shoulder stiffness, no hip pain, no hip stiffness, no joint swelling, no fever, not weight gain, no weight loss, no muscle weakness and noloss of consciousness Previous Reports Reviewed:lab reports and [...] vision and sudden loss of vision. Cardiovascular: Positive for chest pain, pressure or tightness (only once a while at night if lays a certain way o n his side). Musculoskeletal: Positive for pain or stiffness in the joints (widespread athritis). - Negative for joint swelling, shoulder pain and hip pain. Neurological: - Negative for loss of consciousness and headaches. OBJECTIVE PHYSICAL EXAM Physical Exam Vascular Exam Temporal Right Pulse: Normal Left Pulse: Normal Right Tender: No Left Tender: No Carotid Right Pulse: Normal Right Tender: No Left Tender: No Right Bruit: No Left Bruit: No Subclavian Right Bruit: No Left Bruit: No Radial Right Pulse: Normal Left Pulse: Normal General: Alert, oriented, appropriate affect, no apparent distress Skin: No rheumatic rashes. Eyes: Clear conjunctivae and lids. Ear, Nose and Throat: Moist oral mucosa without mucositis. Lymph: No cervical or supraclavicular adenopathy. Heart: irregular rate. No murmurs or rubs. Lungs: Clear to auscultation bilaterally. Gait: normal Joints: No synovitis of the upper and lower extremities including hands, wrists, elbows, knees, ankles or feet bilaterally. Range of motion of the extremities including shoulder and hips are within functional limits bilaterally. Lab: Lab Results Component Value Date/Time SEDRATE 6 01/13/2025 11:27 AM SEDRATE 5 02/21/2024 10:00 AM SEDRATE 58 (H) 02/15/2023 07:40 AM SEDRATE 7 01/12/2021 10:53 PM CRP <3.0 01/13/2025 11:27 AM CRP <3.0 02/21/2024 10:00 AM CRP 30.0 (H) 12/20/2021 11:03 AM CRP <2.9 01/12/2021 10:53 PM Lab Results Component Value Date/Time HGB 13.3 01/13/2025 11:27 AM HGB 13.5 02/21/2024 10:00 AM HGB 10.8 (L) 02/15/2023 07:40 AM HGB 10.8 (L) 03/03/2021 11:36 AM HGB 10.4 (L) 03/03/2021 10:50 AM HGB 9.5 (L) 03/03/2021 10:32 AM HGB 13.4 02/04/2021 07:05 AM HGB 13.5 01/12/2021 10:53 PM MCV 100.0 (H) 01/13/2025 11:27 AM MCV 100.2 (H) 02/21/2024 10:00 AM MCV 101.5 (H) 02/15/2023 07:40 AM MCV 98 02/04/2021 07:05 AM MCV 101 (H) 01/12/2021 10:53 PM WBC 6.4 01/13/2025 11:27 AM WBC 7.4 02/21/2024 10:00 AM WBC 8.7 02/15/2023 07:40 AM WBC 6.2 02/04/2021 07:05 AM WBC 7.8 01/12/2021 10:53 PM PLT 185 01/13/2025 11:27 AM PLT 233 02/21/2024 10:00 AM PLT 338 (H) 02/15/2023 07:40 AM PLT 194 02/04/2021 07:05 AM PLT 201 01/12/2021 10:53 PM Lab Results Component Value Date/Time CREATININE 0.82 01/13/2025 11:27 AM CREATININE 0.92 02/21/2024 10:00 AM CREATININE 0.82 02/15/2023 07:40 AM CREATININE 0.80 03/07/2021 07:22 AM CREATININE 0.81 03/06/2021 06:10 AM CREATININE 0.77 03/05/2021 07:08 AM CREATININE 0.86 02/04/2021 07:05 AM CREATININE 0.87 01/12/2021 10:53 PM EGFR >90 01/13/2025 11:27 AM EGFR 88 02/21/2024 10:00 AM EGFR >90 02/15/2023 07:40 AM 12/20/2021 Tender joint count (0-28) 0 Swollen joint count (0-28) 0 Patient global assessment (0-100) 5 Compliance Engineer global assessment (0-100) 5 ESR (mm/h) 27 CRP (mg/L) 30 Disease Activity Score 28 using ESR ([id number]) 2.38 Disease Activity Score 28 using CRP ([id number]) 2.27 Clinical Disease Activity Index (CDAI) 1 Simplified Disease Activity Index (SDAI) 4 [place] Vasculitis Activity Score (BVAS) for Rula's Granulomatosis (WG) Evaluation: Total BVAS/WG score: 0 ASSESSMENT / PLAN #1 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 #2 Vasculitis No signs of active vasculitis were seen on CT chest angiogram and inflammatory markers are stable off treatment does not have other symptoms of vasculitis. Have fatigue is multifactorial. Plan I will see him back in follow-up in 1 year's time back sooner if needed. Patient's questions were answered they verbalized understanding and agreed with plan. documented in this encounter Miscellaneous Notes * Addendum Note - Vera Carnes APRN, C.N.P., M.S. - 01/14/2025 8:00 AM CDT Addended by: VERA CARNES on: 01/14/2025 08:22 AM Modules accepted: Orders documented in this encounter Plan of Treatment Upcoming Encounters Date Type Department Care Team (Late st Contact Info) Description 04/08/2025 9:15 AM CDT Appointment Department of Radiology, [facility], in [place], [place] [address] [place] [address] Anette Clark M.D. [address] [place] [address] 04/08/2025 3:00 PM CDT Comprehensive Visit Division of Vascular and Endovascular Surgery in [place], [place] [address] [place] [address] Kali Lang M.D., M.S. 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 (HCC) Vasculitis (HCC) 1 Occurrences starting 01/14/2025 until 04/16/2026 CBC with Differential, Blood Lab Routine Vasculitis (HCC) Expected: 01/14/2026, Expires: 01/14/2026 Sedimentation Rate Lab Routine Vasculitis (HCC) Expected: 01/14/2026, Expires: 01/14/2026 CRP (C-Reactive Protein) Lab Routine Vasculitis (HCC) Expected: 01/14/2026, Expires: 01/14/2026 AST (Aspartate Aminotransferase) Lab Routine Vasculitis (HCC) Expected: 01/14/2026, Expires: 01/14/2026 ALT (Alanine Aminotransferase) Lab Routine Vasculitis (HCC) Expected: 01/14/2026, Expires: 01/14/2026 Creatinine with Estimated GFR Lab Routine Vasculitis (HCC) Expected: 01/14/2026, Expires: 01/14/2026 CT Chest Angiogram with IV Contrast Imaging RAD - Routine (most inpatients and all outpatients) 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 (HCC) Vasculitis (HCC) Expected: 01/14/2026, Expires: 01/14/2026 Scheduled Referrals Name Type Priority Associated Diagnoses Order Schedule Cardiovascular Disease - Marfan and thoracic aorta consult (clinic) Outpatient Referral Routine 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
--- OUTSIDE RECORDS SUMMARY | 2025-01-16 08:00 | XMS_ITS | Encounter Summary ---
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 [address] [place] [address] Phone: tel: fax: 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 [address] [place] [address] Phone: tel: fax: 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 [address] [place] [phone] Phone: tel: fax: 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 [address] [place] [phone] Phone: tel:[phone] fax: [facility] Referral ID Status Reason Start Date Expiration Date Visits Re quested Visits Authorized [id number] Closed 01/14/2025 07/16/2026 1 1 Encounter Details Date Type Department Care Team (Latest Contact Info) Description 01/16/2025 8:00 AM CDT Comprehensive Visit Department of Cardiovascular Medicine in [place], [place] [address] [place] [phone] Alvin Hayes M.D. 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 I have a [facility] place to live 02/14/2024 Education Answer Date Recorded What is the highest level of school you have completed or the highest degree you have received? Associate degree: occupational, technical, or vocational program 12/18/2021 Sex and Gender Information Value Date Recorded Sex Assigned at Male 11/28/2018 12:14 PM CDT Legal Sex Male 10:41 PM [employer] Gender Identity Male 11/28/2018 12:14 PM CDT Sexual Orientation Straight 11/28/2018 12 :14 PM CDT documented as of this encounter Last Filed Vital Signs Vital Sign Reading Time Taken Comments Blood Pressure 141/67 01/16/2025 7:44 AM CDT Pulse 48 01/16/2025 7:44 AM CDT Temperature - - Respiratory Rate - - Oxygen Saturation 98% 01/16/2025 7:44 AM CDT Inhaled Oxygen Concentration - - Weight 79.3 kg (174 lb 15 oz) 01/16/2025 7:44 AM CDT Height 176 cm (5' 9.29) 01/16/2025 7:44 AM CDT Body Mass Index 25.62 01/16/2025 7:44 AM CDT documented in this encounter Consult Notes * Aye Singh M.D. - 01/16/2025 8:00 AM CDT Images from the original note were not included. [facility] Office Visit - New Patient PATIENT NAME: Devin Desai [id number] VISIT DATE: 01/16/2025 Supervised by: Dr. Hayes Referring Provider: Vera Fernandez APRN C.N.P., M.S. [address] [place] [phone] Subjective Devin Desai is a 74 y.o. male who presents today to establish care. 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 He had been treated with corticosteroids, cyclophosphamide, and Imuride in the past. It was noted that he has significant enlargement in his descending thoracic aorta diameter and was referred for assessment. Today, he mentions feeling well overall except for intermittent arthritis symptoms in his hip and R wrist. More recently hehas been flying more to [place] and intermittently does long road trips and during this period he has been having chest discomfort and between his shoulder blades. He's quite active daily, babysitting for his great-grandkids regularly and doing house work. While doing these activities he has no symptoms, including no chest or back pain, palpitations, lightheadedness, syncope. He intermittently checks his BP at home and it's usually ~125/70 mmHg used predominantly with a wrist device - which he checked with an arm cuff. His father had a AAA but was also found with colon cancer which ultimatelytook his life (no dissection). One of his brothers had an RI at age 40. Another brother had small vessel vasculitis. There is no history of sudden . All other systems were reviewed and are negative other than what was noted above. History Medical History[1] Surgical History[2] Social History[3] Family History[4] Cardiovascular Risk Factors: 1. Smoking status: has never smoked 2. Diabetes Mellitus: no 3. Hypertension: white coat BP 4. Dyslipidemia: no 5. Family history of early Coronary Artery Disease in a first degree relative (Male less than 55 years of age; Female less than 65 years of age): yes 6. Obesity and/or Metabolic Syndrome: no 7. Sedentary lifestyle: no 8. ADEEL: unknown Current Cardiovascular Medications: Aspirin 81 mg daily Objective BP 141/67 (BP Location: Left arm, Patient Position: Sitting, Cuff Size: Regular) Pulse (!) 48 Ht 176 cm Wt 79.3 kg SpO2 98% BMI 25.62 kg/m?? Body mass index is 25.62 kg/m??. Physical exam: Constitutional: Appears comfortable, no acute distress. Thin. No Marfanoid features. HENT: No nasal drainage, external ears appear normal, mucous membranes moist. Eyes: PERRLA, no icterus, no pallor. Neck: No lymphadenopathy or thyromegaly, trachea midline. Cardiovascular: Regular rate and rhythm. Bradycardic. Normal S1 & S2. Grade 1 early diastolic murmur of maximal intensity in the tricuspid area, non-radiating, not respirophasic. No rubs or gallops. JVP normal. No carotid bruit. Prominent carotid and suprasternal pulsations. No extremity edema. Normal pedal pulses. Pulmonary/Chest: No use of accessory muscle. Chest was clear to auscultation bilaterally, no wheezing, no crackles. Gastrointestinal: Abdomen was soft, non-tender, non-distended, no masses felt, no hepatosplenomegaly. No abdominal pulsation. Musculoskeletal: No clubbing or cyanosis, full range of motion in all extremities. Neurological: No focal motor or sensory deficits. Skin: No suspicious lesions. Psychiatric: Alert and oriented x3. Appropriate mood and affect. Most Recent Labs: CBC 01/2025: Macrocytosis without anemia, PLT 185, WBC 6.4. Chem 01/2025: Normal creatinine, AST, and CRP (<3) Lipid panel (01/2021): Total Cholesterol: 188 Triglycerides: 90 HDL: 79 LDL: 90 HbA1c 02/2021: 5.3% Most Recent Cardiovascular Testing: EKG None recent Holter/Rhythm monitoring/Device interrogation (12/2024, [facility], OSH): 7 days. Baseline SR. One NSVT for 10 beats. 923 runs of SVT, longest 11 seconds. 25% PAC burden. Symptoms correlated with PACs. Echo (04/2024, OSH): Ascending Ao aneurysm 4.8 cm. No MS. Mild LA dilatation. LVEF 60-65%. Stress test: N/A Chest CT angiogram 01/2025: P+m distal descending thoracic Ao aneurysm, primarily distal descending, with expansion from 49 mm to 56 mm, small laminated thrombus, no active vasculitis. 02/2023 (+AP): Sinus of Valsalva unchanged at 42 mm Sinotubular junction unchanged at 37 mm Mid ascending thoracic aorta unchanged at 49 mm Mid arch of aorta 34 mm unchanged from prior Proximal descending thoracic aorta unchanged 32 mm Mid descending thoracic aorta unchanged at 40 mm Distal descending thoracic aorta unchanged at 49 mm Abdominal aorta just above the level the superior mesenteric artery origin 36 mm Infrarenal abdominal aorta unchanged at 24 mm CMR: N/A Coronary angiography 01/2021: LM normal. LAD o 10%, mid 20%. LCx mid 10%. RCA mid 10%. 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 - Distal descending thoracic Ao progressed from 49 mm (02/2023) to 56 mm (01/2025). Also noted extensive aortic calcifications. - Check abdominal CTA and head+neck CTA. - Start atorvastatin 40 mg daily. - Will discuss indication for apixaban (given concomitant paroxysmal Afib) after tentative surgery. - Ordered vascular surgery consultation - will defer to their assessment procedural strategy (e.g.,TEVAR for the distal descending thoracic vs possibly open to also treat the ascending aorta). Paroxysmal atrial fibrillation (not on AC) with intermittent sinus bradycardia Significant PAC burden (25%) Sinus bradycardia - Asymptomatic, HD stable. States HR dips in the 20s while sleeping. - Considered beta blockers given high PAC burden yet given concomitant bradycardia, will defer at this time. - Will consider HRS assessment after tentative surgery for his aorta. Elevated BP - Not formally diagnosed with HTN. BP at home on average 125/70 mmHg yet primarily measured with a wrist cuff. Goal would be consistent BP <120/70 mmHg given aneurysmal disease. - Check blood pressure 1-3 days/week, first thing in the morning and last thing in the evening, 2-3times each time, and track weekly morning and evening averages. If consistently above 130/80, then the patient should contact our office or the primary care provider to discuss next steps. (To find alist of validated blood pressure measuring devices to purchase, please go to https://www.validatebp.org) - Will consider antihypertensives based on above. 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 These recommendations were reviewed with Dr. Hayes and discussed with the patient. All questions were answered. Billy Singh M.D. PGY-5 Cardiovascular Disease Fellow [facility], [place], [place] Pager: [phone] 01/16/2025 8:18 AM CDT [1] Past Medical History: Diagnosis Date Cataract 02/16/2017 Headache Unspecified Use Imatrex to control Nodule Thyroid Thyroidectomy 08/31/2005 Other Specified Health Status mitral valve prolapse / Valve repaired 03/03/2021 Polyp Colon 09/16/10 Not cancerous Primary Malignant Neoplasm Of Prostate (HCC) Following up with Urologist for elevated PSA Skin Cancer (Primary) NOS Basal cell removed face,neck,chest and back Stone Kidney 10/03/2018 [2] Past Surgical History: Procedure Laterality Date CARDIAC VALVE SURGERY 03/03/2021 JOINT REPLACEMENT 02/08/2023 Left Hip OTHER CONVERTED SHX (SEE COMMENT) N/A 08/31/2005 >Right total thyroidectomy, isthmectomy. Left near-total thyroidectomy. OTHER CONVERTED SHX (SEE COMMENT) N/A 07/31/2000 >Temporal artery biopsy, left side THYROID SURGERY 08/31/2005 VASECTOMY 1975 [3] Social History Tobacco Use Smoking status: Never Smokeless tobacco: Never Substance Use Topics Alcohol use: Yes Alcohol/week: 3.0 standard drinks of alcohol Types: 3 Glasses of wine per week Drug use: No [4] Family History Problem Relation Name Age of Onset Colon cancer Brother Isaiah Desai Diabetes Brother Abhishek Desai Cosigned by Alvin Hayes M.D. at 01/16/2025 11:45 AM CDT Associated attestation - Alvin Hayes M.D. - 01/16/2025 11:45 AM CDT I saw and evaluated the patient, participating in the rodriguez portions of the service. I reviewed Dr. Singh???s note. I agree with Dr. Singh's findings and plan. Mr. Desai is a very pleasant 74 year old man with history of aortitis with negative temporal arterybiopsy (presumed GCA diagnosed in 1999), off immunosuppression, with aneurysmal aorta; severe MR inthe setting of flail P2 s/p MV repair with [place]-Ambrosio NeoChords and 34 mm Manning Physio II annuloplasty ring (February 2021); paroxysmal AF not on AC (CHADS2-Vasc 2) with 25% PAC burden based on outside [facility] (December 2024) who presents for evaluation of aneurysmal aorta. He was recently seen for follow up in Rheumatology. Cross-sectional imaging of the chest on 01/13/2025 showed 4.2 cm sinus of Valsalva, 4.9 cm mid ascending aorta, 4.2 cm mid descending aorta, and 5.6 cm distal descending thoracic aorta with mural thrombus; there was no signs of active vasculitis and his inflammatory markers have been negative. Of note, his distal descending aorta has enlarged to 5.6 cm from proximally 4.9 cm fromJuly of 2022. The rest of his aorta has remained overall stable in size. He is overall quite activeand has no cardiovascular symptoms with activity. Most recent labs with hemoglobin 13.3, platelets 185, creatinine 0.82. CRP less than 3. In summary, Mr. Desai is a very pleasant 74-year-old gentleman with a history of aneurysmal aorta in the setting of history of GCA. We discussed that despite absence of active vasculitis, aorta can progressively enlarge. His distal descending aorta has increased since 2022, is now more than 5.5 cm.Given this increase, as well as the fact that it is more than 5.5 cm, I believe that he should be seen by my vascular surgery colleagues for consideration of intervention. We will obtain cross-sectional imaging of the abdomen and pelvis, as well as head and neck in preparation for this appointment. We discussed importance of appropriate blood pressure control with goal blood pressure less than 120/70 given his aneurysmal disease. I have asked him to measure his blood pressure at home and to message me with numbers in the few weeks. Additionally, given presence of aortic aneurysms, significantaortic calcifications, this is ASCVD equivalent and we will start high-intensity statin for this. He does have history of paroxysmal atrial fibrillation, as well as high PAC burden, which puts him at higher risk of developing recurrent atrial fibrillation. He is not on anticoagulation currently. His CHADS2 Vasc is 2, and therefore he is certainly should be considered for anticoagulation to reduce the risk of stroke/systemic thromboembolism. I do not believe that this needs to be started perioperatively prior to his aortic surgery, but certainly should be considered at discharge after his aortic surgery. I will plan to touch base with Mr. Desai after his vascular surgery consultation is complete. 70 minutes spent reviewing prior records, imaging (CTA chest), [id number] consultation with the patient, and coordination of care. Alvin Hayes MD, MPH Cardiovascular Medicine [place] documented in this encounter Plan of Treatment Upcoming Encounters Date Type Department Care Team (Late st Contact Info) Description 04/08/2025 9:15 AM CDT Appointment Department of Radiology, [facility], in [place], [place] [address] [place] [address] Anette Clark M.D. [address] [place] [address] 04/08/2025 3:00 PM CDT Comprehensive Visit Division of Vascular and Endovascular Surgery in [place], [place] [address] [place] [address] Kali Lang M.D., M.S. 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 The proximal abdominal aorta shows gradual normalization of diameter down into the infrarenal segment. Please see diameter measurements in the body of the report. Please also refer to the CT chest angiogram from January 13, 2025 for a full description of the thoracic aorta and the chest. 2. Severely tortuous common iliac artery with mild poststenotic dilatation to a maximum diameter of 17 mm. Mildly tortuous right common iliac artery. Narrative 01/22/2025 8:30 AM CDT EXAM: CT ABDOMEN PELVIS ANGIOGRAM WITH IV CONTRAST Including 3D image post-processing with or without AI assistance. COMPARISON: CT chest angiogram January 13, 2025 FINDINGS: VASCULAR FINDINGS: ABDOMINAL AORTA: Distal thoracic and proximal abdominal aorta show tapering of the fusiform dilatation and normalization of aortic diameters at the level level of the bilateral renal arteries. Please also see the report of the January 13, [address] for a more comprehensive description of the thoracic aorta. Aortic diameter at the level of the celiac artery origin is 42 mm. Diameter at the level of the superior mesenteric artery ostium is 36 mm. Infrarenal abdominal aorta has a diameter of 26 mm. Please see the additional screen captures in series 1000. RENAL ARTERIES: Right renal arteries: Solitary widely patent right renal artery. A tiny caliber branch to the upper pole of the right renal artery originates immediately distal to the ostium. Left renal arteries: Solitary widely patent left renal artery. VISCERAL ARTERIES: Celiac artery: Of normal caliber and widely patent. Conventional branching pattern. Superior mesenteric artery: Of normal caliber and widely patent. Inferior mesenteric artery: Of normal caliber and widely patent. ILIAC ARTERIES: Right common iliac artery: Moderately tortuous. Of normal caliber and widely patent. Right internal iliac artery: Of normal caliber and widely patent. Right external iliac artery: Of normal caliber and widely patent. Right femoral arteries: Of normal caliber with nonstenotic trace calcifications. Proximal upper leg arteries are widely patent without plaque or stenosis. Left common iliac artery: Severely tortuous with mild kinking in the proximal segment. There is mild poststenotic dilatation to a maximum diameter of 17 mm on series 5, image 175. Left internal iliac artery: Mild ostial stenosis. Otherwise of normal caliber and widely patent. Left external iliac artery: Of normal caliber and widely patent. Left femoral arteries: Of normal caliber and widely patent. Proximal upper leg arteries are widely patent without plaque or stenosis ADDITIONAL FINDINGS: Liver, gallbladder, spleen, pancreas, bilateral adrenals are unremarkable. Tiny nonobstructive calculi in both pelvicalyceal systems. Normal caliber small and large bowel loops. Calcifications in the prostate. Mild degenerative changes of the lumbar spine. No suspicious or acute osseous lesions. Multiple bone islands are noted. Degenerative changes in the right hip. Total left hip total arthroplasty. Procedure Note Jose Yousif M.D., Ph.D. - 01/22/2025 EXAM: CT ABDOMEN PELVIS ANGIOGRAM WITH IV CONTRAST Including 3D image post-processing with or without AI assistance. COMPARISON: CT chest angiogram January 13, 2025 FINDINGS: VASCULAR FINDINGS: ABDOMINAL AORTA: Distal thoracic and proximal abdominal aorta showtapering of the fusiform dilatation and normalization of aortic diametersat the level level of the bilateral renal arteries. Please also see thereport of the January 13, [address] for a more comprehensive description of the thoracic aorta. Aortic diameter atthe level of the celiac artery origin is 42 mm. Diameter at the level ofthe superior mesenteric artery ostium is 36 mm. Infrarenal abdominal aortahas a diameter of 26 mm. Please see the additional screen captures in series 1000. RENAL ARTERIES: Right renal arteries: Solitary widely patent right renal artery. A tinycaliber branch to the upper pole of the right renal artery originatesimmediately distal to the ostium. Left renal arteries: Solitary widely patent left renal artery. VISCERAL ARTERIES: Celiac artery: Of normal caliber and widely patent. Conventionalbranching pattern. Superior mesenteric artery: Of normal caliber and widely patent. Inferior mesenteric artery: Of normal caliber and widely patent. ILIAC ARTERIES: Right common iliac artery: Moderately tortuous. Of normal caliber andwidely patent. Right internal iliac artery: Of normal caliber and widely patent. Right external iliac artery: Of normal caliber and widely patent. Right femoral arteries: Of normal caliber with nonstenotic tracecalcifications. Proximal upper leg arteries are widely patent withoutplaque or stenosis. Left common iliac artery: Severely tortuous with mild kinking in theproximal segment. There is mild poststenotic dilatation to a maximumdiameter of 17 mm on series 5, image 175. Left internal iliac artery: Mild ostial stenosis. Otherwise of normalcaliber and widely patent. Left external iliac artery: Of normal caliber and widely patent. Left femoral arteries: Of normal caliber and widely patent. Proximalupper leg arteries are widely patent without plaque or stenosis ADDITIONAL FINDINGS: Liver, gallbladder, spleen, pancreas, bilateral adrenals are unremarkable.Tiny nonobstructive calculi in both pelvicalyceal systems. Normal calibersmall and large bowel loops. Calcifications in the prostate. Mild degenerative changes of the lumbar spine. No suspicious or acuteosseous lesions. Multiple bone islands are noted. Degenerative changes inthe right hip. Total left hip total arthroplasty. IMPRESSION: 1. The proximal abdominal aorta shows gradual normalization of diameterdown into the infrarenal segment. Please see diameter measurements in thebody of the report. Please also refer to the CT chest angiogram from 2024 for a full description of the thoracic aorta and the chest. 2. Severely tortuous common iliac artery with mild poststenoticdilatation to a maximum diameter of 17 mm. Mildly tortuous right commoniliac artery. us Alvin KNOX CT PROCEDURES Final Re sult * CT Head Neck Angiogram with IV Contrast (01/20/2025 4:59 PM CDT) Anatomical Region Laterality Modality Head and Neck, Neuroradiolog y RST LOS, Neuroradiology JOSH GARCIA, Neuroradiology FLMimi LOS N/A Computed Tomography, Compute d Tomography Impressions 01/21/2025 8:41 AM CDT 1. The right upper lobe pulmonary opacities would be better evaluated with chest CT if clinically appropriate. 2. Mild scattered calcific atherosclerotic changes as described. Narrative 01/21/2025 8:41 AM CDT EXAM: CT HEAD NECK ANGIOGRAM WITH IV CONTRAST Including 3D image post-processing with or without AI assistance. FINDINGS: CTA head and neck with intravenous contrast 01/20/2025. Indication aortitis, presumed GCA. No available comparison. Scattered aortic arch calcification without great vessel origin stenosis. The nondominant left vertebral artery arises from the aortic arch. No evident focal cervical vertebral artery stenosis. The common carotids are unremarkable. Mild focal calcification at the left ICA origin. The ICA origins and carotid bulbs are widely patent. The cervical ICAs have an unremarkable appearance with no focal stenosis. No evident cervical aneurysm. No focal carotid siphon, intracranial vertebrobasilar, or first order cerebral artery stenosis is demonstrated. 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 Patent anterior communicating artery with diminutive right A1. No evident intracranial aneurysm. 3 mm right upper lobe poorly marginated pulmonary nodule (se 6/im 37). Focal right upper lobe groundglass opacification (se 6/im 71). Apparent focal spinal canal narrowing at C4-5 and C5-6. Bilateral cataract surgery. Procedure Note Eris Baez M.D. - 01/21/2025 EXAM: CT HEAD NECK ANGIOGRAM WITH IV CONTRAST Including 3D image post-processing with or without AI assistance. FINDINGS: CTA head and neck with intravenous contrast 01/20/2025. 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 No available comparison. Scattered aortic arch calcification without great vessel origin stenosis.The nondominant left vertebral artery arises from the aortic arch. Noevident focal cervical vertebral artery stenosis. The common carotids areunremarkable. Mild focal calcification at the left ICA origin. The ICA origins and carotid bulbsare widely patent. The cervical ICAs have an unremarkable appearance withno focal stenosis. No evident cervical aneurysm. No focal carotid siphon, intracranial vertebrobasilar, or first ordercerebral artery stenosis is demonstrated. 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 Patentanterior communicating artery with diminutive right A1. No evidentintracranial aneurysm. 3 mm right upper lobe poorly marginated pulmonary nodule (se 6/im 37).Focal right upper lobe groundglass opacification (se 6/im 71). Apparentfocal spinal canal narrowing at C4-5 and C5-6. Bilateral cataractsurgery. IMPRESSION: 1. The right upper lobe pulmonary opacities would be better evaluated withchest CT if clinically appropriate. 2. Mild scattered calcific atherosclerotic changes as described. 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
--- OUTSIDE RECORDS SUMMARY | 2025-01-20 15:24 | XMS_ITS | Encounter Summary ---
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 [address] [place] [address] Phone: tel: fax: [facility] Referral ID Status Reason Start Date Expiration Date Visits Re quested Visits Authorized [id number] Closed 01/16/2025 04/18/2026 1 1 Encounter Details Date Type Department Care Team (Latest Contact Info) Description 01/20/2025 3:24 PM CDT - 01/20/2025 11:59 PM CDT Hospital Encounter Department of Radiology, [facility], in [place], [place] [address] [place] [address] Alvin Hayes M.D. 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 I have a [facility] place to live 02/14/2024 Education Answer Date Recorded What is the highest level of school you have completed or the highest degree you have received? 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 aspirin [address] tablet Take 81 mg by mouth daily. Every other day atorvastatin (Lipitor) 40 mg tablet Take 1 tablet (40 mg total) by mouth daily. 90 tablet 3 01/16/2025 diphenhydrAMINE (BenadryL) 25 mg capsule Take 25 mg by mouth at bedtime as needed. levothyroxine (SYNTHROID, LEVOTHROID) 137 mcg tablet Take 137 mcg by mouth every morning before breakfast. 0 10/17/2018 naproxen sodium 220 mg capsule Take 220 mg by mouth as needed. sildenafiL (Viagra) 100 mg tablet 20 mg 03/08/2020 UNABLE TO FIND Take by mouth. Melaton-Thean- Hzme-QsrdU-[id number] lm (MELATONIN + L-THEANINE) CAPS documented as of this encounter Plan of Treatment Upcoming Encounters Date Type Department Care Team (Late st Contact Info) Description 04/08/2025 9:15 AM CDT Appointment Department of Radiology, [facility], in [place], [place] [address] [place] [address] Anette Clark M.D. [address] [place] [address] 04/08/2025 3:00 PM CDT Comprehensive Visit Division of Vascular and Endovascular Surgery in [place], [place] [address] [place] [address] Kali Lang M.D., M.S. 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 Left origin DATA MANAGER. Patent anterior communicating artery with diminutive right [...] ordercerebral artery stenosis is demonstrated. Left origin DATA MANAGER. Patentanterior communicating artery with diminutive right A1. [...] Without Rupture Vasculitis documented in this encounter Administered Medications Inactive Administered Medications - up to 3 most recent administrations Medication Order MAR Action Action Date Dose Rate Site iohexoL 350 mg iodine/mL solution 1-200 mL (Omnipaque) 1-200 mL, intravenous, Once in imaging, contrast, Starting on 01/20/25 at 1630, For 1 dose, Imaging Protocol Orders, Dose per Radiant Medication Guidelines Given 01/20/2025 4:30 PM CDT 100 mL sodium chloride (PF) 0.9 % injection 1-100 mL 1-100 mL, intravenous, Once, On Mon01/20/25 at 1700, For 1 dose, Imaging Protocol Orders, Dose per Radiant Medication Guidelines Given 01/20/2025 4:30 PM CDT 35 mL documented in this encounter
--- OUTSIDE RECORDS SUMMARY | 2025-01-22 06:31 | XMS_ITS | Encounter Summary ---
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 [address] [place] [address] Phone: tel: fax: [facility] Referral ID Status Reason Start Date Expiration Date Visits Re quested Visits Authorized [id number] Closed 01/16/2025 04/18/2026 1 1 Encounter Details Date Type Department Care Team (Latest Contact Info) Description 01/22/2025 6:31 AM CDT - 01/22/2025 11:59 PM CDT Hospital Encounter Department of Radiology, [facility], in [place], [place] [address] [place] [address] Alvin Hayes M.D. 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 I have a [facility] place to live 02/14/2024 Education Answer Date Recorded What is the highest level of school you have completed or the highest degree you have received? 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 Melaton-Thean- Zwgr-[id number]-WYp lm (MELATONIN + L-THEANINE) CAPS documented as of this encounter Plan of Treatment Upcoming Encounters Date Type Department Care Team (Late st Contact Info) Description 04/08/2025 9:15 AM CDT Appointment Department of Radiology, [facility], in [place], [place] [address] [place] [address] Anette Clark M.D. [address] [place] [address] 04/08/2025 3:00 PM CDT Comprehensive Visit Division of Vascular and Endovascular Surgery in [place], [place] [address] [place] [address] Kali Lang M.D., M.S. 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 us Alvin Hayes M.D. 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 Administered Medications Inactive Administered Medications - up to 3 most recent administrations Medication Order MAR Action Action Date Dose Rate Site iopromide 370 mg iodine/mL injection 1-162 mL (Ultravist) 1-162 mL, intravenous, Once in imaging, contrast, Starting on Mon01/22/25 at 0720, For 1 dose, Imaging Protocol Orders, Dose per Radiant Medication Guidelines Given 01/22/2025 7:24 AM CDT 100 mL sodium chloride (PF) 0.9 % injection 1-100 mL 1-100 mL, intravenous, Once, On Mon01/22/25 at 0745, For 1 dose, Imaging Protocol Orders, Dose per Radiant Medication Guidelines Given 01/22/2025 7:24 AM CDT 30 mL documented in this encounter
--- OUTSIDE RECORDS SUMMARY | 2025-01-28 10:00 | XMS_ITS | Encounter Summary ---
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 [address] [place] [address] Phone: tel: fax: 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 [address] [place] [address] Phone: tel: fax: [facility] Referral ID Status Reason Start Date Expiration Date V isits Requested Visits Authorized [id number] Authorized 01/28/2025 07/30/2026 [address] 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 [address] [place] [address] Phone: tel: fax: [facility] Referral ID Status Reason Start Date Expiration Date Visits Re quested Visits Authorized [id number] Closed 01/16/2025 07/18/2026 1 1 Encounter Details Date Type Department Care Team (Latest Contact Info) Description 01/28/2025 10:00 AM CDT Comprehensive Visit Division of Vascular and Endovascular Surgery in [place], [place] [address] [place] [address] Anette Clark M.D. 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 I have a [facility] place to live 02/14/2024 Education Answer Date Recorded What is the highest level of school you have completed or the highest degree you have received? 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 - 01/28/2025 10:00 AM CDT Devin Desai : 1950 Visit Date: 01/27/25 Referring provider: Alvin Hayes M.D. SUBJECTIVE CHIEF COMPLAINT/ REASON FOR VISIT: HISTORY OF PRESENT ILLNESS: Devin Desai is a 74 y.o. male that comes to the clinic for evaluation. Mr. 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 He has had negative temporal artery biopsies but was treated with azathioprine for several years. This has been discontinued and he has had quiescence of his disease on surveillance labs since then. On his most recent CT scan of his abdomen and pelvis his descending thoracic aorta measures 5.6 cm with no signs of active vasculitis. We do not have a CT angiogram of his chest at this time to evaluate the remainder of his descending thoracic aorta or his ascending thoracic aorta. In February of 2023 his distal descending thoracic aorta measured 4.9 cm. This gives him a growth rate of 2-3 mm per year over the past 2 years, which is a slow growth rate. He currently denies any abdominal pain or backpain. He is a never smoker and has no family history of aneurysms or connective tissue disorders. He has a surgical history of a mitral valve repair, otherwise no prior surgeries. The current medications, allergies, medical, surgical, social, and family history sections of the chart have been reviewed and updated as pertinent. VAS Surgery VQI Screening Current Medications[1] REVIEW OF SYSTEMS: Pertinent items are noted in HPI; all other systems were reviewed per Health History. OBJECTIVE VITAL SIGNS There were no vitals filed for this visit. PHYSICAL EXAM: General: Alert and oriented, No acute distress. Neck: Supple, Non-tender. Respiratory: Chest has a well-healed median sternotomy incision, Lungs are clear to auscultation. Respirations are non-labored. Breath sounds are equal. Heart: Regular rate and rhythm, no murmur appreciated. Abdomen: Soft, Non-tender, no masses. Cognition and Speech: Speech clear and coherent. Functional cognition intact. Psychiatric: Cooperative, appropriate mood & affect. Extremities: Warm, well perfused, no edema. DIAGNOSTIC STUDIES: I have reviewed the patient's current laboratory, imaging, and other diagnosticstudies as pertinent. ASSESSMENT / PLAN Mr. Desai is a 74-year-old man who comes for evaluation of a thoracoabdominal aortic aneurysm whichhas been gradually enlarging over time, now to a maximum of 5.6 cm in the distal descending thoracic component. 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 We will plan for him to return to the clinic in 2-3 months with a repeat CT angiogram of his chest, abdomen and pelvis and for an evaluation with Dr. Canada for consideration of an endovascular repair. I have discussed with him options of both open and endovascular repair for a thoracoabdominal aortic aneurysms in his preference is to proceed with an endovascular repair. Depending on his current proximal thoracic aortic measurements, and quality of this landing zone, which will be determined on a CT angiogram of his chest, he may be a good candidate for fenestrated repair. DIAGNOSIS: Anette Clark M.D. [1] Current Medications: acetaminophen (TYLENOL) 500 mg tablet, Take 500 mg by mouth every 6 (six) hours as needed for pain. aspirin [address] tablet, Take 81 mg by mouth daily. Every other day atorvastatin (Lipitor) 40 mg tablet, Take 1 tablet (40 mg total) by mouth daily. diphenhydrAMINE (BenadryL) 25 mg capsule, Take 25 mg by mouth at bedtime as needed. levothyroxine (SYNTHROID, LEVOTHROID) 137 mcg tablet, Take 137 mcg by mouth every morning before breakfast. naproxen sodium 220 mg capsule, Take 220 mg by mouth as needed. sildenafiL (Viagra) 100 mg tablet, 20 mg UNABLE TO FIND, Take by mouth. Zmdpnbz-Hkyrl-Bwaz-PassF-LBalm (MELATONIN + L- THEANINE) CAPS * Carlos Hale M.D. - 01/28/2025 10:00 AM CDT Devin Desai : 1950 Visit Date: 01/28/25 Referring provider: Alvin Hayes M.D. SUBJECTIVE CHIEF COMPLAINT/ REASON FOR VISIT: Thoracoabdominal aortic aneurysm HISTORY OF PRESENT ILLNESS: Devin Desai is a 74 y.o. male that comes to the clinic for evaluation. The patient reports that he has an aortic aneurysm which he has known about for many years. It was quite stable around 4cm for some time, and was around 4.5cm on his last CT scan back in 2022. He states that unfortunately there was a scheduling mishap and he did not undergo any surveillance studiesin 2023, and now on his most recent scan in January the aneurysm had increased to a maximum of 5.6cm, and here therefore was referred for consideration of repair. History is notable for aortitis in 1999 which was presumed to be giant cell arteritis (although temporal artery biopsy was negative). He was on azathioprine for some time for this, but that has sincebeen discontinued and he has had quiescence of his disease on surveillance labs. He has not had any abdominal or back pain to suggest symptoms from the aneurysm. He is a never smoker and has no family history of aneurysms or connective tissue disease. Surgical history notable for mitral valve repair, otherwise no prior cardiovascular procedures. The patient lives with his in a downstairs/in-law apartment at adult child's house. He is fully independent and manages his own ADL's, driving, groceries, cooking, etc. He gets no chest pain or shortness of breath with exertion and can walk several miles without stopping. The current medications, allergies, medical, surgical, social, and family history sections of the chart have been reviewed and updated as pertinent. Vascular Surgery VQI Screening CVD: None CAD Symptoms: None Prior CHF: None Prior CABG: None Prior PCI: None COPD: No Diabetes: None Renal Function: Stage 1 Dialysis: No Hypertension: No Living status: Home Ambulatory status: Ambulates self Functional status: Self care Current Medications[1] REVIEW OF SYSTEMS: Pertinent items are noted in HPI; all other systems were reviewed per Health History. OBJECTIVE VITAL SIGNS There were no vitals filed for this visit. PHYSICAL EXAM: General: Alert and oriented, No acute distress. Neck: Supple, Non-tender. Respiratory: Respirations are non-labored. Heart: Regular rate and rhythm Abdomen: Soft, Non-tender, no masses. Cognition and Speech: Speech clear and coherent. Functional cognition intact. Psychiatric: Cooperative, appropriate mood & affect. Extremities: Warm, well perfused, no edema. VASCULAR EXAM: Peripheral Vascular Pulse Exam Left Femoral: 2+ Posterior tibial: 2+ Radial: 2+ Right Femoral: 2+ Posterior tibial: 2+ Radial: 2+ DIAGNOSTIC STUDIES: I have reviewed the patient's current laboratory, imaging, and other diagnosticstudies as pertinent. CT chest 01/13/25: Sinus of Valsalva unchanged at 42 mm Sinotubular junction unchanged at 37 mm Mid ascending thoracic aorta unchanged at 49 mm Mid arch of aorta 34 mm unchanged from prior exams. Proximal descending thoracic aorta 34 mm, previously 32 mm. Mid descending thoracic aorta 42 mm, previously 40 mm Distal descending thoracic 56 mm, previously 49 mm. ASSESSMENT / PLAN Mr. Desai is a robust 74-year-old man who comes for evaluation of a thoracoabdominal aortic aneurysm which has been gradually enlarging over time, now to a maximum of 56mm in the distal descending thoracic component, in the setting of quiescent (presumed) giant cell arteritis. 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 He will likely need to undergo placement of a fenestrated endograft to provide a durable distal sealing zone. Given the extent of his aneurysm and need for involvement of the paravisceral segment of the aorta,he should likely wait until the aneurysm grows a little larger before proceeding with repair. We will therefore arrange for the patient to be seen by Dr. Canada in a few months for consideration of endovascular repair with a repeat CTA chest+abdomen+pelvis. 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 [1] Current Medications: acetaminophen (TYLENOL) 500 mg tablet, Take 500 mg by mouth every 6 (six) hours as needed for pain. aspirin [address] tablet, Take 81 mg by mouth daily. Every other day atorvastatin (Lipitor) 40 mg tablet, Take 1 tablet (40 mg total) by mouth daily. diphenhydrAMINE (BenadryL) 25 mg capsule, Take 25 mg by mouth at bedtime as needed. levothyroxine (SYNTHROID, LEVOTHROID) 137 mcg tablet, Take 137 mcg by mouth every morning before breakfast. naproxen sodium 220 mg capsule, Take 220 mg by mouth as needed. sildenafiL (Viagra) 100 mg tablet, 20 mg UNABLE TO FIND, Take by mouth. Cbbrzsr-Xifie-Bhzw-PassF-LBalm (MELATONIN + L- THEANINE) CAPS documented in this encounter Plan of Treatment Upcoming Encounters Date Type Department Care Team (Late st Contact Info) Description 04/08/2025 9:15 AM CDT Appointment Department of Radiology, [facility], in [place], [place] [address] [place] [address] Anette Clark M.D. [address] [place] [address] 04/08/2025 3:00 PM CDT Comprehensive Visit Division of Vascular and Endovascular Surgery in [place], [place] [address] [place] [address] Kali Canada M.D., M.S. 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
--- OUTSIDE RECORDS SUMMARY | 2025-02-08 00:14 | XMS_ITS | Encounter Summary ---
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 Gender Identity Male 05/01/2021 11:53 PM CDT Sexual Orientation Straight 05/01/2021 11 :53 PM CDT documented as of this encounter Plan of Treatment Upcoming Encounters Date Type Department Care Team (Nan Contact Info) Description 05/29/2025 7:45 AM CDT Office Visit [facility] [address] [facility] [address] [place] [address] Arnulfo Hill PA-C [address] [place] [id number] Teodoro Birch MD [address] [place] [address] documented as of this encounter Visit Diagnoses Not on filedocumented in this encounter Care Teams Teller Head Relationship Specialty Start Date End Date Collette Gardner PA-C [facility] [address] [place] [address] PCP - General Physician Life Sciences Teacher 05/14/24 Teodoro Birch MD [address] [place] [address] Assigned Heart and Vascular Provider 05/09/21 Arnulfo Hill PA-C [address] [address] Physician Life Sciences Teacher Cardiovascular Disease 11/07/24 documented as of this encounter
--- OUTSIDE RECORDS SUMMARY | 2025-02-08 00:14 | XMS_ITS | Continuity of Care Document ---
Author Organization ID - [facility] [place] Address [address] [place] [address] Assessment Encounter Date Assessment Date Assessment LastModified by Organization Details LastModified Time 01/24/2025 01/24/2025 For the plantar plate attenuation of the left second metatarsophalangeal joint, the patient was advised to continue use of the current insole, which has provided significant relief. Modification of the insole was performed in clinic to include a first ray cutout and metatarsal bar, with the goal of further offloading the affected area and improving comfort, especially when transitioning the insole between different shoes. The patient was instructed to monitor for recurrence of symptoms and to add additional felt padding as needed if the current padding compresses over time. The rationale for this approach is based on the patient s positive response to conservative offloading and the absence of significant pain or functional limitation. For the right foot, mild subjective discomfort was addressed by adjusting the insole and pad placement. The patient was encouraged to continue experimenting with different footwear and to use the modified insole in various shoes to determine optimal comfort. No further intervention was deemed necessary at this time, as symptoms are mild and non-limiting. The patient was instructed to follow up as needed for any recurrence or worsening of foot symptoms, and to call the office if new issues arise. octavia Not available 01/24/2025 15:29:52 Plan of Treatment Reminders Order Date Submit Date Provider Last Modified By Organization Details Last Modified Time Details Appointments None record ed. Lab None record ed. Referral None record ed. Procedures None record ed. Surgeries None record ed. Imaging None record ed. Medication Orders None record ed. Patient TargetsNo targets recorded. Patient InstructionsNo instructions recorded. Reason for Referral None Reported. Medical Equipment None Reported. Allergies Allergen ID Allergen Name Allergen Category Reaction Reaction Severity Criticality Documentation Date Start Date Code Code System Note Provider Name and Address Organization Details Recorded Time Product containin g penicilli n (product) medicatio n Not available Not available Not available 01/10/2025 46034 8001 SNOMED Mandi Winter [facility] 12:10:22 71922 amoxicill in medicatio n Not available Not available Not available 01/10/2025 723 RxNorm Mandi Winter [facility] 12:10:29 Medications Name Sig Start Date Stop Date Status Note LastModified by Organization Details LastModified Time levothyroxin e 137 mcg tablet 137 mcg ( 1 tablet ) orally every day* active Not Available Not Available No t Available doxycycline hyclate 100 mg capsule 100 mg ( 1 capsule ) orally twice a day for 7 days* 01/10 completed Not Available Not Available Not Available methylpredni solone 4 mg tablets in a dose pack BY MOUTH PER PACKAGE DIRECTIO NS* active Not Available Not Available No t Available azithromycin 500 mg tablet 500 mg orally once; one tablet once; 30-60min prior to dental procedur e* 01/10 completed Not Available Not Available Not Available aspirin active Not Available Not Avail able Not Available Eliquis 5 mg tablet Take 1 tablet (5 mg) by mouth 2 times daily* 01/10 completed Not Available Not Available Not Available Vitals None Recorded Social History None recorded. Functional Status None recorded. Mental Status None recorded. Family History Nothing Reported. Medical History No medical history recorded. Past Encounters Encounter ID Performer Location Encounter Start Date Encounter Closed Date Diagnosis/Indication Diagnosis SNOMED-CT Code Diagnosis ICD10 Code Diagnosis Note [id number] JENS CASH DPM [facility] [address] [place] [address] 01/03/2025 09:00:29 01/07/2025 15:48:43 Metatarsalgia of left foot [id number] 83969 M77.42 Total time spent on the E/M service was 45 minutes, which included reviewing patient history, performing a medically appropriat e examinatio n, counseling the patient, and documentin g clinical informatio n. This time excludes any procedures or imaging potentiall y obtained during this visit. Metatarsal gilbert of right foot [id number] 22699 M77.41 Bilateral hallux valgus 6213036549 M20.11 M20.12 Leg length inequality 45 212443 M21.70 [id number] JENS CASH DPM [address] [address] 01/24/2025 09:00:50 01/24/2025 15:41:35 Metatarsalgia of left foot [id number] 58063 M77.42 Metatarsal gilbert of right foot 2551334725 36871 M77.41 Bilateral hallux valgus 7433604185 M20.11 M20.12 Leg length inequality 45 741707 M21.70 Health Concerns Section Related Observation LastModified by Organization Detai ls LastModified Time None Recorded Concern Status LastModified by Organization Details LastModified Time None Recorded Payers Encounter Date Sequence Insurance Name Policy Number Policy Moon Covered Member ID Moon Member ID Guarantor Name 01/24/2025 1 [employer] [employer] Shayy Desai [id number] Devin Desai Notes Date Note Type Note Provider Name and Address Organization Details Recorded Time 01/24/2025 text/html The patient returns for follow-up regarding a history of left foot second metatarsal plantar plate attenuation. They report significant improvement in their left foot symptoms since starting use of the new insoles with MT pads, with no current trouble or pain in that foot. The right foot is described as feeling a little funny at times, especially after removing shoes at the end of the day, but not associated with significant pain just mild discomfort. The patient notes that the discomfort is more toward the back of the foot, but overall, the symptoms are much improved compared to prior visits. They mention that the Budin splint provided previously was not well tolerated, as it created too much pressure at the site of pain. The patient prefers the current insole and metatarsal pad arrangement, though they note that the pad placement may not be ideal and sometimes feels strange, especially in certain shoes. They have experimented with various footwear, including Teva sandals, closed-toe sandals, and a new pair of shoes recommended by their daughter, finding the new shoes comfortable despite a lower heel drop that initially felt unusual. The patient is able to perform activities such as mowing the lawn without foot discomfort, even in flat, unsupportive sandals. JENS CASH DPM [address] [place], [address], [facility] 01/24/2025 15:29:59
--- OUTSIDE RECORDS SUMMARY | 2025-02-08 00:14 | XMS_ITS | Encounter Summary ---
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 Gender Identity Male 05/01/2021 11:53 PM CDT Sexual Orientation Straight 05/01/2021 11 :53 PM CDT documented as of this encounter Plan of Treatment Upcoming Encounters Date Type Department Care Team (Late st Contact Info) Description 05/29/2025 7:45 AM CDT Office Visit [address] [address] Arnulfo Hill PA-C [address] [place] [id number] Teodoro Birch MD [address] [place] [address] documented as of this encounter Visit Diagnoses Not on filedocumented in this encounter Care Teams Natural Resources Extension Educator Relationship Specialty Start Date End Date Collette Gardner PA-C [facility] [address] [place] [address] PCP - General Physician Gun Repair Clerk 05/14/24 Teodoro Birch MD [address] [place] [address] Assigned Heart and Vascular Provider 05/09/21 Arnulfo Hill PA-C [address] [place] [address] Physician Gun Repair Clerk Cardiovascular Disease 11/07/24 documented as of this encounter
--- OUTSIDE RECORDS SUMMARY | 2025-02-08 00:14 | XMS_ITS | Encounter Summary ---
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 Gender Identity Male 05/01/2021 11:53 PM CDT Sexual Orientation Straight 05/01/2021 11 :53 PM CDT documented as of this encounter Plan of Treatment Upcoming Encounters Date Type Department Care Team (Late st Contact Info) Description 05/29/2025 7:45 AM CDT Office Visit [address] [phone] Arnulfo Hill PA-C [address] [id number] Teodoro Birch MD [address] [place] [id number] documented as of this encounter Visit Diagnoses Not on filedocumented in this encounter Care Teams Credit Interviewer Relationship Specialty Start Date End Date Collette Gardner PA-C [facility] [address] [place] [address] PCP - General Physician Wool Hat Finisher 05/14/24 Teodoro Birch MD [address] [place] [id number] Assigned Heart and Vascular Provider 05/09/21 Arnulfo Hill PA-C [address] [id number] Physician Wool Hat Finisher Cardiovascular Disease 11/07/24 documented as of this encounter
--- OUTSIDE RECORDS SUMMARY | 2025-02-08 00:15 | XMS_ITS | Encounter Summary ---
Author Organization [facility] Address [address] [place] [address] Care Team Providers Care Drying Rack Changer Name Role Phone Ip, Teodoro Velazquez MD Unavailable [phone] No Ref-Primary, Physician Primary Care Provider Mich Yanes MD Unavailable Collette Gardner PA-C Primary Care Provider Arnulfo Hill PA-C Unavailable Encounter Details Date Type Department Care Team (Late st Contact Info) Description 01/07/2022 [facility] Medical Advice [facility] [address] [place] [address] Lisa Odom, RN Social History [...] PM CDT Legal Sex Male 4:13 AM SPOT WELDER LINE Gender Identity Male 05/01/2021 11:53 PM CDT [...] Description 05/29/2025 7:45 AM CDT Office Visit [facility] [address] [facility] [address] [place] [phone] Arnulfo Hill PA-C [address] [place], [place] [address] Teodoro Birch MD [address] [place], [place] [phone] documented as of this encounter Visit Diagnoses Not on filedocumented in this encounter Care Teams Drying Rack Changer Relationship Specialty Start Date End Date No Ref-Primary, Physician PCP - General 06/18/21 05/13/24 Collette Gardner PA-C [facility] [address] [place] [address] PCP - General Physician Med Spec 05/14/24 Teodoro Birch MD [address] [place], [place] [address] Assigned Heart and Vascular Provider 05/09/21 Mich Yanes MD [address] [place] [address] Assigned PCP 05/27/21 08/04/24 Arnulfo Hill PA-C [address] [address] Physician Med Spec Cardiovascular Disease 11/07/24 documented as of this encounter
--- OUTSIDE RECORDS SUMMARY | 2025-02-08 00:15 | XMS_ITS | Clinical Summary ---
Author Organization [facility] Address [address] [place] [address] Care Team Providers Care Basic Sciences Dean Name Role Phone Unassigned, Provider Primary Care [...] for each transition of care or referral. [employer] Allergies Active Allergy Reactions Criticality Noted Date Comments Penicillins Hives High 07/10/2016 Medications azaTHIOprine (IMURAN) 50 MG tablet Take 50 mg by mouth daily. Active levothyroxine (SYNTHROID) 150 MCG tablet Take 150 mcg by mouth daily. Active aspirin 81 MG chewable tablet Take 81 mg by mouth daily. Active metoprolol tartrate (LOPRESSOR) 25 MG tablet Take 25 mg by mouth daily. 2 Active methylPREDNISol one (MEDROL 21 TABLET DOSEPACK) 4 MG tablet Follow package directions 21 Tablet 2 Active methocarbamol (ROBAXIN) 500 MG tablet Take 1 Tablet (500 mg) by mouth at bedtime as needed for Other. 20 Tablet 2 Active Active Problems No known active problems Immunizations Immunization Administration Dates Next Due Td 05/19/1992,07/02/1980 Varicella 06/23/1998(Deferred: Immune by Desire saunders) Social History Tobacco Use Types Packs/Day Years Used Date Smoking Tobacco: Never Smokeless Tobacco: Never Sex and Gender Information Value Date Recorded Sex Assigned at Not on file Legal Sex Male 3:44 AM CDT Gender Identity Not on file Sexual Orientation Not on file Last Filed Vital Signs Vital Sign Reading Time Taken Comments Blood Pressure 150/77 01/29/2022 11:45 AM CDT Pulse 58 01/29/2022 11:45 AM CDT Temperature 36.8 C (98.2 F) 01/29/2022 11:45 AM CDT Respiratory Rate 18 01/29/2022 11:45 AM CDT Oxygen Saturation 99% 01/29/2022 11:45 AM CDT Inhaled Oxygen Concentration - - Weight - - Height - - Body Mass Index - - Plan of Treatment Health Maintenance Due Date Last Done Comments Colon Cancer Screening Plan Due 1950 Hep C Screening (Preventive Services) 1950 Adult Preventive Visit 06/22/1999 06/22/1998, 1996 Cholesterol 02/03/2002 02/03/1997 COVID-19 Vaccine ( season) 2024 05/11/2021 Influenza Vaccine (Season Ended) 2025 06/01/2021, 05/12/2020, 04/23/2019, Additional history exists RSV Vaccine (1 - 1-dose 75+ series) 2026 DTaP/Tdap/Td Vaccine (3 - Tdap) 12/21/2030 12/21/2020, 09/06/2013, 01/05/2006, Additional history exists Zoster/Shingles Vaccine Completed 12/10/19 19, 06/19/2018, 02/25/2015 Pneumococcal Vaccine 50+ Yrs Completed , 10/31/2017, 01/31/2017, Additional history exists HepA Vaccine Aged Out No longer eligi ble based on patient's age to complete this topic HepB Vaccine Aged Out No longer eligi ble based on patient's age to complete this topic Hib Vaccine Aged Out No longer eligi ble based on patient's age to complete this topic MCV4 Vaccine Aged Out No longer eligi ble based on patient's age to complete this topic Meningococcal B Vaccine Aged Out No l onger eligible based on patient's age to complete this topic Procedures Procedure Name Priority Date/Time Associated Diagnosis Comments LIPID PANEL, FAST > 12 HOUR Routine 02/03/1997 9:27 AM CDT from Last 3 Months or Most Recently Relevant to Health Maintenance Results * FASTING LIPID PANEL (>12HR FAST) INCL:CHOL,HDL,TRIG,LDL(CALC (02/03/1997 9:27 AM CDT) Cholesterol 155 <240 mg/dl [facility] Triglyceride 65 <300 mg/dl [facility] HDL 49 >35 mg/dl [facility] LDL, Calc. 93 mg/dl [facility] Hours Fasting 12 hours [facility] 02/03/1997 9:27 AM CDT 02/03/1997 9:28 AM CDT Gustavo Rust MD LAB_1 Final Res ult Performing Organization Address City/State/[facility] Co de Phone Number [facility] [address] [address] from Last 3 Months or Most Recently Relevant to Health Maintenance Insurance [facility] FEDERAL MEDICARE PART A Care Teams Basic Sciences Dean Relationship Specialty Start Date End Date Unassigned, Provider [address] [place] [address] PCP - General 12/29/05
--- OUTSIDE RECORDS SUMMARY | 2025-02-08 00:16 | XMS_ITS | Encounter Summary ---
Author Organization [facility] Address [address], [place] [address] Care Team Providers Care Bundling Machine Operator Name Role Phone Unassigned, Provider Primary Care [...] on filedocumented in this encounter Care Teams Bundling Machine Operator Relationship Specialty Start Date End Date Unassigned, Provider [address] [place] [address] PCP - General 12/29/05 documented as of this encounter
--- OUTSIDE RECORDS SUMMARY | 2025-02-08 00:17 | XMS_ITS | Encounter Summary ---
Author Organization [facility] Address [address] [place] [address] Care Team Providers Care K9 Handler Name Role Phone Collette Gardner PA-C Primary Care Provider Teodoro Birch MD Unavailable No Ref-Primary, Physician Primary Care Provider Mich Yanes MD Unavailable Collette Gardner PA-C Primary Care Provider Arnulfo Hill PA-C Unavailable Encounter Details Date Type Department Care Team (Late st Contact Info) Description 06/01/2021 [facility] Medical Advice [address] [place] [address] Marci Junior Social History Tobacco Use Types Packs/Day Years Used Date Smoking Tobacco: Never Smokeless Tobacco: Never Alcohol Use Standard Drinks/Week Comments Yes 0 (1 standard drink = 0.6 oz pur e alcohol) glass of wine daily Sex and Gender Information Value Date Recorded Sex Assigned at Male 05/01/2021 11:53 PM CDT Legal 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 Gender Identity Male 05/01/2021 11:53 PM CDT [...] Description 05/29/2025 7:45 AM CDT Office Visit [facility] [address] [place] [address] [address] [place] [phone] Arnulfo Hill PA-C [address] [place], [place] [phone] Teodoro Birch MD [address] [place], [place] [address] documented as of this encounter Visit Diagnoses Not on filedocumented in this encounter Care Teams K9 Handler Relationship Specialty Start Date End Date Collette Gardner PA-C [facility] [address], [place] [address] PCP - General Physician Supervisor Soakers 01/12/21 06/17/21 No Ref-Primary, Physician PCP - General 06/18/21 05/13/24 Collette Gardner PA-C [facility] [address], [place] [address] PCP - General Physician Supervisor Soakers 05/14/24 Teodoro Birch MD [address] [place], [place] [phone] Assigned Heart and Vascular Provider 05/09/21 Mich Yanes MD [address] [place] [address] Assigned PCP 05/27/21 08/04/24 Arnulfo Hill PA-C [address] [address] Physician Supervisor Soakers Cardiovascular Disease 11/07/24 documented as of this encounter
--- OUTSIDE RECORDS SUMMARY | 2025-02-08 00:17 | XMS_ITS | Clinical Summary ---
Author Organization [facility] Address [address] [place] [address] Care Team Providers Care Hoisting Engineer Pile Driving Name Role Phone Unavailable Primary Care Provider Unavailabl e Source Comments Patient records contain information from all sites at [facility]. For routine questions regarding patient records, call [phone] during business hours, M-F 8:00 AM - 5:00 PM Central Time. Record requests for emergency care only can be directed to [phone] at any time.[facility] Allergies Active Allergy Reactions Criticality Noted Date Comments Amoxicillin Rash 02/09/2004 Penicillins Hives (Reselect Reaction) High 6 Medications * This document contains information received from the source organization and may not represent a complete record from that organization. levothyroxine (SYNTHROID, LEVOTHROID) 137 mcg tablet Take 137 mcg by mouth every morning before breakfast. 0 [address] Active [address] tablet Take 81 mg by mouth daily. Every other day Active sildenafiL (Viagra) 100 mg tablet 20 mg 0 Active UNABLE TO FIND Take by mouth. Melaton-The an-Chris-Pas sF-LBalm (MELATONIN + L-THEANINE) CAPS Active naproxen sodium 220 mg capsule Take 220 mg by mouth as needed. Active acetaminophen (TYLENOL) 500 mg tablet Take 500 mg by mouth every 6 (six) hours as needed for pain. Active diphenhydrAMIN E (BenadryL) 25 mg capsule Take 25 mg by mouth at bedtime as needed. Active atorvastatin (Lipitor) 40 mg tablet Take 1 tablet (40 mg total) by mouth daily. 90 tablet 3 5 Active losartan (Cozaar) 25 mg tablet Take 0.5 tablets (12.5 mg total) by mouth daily. 45 tablet 3 5 Active niacin 500 mg ER capsule Take 500 mg by mouth at bedtime. 01/15/20 25 Discontinued oxyCODONE (ROXICODONE) 5 mg immediate release tablet Take 5 mg by mouth as needed for pain. 3 01/15/20 25 Discontinued Senexon-S 8.6-50 mg per tablet Take by mouth as needed. 3 01/15/20 25 Discontinued methocarbamoL (Robaxin) 500 mg tablet Take 500 mg by mouth daily as needed. 2 01/15/20 25 Discontinued metoprolol tartrate (Lopressor) 25 mg tablet Take 25 mg by mouth daily. 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 Date Type Department Care Team Description 01/30/2025 Refill Department of Cardiovascular Medicine in [place], [place] [address] [place] [address] Alvin Hayes M.D. Med Refill 01/28/2025 10:00 AM CDT Comprehensive Visit Division of Vascular and Endovascular Surgery in [place], [place] [address] [place] [address] Anette Clark M.D. 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 01/22/2025 6:31 AM CDT - 01/22/2025 11:59 PM CDT Hospital Encounter Department of Radiology, [facility], in [place], [place] [address] [place] [phone] Alvin Hayes M.D. 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 Head Neck Angiogram with IV Contrast 01/20/2025 3:24 PM CDT - 01/20/2025 11:59 PM CDT Hospital Encounter Department of Radiology, [facility] in [place], [place] [address] [place] [phone] Alvin Hayes M.D. 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 Vasculitis Discharge Disposition: Home or Self Care 01/13/2025 9:37 AM CDT - 01/13/2025 10:49 AM CDT Hospital Encounter Department of Radiology, [facility], in [place], [place] [address] [place] [address] Vera Fernandez APRN CJayeshNJayeshP., M.S. Vasculitis Discharge Disposition: Home or Self Care 01/10/2025 9:45 AM CDT Clinical Communication Virtual Review in [place], [place] [address] [place] [address] Pre-visit Intake from Last 3 Months Immunizations Immunization Administration Dates Next Due HZV (ZOSTAVAX) 02/25/2015 Family History Medical History Relation Name Comments Colon cancer Brother 1 Isaiah Cast Diabetes Brother 2 Abhishek Cast Relation Name Status Comments Brother 1 Isaiah Cast Brother 2 Abhishek Cast Social History Tobacco Use Types Packs/Day Years Used Date Smoking Tobacco: Never Smokeless Tobacco: Never Tobacco Cessation:Counseling Given: Not Answered Alcohol Use Standard Drinks/Week Comments Yes 3 (1 standard drink = 0.6 oz pur e alcohol) [facility] [employer] Answer Date Recorded In the past 12 months has [facility] [employer], gas, oil, or water [employer] threatened to shut off services in your [...] your living situation today? I have a [place] place to live 02/14/2024 Education Answer Date Recorded What is the highest level of school you have completed or the highest degree you have received? Associate degree: occupational, technical, or vocational program 12/18/2021 Sex and Gender Information Value Date Recorded Sex Assigned at Male 11/28/2018 12:14 PM CDT Legal Sex Male 10:41 PM LICENSED WEIGHER Gender Identity Male 11/28/2018 12:14 PM CDT Sexual Orientation Straight 11/28/2018 12 :14 PM CDT Last Filed Vital Signs Vital Sign Reading Time Taken Comments Blood Pressure 141/67 01/16/2025 7:44 AM CDT Pulse 48 01/16/2025 7:44 AM CDT Temperature 36.6 C (97.9 F) 02/21/2024 10:14 AM CDT Respiratory Rate - - Oxygen Saturation 98% 01/16/2025 7:44 AM CDT Inhaled Oxygen Concentration - - Weight 79.3 kg (174 lb 15 oz) 01/16/2025 7:44 AM CDT Height 176 cm (5' 9.29) 01/16/2025 7:44 AM CDT Body Mass Index 25.62 01/16/2025 7:44 AM CDT Plan of Treatment Upcoming Encounters Date Type Department Care Team (Late st Contact Info) Description 04/08/2025 9:15 AM CDT Appointment Department of Radiology, [facility], in [place], [place] [address] [place] [phone] Anette Clark M.D. [address] [place] [phone] 04/08/2025 3:00 PM CDT Comprehensive Visit Division of Vascular and Endovascular Surgery in [place], [place] [address] [place] [phone] Kali Lang M.D., M.S. [address] [place] [phone] Health Maintenance Due Date Last Done Comments CT Colonography 1950 Cologuard 1950 Thyroid Stimulating Hormone (TSH) test for thyroid function 1950 Colonoscopy 04/14/2004 04/14/1999 Colorectal Cancer Surveillance 04/14/2004 Potassium Level 03/07/2022 03/07/2021, 02/12, 03/05/2021, Additional history exists Sodium Level 03/07/2022 03/07/2021, 02/12, 03/05/2021, Additional history exists Fasting Glucose for Diabetes Screening 03/07/2024 03/07/2021, 03/06/2021, 03/05/2021, Additional history exists Depression Screening (Annual PHQ-2) 08/14/2024 COVID-19 Vaccine (6 - Pfizer risk season) 2024 07/03/2024, 05/19/2023, 05/11/2021, Additional history exists Creatinine Level (Kidney Function Test) 01/13/2026 01/13/2025, 02/21/2024, 02/15/2023, Additional history exists DTaP,Tdap,and Td Vaccines (3 - Td or Tdap) 12/21/2030 12/21/2020, 09/06/2013, 01/05/2006 Hepatitis C Screening Completed 07/25/2000 Zoster Vaccines Completed 12/09/2018, 1101/2018, 02/25/2015 Pneumococcal vaccine (50+ years) Completed 12/27/2018, 10/31/2017, 01/31/2017, Additional history exists RSV vaccine - (32-36 weeks) or 60+ years Completed 05/30/2023 Influenza Vaccine Completed 05/29/2024, , 05/18/2022, Additional history exists Fall Risk Screen (Annual) Completed 01/16/2025 Abdominal Aortic Aneurysm (AAA) Screen Discontinued 01/22/2025, 07/10/2016, 07/14/2013, Additional history exists HPV Vaccines Aged Out No longer eligi ble based on patient's age to complete this topic IPV Vaccines Aged Out No longer eligi ble based on patient's age to complete this topic Medical Devices Implanted Type Area Printing Grey Cloth Tender Device Identifier Shelf Expiration Date Model / Serial / Lot Cardiac Valve Prosthesis-03/03 Implanted:03/03 (Quantity not on file) Cardiac Valve Prosthesis Mitral Valve Manning [id number] / [id number] / Hardware [employer]. Pins/Screws/Jann s Hardware e.g. 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 Vasculitis ASPARTATE AMINOTRANSFERASE (AST), S/P Routine 01/13/2025 11:27 AM CDT Vasculitis CREATININE WITH EGFR, S/P Routine 01/13/2025 11:27 AM CDT Vasculitis C-REACTIVE PROTEIN (CRP), S/P Routine 01/13/2025 11:27 AM CDT Vasculitis SEDIMENTATION RATE, B Routine 01/13/2025 11:27 AM CDT Vasculitis CBC WITH DIFFERENTIAL, B Routine 01/13/2025 11:[address] CHEST ANGIOGRAM WITH IV CONTRAST RAD - Routine (most inpatients and all outpatients) 01/13/2025 11:08 AM CDT Vasculitis GLUCOSE, FASTING, S/P Routine 09/12/2012 8:06 AM LICENSED WEIGHER from Last 3 Months or Most Recently Relevant to Health Maintenance Results * CT Abdomen Pelvis Angiogram with [...] cerebral artery stenosis is demonstrated. Left origin EQUINE PHARMACOLOGY TECHNICIAN. Patent anterior communicating artery with diminutive right [...] ordercerebral artery stenosis is demonstrated. Left origin EQUINE PHARMACOLOGY TECHNICIAN. Patentanterior communicating artery with diminutive right A1. [...] Mild scattered calcific atherosclerotic changes as described. us Alvin Hayes M.D. IMG CT PROCEDURES Final Re sult * Sedimentation Rate (01/13/2025 11:27 AM CDT) Pathologist [facility] Sedimentation Rate, B 6 3 - 28 mm/h 01/13/2025 1:42 PM CDT DTL Blood (Blood, Venous) 01/13/2025 11:27 AM CDT 01/13/2025 11:54 AM CDT Vera Fernandez APRN C.N.P., M.S. LAB BLOOD AD D-ON Final Result [facility] [address] [place] [address], [facility] [place] [address] [place] [address] * (ABNORMAL) CBC with Differential, Blood (01/13/2025 11:27 AM CDT) [facility] Hemoglobin 13.3 13.2 - 16.6 g/dL 01/13/2025 [...] AD D-ON Final Result Performing Organization Address City/[facility]/ZIP Co de Phone Number [facility] [address] [facility] [facility] [place] [address] [place] [address] * CRP (C-Reactive Protein) (01/13/2025 11:27 AM CDT) [facility] C-Reactive Protein (CRP), S <3.0 <5.0 mg/L 01/13/2025 12:58 PM CDT DTL Blood (Blood, Venous) 01/13/2025 11:27 AM CDT 01/13/2025 12:16 PM CDT us Vera Fernandez APRN, C.N.P., M.S. LAB BLOOD AD D-ON Final Result [facility] [address] [facility] [facility] [place] [address] [place] [address] * AST (Aspartate Aminotransferase) (01/13/2025 11:27 AM CDT) Aspartate Aminotransferase (AST), S 24 8 - 48 U/L 01/13/2025 12:58 PM CDT DTL Blood (Blood, Venous) 01/13/2025 11:27 AM CDT 01/13/2025 12:16 PM CDT Teetee Sahu APRN.N.Vincent., M.S. LAB BLOOD AD D-ON Final Result Performing Organization Address City/[facility] Co de Phone Number [facility] [address] [place], [place] [phone] [place] [address] [place] [address] * Creatinine with Estimated GFR (01/13/2025 11:27 AM CDT) Creatinine 0.82 0.74 - 1.35 mg/dL 01/13/2025 12:58 PM CDT DTL Estimated GFR (eGFR) >90 >=60 mL/min/BSA 01/13/2025 12:58 PM CDT DTL Comment: Estimated GFR calculated using the 2020 CKD_EPI creatinine equation. Blood (Blood, Venous) 01/13/2025 11:27 AM CDT 01/13/2025 12:16 PM CDT Teetee Sauh APRN.N.P., M.S. LAB BLOOD AD D-ON Final Result [facility] [address] [place] [address], [place] [address] * CT Chest Angiogram with IV Contrast [...] 1000. Ascending aorta and arch vessels unchanged. Vera Fernandez APRN, C.N.P., M.S. IMG CT PROCE DURES Final Result * Glucose, Fasting (09/12/2012 8:06 AM LICENSED WEIGHER) Last Intake 13 HR [facility] Glucose, P 96 70 - 100 MG/DL [facility] 09/12/2012 8:06 AM LICENSED WEIGHER 09/12/2012 8:06 AM LICENSED WEIGHER Vera Fernandez APRN, Teetee.N.P., M.S. LAB BLOOD NO N ADD-ON Final Result [facility] [address] [place] [address], [facility] from Last 3 Months or Most Recently Relevant to Health Maintenance Insurance [facility] MED[facility]
--- OUTSIDE RECORDS SUMMARY | 2025-02-08 00:17 | XMS_ITS | Encounter Summary ---
Author Organization [facility] Address [address] [place] [address] Care Team Providers Care Automotive Vehicle Inspector Name Role Phone Unavailable Primary Care Provider Unavailabl e Reason for Visit * Reason Onset Date Comments Med Refill 01/30/2025 Encounter Details Date Type Department Care Team (Late st Contact Info) Description 01/30/2025 Refill Department of Cardiovascular Medicine in [place], [place] [address] [place] [address] Alvin Hayes M.D. [address] [place] [phone] Med Refill Social History Tobacco Use Types Packs/Day Years Used Date Smoking Tobacco: Never Smokeless Tobacco: Never Alcohol Use Standard Drinks/Week Comments Yes 3 (1 standard drink = 0.6 oz pur e alcohol) [facility] Utilities Answer Date Recorded In the past 12 months has [facility] [employer], gas, oil, or water [employer] threatened to shut off services in your [...] your living situation today? I have a [facility] place to live 02/14/2024 Education Answer Date Recorded What is the highest level of school you have completed or the highest degree you have received? 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 [address] [place] [phone] 04/08/2025 3:00 PM CDT Comprehensive Visit Division of Vascular and Endovascular Surgery in [place], [place] [address] [place] [address] Kali Lang M.D., M.S. [address] [place] [address] documented as of this encounter Visit Diagnoses Not on filedocumented in this encounter
--- OUTSIDE RECORDS SUMMARY | 2025-02-08 00:17 | XMS_ITS | Encounter Summary ---
Author Organization [facility] Address [address] [place] [address] Care Team Providers Care Health Communications Specialist Name Role Phone Unavailable Primary Care Provider Unavailabl e Encounter Details Date Type Department Care Team (Latest Contact Info) Description 01/23/2025 Clinical Communication Department of Cardiovascular Medicine in [place], [place] [address] [place] [address] Alvin Hayes M.D. [address] [place] [address] Social History Tobacco Use Types Packs/Day Years Used Date Smoking Tobacco: Never Smokeless Tobacco: Never Alcohol Use Standard Drinks/Week Comments Yes 3 (1 standard drink = 0.6 oz pur e alcohol) [facility] Utilities Answer Date Recorded In the past 12 months has [facility] [employer]), gas, oil, or water [employer] threatened to shut off services in your [...] your living situation today? I have a [facility] place to live 02/14/2024 Education Answer Date Recorded What is the highest level of school you have completed or the highest degree you have received? 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 [address] [place] [phone] 04/08/2025 3:00 PM CDT Comprehensive Visit Division of Vascular and Endovascular Surgery in [place], [place] [address] [place] [address] Kali Lang M.D., M.S. [address] [place] [phone] documented as of this encounter Visit Diagnoses Not on filedocumented in this encounter
--- OUTSIDE RECORDS SUMMARY | 2025-02-08 00:17 | XMS_ITS | Encounter Summary ---
Author Organization [facility] Address [address] [place] [address] Care Team Providers Care Cilnical Scientist Name Role Phone Unavailable Primary Care Provider Unavailabl e Encounter Details Date Type Department Care Team (Late st Contact Info) Description 01/21/2025 Results Follow-Up Department of Vascular Medicine in [place], [place] [address] [place] [address] Alvin Hayes M.D. [address] [place] [phone] [address] Head Neck Angiogram with IV Contrast Social History Tobacco Use Types Packs/Day Years Used Date Smoking Tobacco: Never Smokeless Tobacco: Never Alcohol Use Standard Drinks/Week Comments Yes 3 (1 standard drink = 0.6 oz pur e alcohol) [facility] Utilities Answer Date Recorded In the past 12 months has [facility] [employer], oil, or water [employer] threatened to shut off services in your [...] your living situation today? I have a [facility] place to live 02/14/2024 Education Answer Date Recorded What is the highest level of school you have completed or the highest degree you have received? 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 [address] [place] [address] 04/08/2025 3:00 PM CDT Comprehensive Visit Division of Vascular and Endovascular Surgery in [place], [place] [address] [place] [address] Kali Lang M.D., M.S. 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
--- OUTSIDE RECORDS SUMMARY | 2025-02-08 00:17 | XMS_ITS ---
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 Prostate cancer 06/21/2021 Acquired hypothyroidism 06/21/2021 S/P MVR (mitral valve repair )-[place]-Ambrosio NeoChords on flail P2 segment, 34 mm Manning Physio ring 03/08/2021 Fluid overload 03/08/2021 Transient hyperglycemia post procedure Mitral prolapse 02/09/2021 Overview (02/09/2021): Added automatically from request for surgery [id number] Status post coronary angiogram 02/04/2021 Nonrheumatic mitral valve regurgitation 01/26/20 Overview (01/25/2021): Added automatically from request for surgery [id number] Coronary artery disease invo lving [place] coronary artery of [place] heart without angina pectoris 01/25/2021 Overview (01/25/2021): Added automatically from request for surgery [id number] Current Treatment and Therapy Plans No current plan information found. Past Treatment and Therapy Plans No past plan information found. Lifetime Dose Tracking * Chemical Lifetime Dose Automatic Entry Manual Entr y Total Air Kerma 148.09 mGy 0 mGy 148.09 mGy Jeff DAP. 16.9 Gy-cm2 0 Gy-cm2 16.9 Gy-cm2
--- OUTSIDE RECORDS SUMMARY | 2025-02-08 00:17 | XMS_ITS | Clinical Summary ---
Author Organization [facility] Address [address] [place] [address] Care Team Providers Care Naval Aircrewman Avionics Name Role Phone Ip, Teodoro Velazquez MD Unavailable [phone] Collette Gardner PA-C Primary Care Provider Arnulfo Hill PA-C Unavailable Allergies Active Allergy Reactions Criticality Noted Date Comments Amoxicillin 07/14/2013 Penicillins 07/14/2013 Medications levothyroxine (SYNTHROID/LEVO THROID) 137 MCG tablet Take 137 mcg by mouth every morning. Man[facility] P[facility] Active diphenhydrAMINE (BENADRYL) 25 MG capsule Take 25 mg by mouth nightly as needed. Active Fhawntt-Jbuzw-L zyv-TkykJ-IQuzd (MELATONIN + L-THEANINE) CAPS Take by mouth every evening as needed. Active aspirin 81 MG EC tablet Take 81 mg by mouth every morning. 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 Prostate cancer 06/21/2021 Acquired hypothyroidism 06/21/2021 S/P MVR (mitral valve repair )-[place]-Ambrosio NeoChords on flail P2 segment, 34 mm Velasquez Physio ring 03/08/2021 Fluid overload 03/08/2021 Transient hyperglycemia post procedure Mitral prolapse 02/09/2021 Overview (02/09/2021): Added automatically from request for surgery [id number] Status post coronary angiogram 02/04/2021 Nonrheumatic mitral valve regurgitation 01/26/20 Overview (01/25/2021): Added automatically from request for surgery [id number] Coronary artery disease invo lving [place] coronary artery of [place] heart without angina pectoris 01/25/2021 Overview (01/25/2021): Added automatically from request for surgery [id number] Encounters Date Type Department Care Team Description 01/03/2025 8:00 AM CDT Office Visit [facility] [address] [facility] [address] [place] [phone] Arnulfo Hill PA-C Paroxysmal atrial fibrillation (H); History of mitral valve repair; Sinus bradycardia 01/03/2025 Travel 12/29/2024 Travel 12/26/2024 MyC Medical Advice [address] [place] [phone] Lisa Odom RN 12/02/2024 Orders Only (auto-released) [place] [id number] [place] [phone] Lisa Odom RN Paroxysmal atrial fibrillation (H); Persistent atrial fibrillation (H); S/P MVR (mitral valve repair) 12/02/[address] [place] [phone] Lisa Odom RN Clinic Care Coordination - Follow-up (Ziopatch monitor) from Last 3 Months Immunizations Immunization Administration Dates Next Due Flu 65+ (Fluad) 04/23/2019 Influenza (High Dose) Trivalent,PF (Fluzone) ,05/05/2016 Influenza Vaccine 65+ (Fluzone HD) 06/01/2021, Pneumo Conj 13-V (2010&after) 10/31/2017 Pneumococcal 23 valent 12/27/2018,07/29/2010 TDAP Vaccine (Boostrix) 12/21/2020,09/06/2013 Zoster recombinant adjuvanted (Shingrix) 019 Zoster vaccine, live 02/25/2015 Family History Medical [...] PM CDT 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 Gender Identity Male 05/01/2021 11:53 PM CDT Sexual Orientation Straight 05/01/2021 11 :53 PM CDT Last Filed Vital Signs Vital Sign Reading Time Taken Comments Blood Pressure 129/67 01/03/2025 8:01 AM CDT Pulse 39 01/03/2025 8:01 AM CDT Temperature 36.7 C (98 F) 05/14/2024 6:53 AM CDT Respiratory Rate 18 05/14/2024 6:53 AM CDT Oxygen Saturation 99% 01/03/2025 8:01 AM CDT Inhaled Oxygen Concentration - - Weight 80.2 kg (176 lb 12.8 oz) 01/03/2025 8:01 AM CDT Height 179.1 cm (5' 10.5) 01/03/2025 8:01 AM CD T Body Mass Index 25.01 01/03/2025 8:01 AM CDT Plan of Treatment Upcoming Encounters Date Type Department Care Team (Late st Contact Info) Description 05/29/2025 7:45 AM CDT Office Visit [address] [place] [address] Arnulfo Hill PA-C [address] [phone] Teodoro Birch MD [address] [place] [address] Health Maintenance Due Date Last Done Comments ADVANCE CARE PLANNING 1950 ANNUAL REVIEW OF HM ORDERS [address] CT COLONOGRAPHY 1951 FIT 1951 FLEX SIG 1951 sDNA (Cologuard) 1951 COLONOSCOPY 1961 COLORECTAL CANCER SCREENING 1961 HEPATITIS C SCREENING 1969 LIPID 1991 RSV VACCINE (1 - Risk 60-74 years 1-dose series) 2011 MEDICARE ANNUAL WELLNESS VISIT 2016 06/22/1998, 01/20/1997 ZOSTER VACCINE (3 of 3) 02/03/2019 12/09/2018, 02/25 TSH W/FREE T4 REFLEX 01/12/2022 01/12/2021 FALL RISK ASSESSMENT 06/21/2022 06/21/2021 DIABETES SCREENING 03/07/2024 03/07/2021, 0 03/06/2021, 03/06/2021, Additional history exists COVID-19 VACCINE (4 - 2023- season) 2024 07/03/2024, 05/19/2023, 05/11/2021 DTAP/TDAP/TD VACCINE (3 - Td or Tdap) 12/21/2030 12/21/2020, 09/06/2013, 01/05/2006, Additional history exists PNEUMOCOCCAL VACCINE 50+ YEARS Completed 12/27/2018, 10/31/2017, 07/29/2010 INFLUENZA VACCINE Completed 05/29/2024, , 05/18/2022, Additional history exists PHQ-2 (once per calendar year) Completed 01/03/2025, 03/27/2024, 06/21/2021 HPV VACCINE Aged Out No longer eligi ble based on patient's age to complete this topic MENINGITIS VACCINE Aged Out No longer eligible based on patient's age to complete this topic Medical Devices Implanted Type Area Wrist Closer Device Identifier Shelf Expiration Date Model / Serial / Lot Annuloplasty Ring Terri Velasquez Physio Ii 24mm [id number] - [id number] Implanted:Qty: 1 on 03/03/2021 by Merlin Rouse MD at [facility] Annuloplasty Ring N/A: Heart [employer] 11/17/2025 [id number] / [id number] / Imp Kit Suture Cor-Knot Mini 4x14mm [id number] - [id number] Implanted:Qty: 1 on 03/03/2021 by Merlin Rouse MD at [facility] Metallic Hardware/Ancho r N/A: Chest [employer] 02/10/2023 [id number] / / [id number] Device Villalta Endo Cor Knot Quick Load [id number] - [id number] Implanted:Qty: 1 on 03/03/2021 by Merlin Rouse MD at [facility] Wire N/A: Chest [employer] [id number] 11/11/2022 [id number] / / [id number] Device Villalta Endo Cor Knot Quick Load [id number] - [id number] Implanted:Qty: 1 on 03/03/2021 by Merlin Rouse MD at [facility] Wire N/A: Chest [employer] [id number] 05/13/2022 [id number] / / [id number] Procedures Procedure Name Priority Date/Time Associated Diagnosis Comments EKG 12-LEAD COMPLETE W/READ - CLINICS Routine 01/03/2025 Paroxysmal atrial fibrillation (H) History of mitral valve repair Sinus bradycardia ZIO PATCH MAIL OUT Routine 12/24/2024 9: 07 PM CDT Paroxysmal atrial fibrillation (H) Persistent atrial fibrillation (H) S/P MVR (mitral valve repair) BASIC METABOLIC PANEL Add-On 03/07/2021 7:22 AM CDT TSH WITH FREE T4 REFLEX Routine 01/12/2021 10:53 PM CDT from Last 3 Months or Most Recently Relevant to Health Maintenance Results * EKG 12-lead complete w/read - Clinics (performed today) (01/03/2025) Arnulfo Hill PA-C ECG ORDERABLES Final Result * ZIO PATCH MAIL OUT (12/24/2024 9:07 PM CDT) Zio Prelim Results Patient had a min HR of 29 bpm, max HR of 176 bpm, and avg HR of 57 bpm. Predominant underlying rhythm was Sinus Rhythm. Slight P wave morphology changes were noted. 1 run of Ventricular Tachycardia occurred lasting 10 beats with a max rate of 152 bpm (avg 146 bpm). 923 Supraventricular Tachycardia runs occurred, the run with the fastest interval lasting 5 beats with a max rate of 176 bpm, the longest lasting 10.9 secs with an avg rate of 130 bpm. Supraventricular Tachycardia was detected within +/- 45 seconds of symptomatic patient event(s). Isolated SVEs were frequent (12.8%, [id number]), SVE Couplets were frequent (5.3%, 93360), and SVE Triplets were frequent (6.8%, 78659). Isolated VEs were rare (<1.0%), VE Couplets were rare (<1.0%), and no VE Triplets were present. CARDIOLOGY RESULTS Anatomical Region Laterality Modality Other 12/24/2024 9:07 PM CDT Narrative 12/25/2024 6:09 PM CDT Indication: Atrial fibrillation 7 day Ziopatch monitor Baseline sinus rhythm with heart rates ranging 29-116, average 56 bpm. 1 run of NSVT lasting 10 beats 923 runs of SVT, longest lasting 11 seconds Frequent PACs, 25% burden Patient triggered events correlated with sinus rhythm with frequent PACs. Teodoro Birch MD [facility] ORDERAB LES Final Result * (ABNORMAL) Basic metabolic panel (03/07/2021 7:22 AM CDT) Sodium 135 133 - 144 mmol/L 03/07/2021 9:04 AM CDT LABORATORY Potassium 3.8 3.4 - 5.3 mmol/L 03/07/2021 9:04 AM CDT LABORATORY Chloride 103 94 - 109 mmol/L 03/07/2021 9:04 AM CDT LABORATORY Carbon Dioxide (CO2) 26 20 - 32 mmol/L 03/07/2021 9:04 AM CDT LABORATORY Anion Gap 6 3 - 14 mmol/L 03/07/2021 9:04 AM CDT LABORATORY Urea Nitrogen 14 7 - 30 mg/dL 03/07/2021 9:04 AM CDT LABORATORY Creatinine 0.80 0.66 - 1.25 mg/dL 03/07/2021 9:04 AM CDT LABORATORY Calcium 8.9 8.5 - 10.1 mg/dL 03/07/2021 9:04 AM CDT LABORATORY Glucose 106(H) 70 - 99 mg/dL 03/07/2021 9:04 AM CDT LABORATORY GFR Estimate >90 >60 mL/min/1.7 3m2 03/07/2021 9:04 AM T LABORATORY Comment:As of February 21, 2021, eGFR is calculated by the CKD-EPI creatinine equation, without race adjustment. eGFR can be influenced by muscle mass, exercise, and diet. The reported eGFR is an estimation only and is only applicable if the renal function is stable. Blood STRUCTURE OF LEFT UPPER LIMB / Unknown Venipuncture / Unknown 03/07/2021 7:22 AM CDT 03/07/2021 7:43 AM CDT us Bisi Jerry PA-C LAB - BLOOD ORDERABLES Fi nal Result LABORATORY [facility] [address] floor, [address] [place] [address], [facility] [phone] * TSH with free T4 reflex (01/12/2021 10:53 PM CDT) Pathologist [facility] TSH 1.35 0.40 - 4.00 mU/L 01/13/2021 12:00 AM CDT [facility] 01/12/2021 10:5 3 PM CDT 01/12/2021 11:04 PM CDT us Harshad Toribio MD LAB - BLOOD ORDERABLES Final Res ult [facility] [address] [place] [id number] [phone] from Last 3 Months or Most Recently Relevant to Health Maintenance Insurance [facility] [employer] MEDICARE [facility] [employer] MEDICARE Advance Directives For more information, please contact: [phone] * Full Code (Latest Code Status on File) Date Activated Date Inactivated Comments 03/03/2021 12:54 PM 03/07/2021 1:15 PM All basic and advanced life-sustaining interventions are performed as appropriate Question Answer Comments Code status determined by: Discussion with patie nt/ legal decision maker Care Teams Naval Aircre[employer] Relationship Specialty Start Date End Date Collette Gardner PA-C [facility] [address], [place] [address] PCP - General Physician Radial Drill Operator For Plastic 05/14/24 IpTeodoro MD [address] [place] [phone] Assigned Heart and Vascular Provider 05/09/21 Arnulfo Hill PA-C [address] [id number] Physician Radial Drill Operator For Plastic Cardiovascular Disease 11/07/24
[2025-02-08 11:12] LABS: Chloride* 103 mmol/L (96-114); Potassium* 4.9 mmol/L (3.6-5.1); Sodium* 139 mmol/L (135-149)
[2025-02-08 11:15] LABS: Blood Urea Nitrogen* 19 mg/dL (7-30); Creatinine* 0.8 mg/dL (0.5-1.5); Estimated Glomerular Filt Rate 93 ml/min
[2025-02-08 11:16] LABS: Anion Gap 9 mEq/L (7-15); Calcium* 9.7 mg/dL (8.4-10.6); Carbon Dioxide* 27 mmol/L (20-32); Glucose* 114 mg/dL (60-115)
== END 2025-02-07 12:58 | disposition home or self-care (01) ==
LOC: NPINS 12:58
PROVIDERS: PCP Physician Assistant Medical; Visit Provider Internal Medicine Cardiovascular Disease
DX: I71.21 Aneurysm of the ascending aorta, without rupture (principal)
CPT/HCPCS: 80048